=== PATIENT | female | born 1945 | race Caucasian/White ===

== ENCOUNTER → 2017-02-08 | Outpatient (CLI) | payer OTHER ==
[~2017-02-08] MED LIST: AMOX1TAB43 PO; ANT125 PO; ASPI81TA28 PO; CALC-393 PO; FLV1 PO; HYDR25TA5 PO; LISI40TA PO; METH2.5T PO; MULT-506 PO; TNR50 PO
[2017-02-08 19:06] LABS: URINE APPEARANCE CLEAR (CLEAR); URINE BILIRUBIN NEG (NEG); URINE COLOR YELLOW; URINE EPITHELIAL CELL AUTO >30 /lpf (0-5); URINE NITRITE NEG (NEG); URINE PH 7.5 (4.5-7.5); URINE SPECIFIC GRAVITY 1.011 (1.000-1.030); UROBILINOGEN NEG (NEG)
[2017-02-08 19:39] LABS: MANUAL MICROSCOPIC REQUIRED? NO; REVIEW REQ? YES
== END | disposition home or self-care (01) ==
LOC: C.LABSPEC 17:46
PROVIDERS: ATTEND Family Medicine
DX: R30.0 Dysuria (principal)

== ENCOUNTER → 2017-08-04 | Outpatient (CLI) | payer OTHER ==
[2017-08-04 12:43] LABS: BLOOD UREA NITROGEN 13 mg/dl (7-18); BUN/CREATININE RATIO 18.2 (10-20); CALCIUM 8.9 mg/dl (8.5-10.1); CARBON DIOXIDE 26 mmol/L (21-32); CHLORIDE 97 mmol/L (98-107); CREATININE 0.74 mg/dl (0.60-1.20); GLUCOSE 147 mg/dl (70-99); POTASSIUM 3.2 mmol/L (3.5-5.1); SODIUM 131 mmol/L (136-145)
== END | disposition home or self-care (01) ==
LOC: C.LABPBG 08:20
PROVIDERS: ATTEND Family Medicine
DX: Z11.59 Encounter for screening for other viral diseases (principal); I10 Essential (primary) hypertension; E11.9 Type 2 diabetes mellitus without complications

== ENCOUNTER → 2018-02-09 | Outpatient (CLI) | payer OTHER ==
[2018-02-09 13:33] LABS: HEMOGLOBIN A1C 6.6 % (4.5-5.6)
[2018-02-09 13:49] LABS: ALT/SGPT 22 U/L (12-78); BLOOD UREA NITROGEN 16 mg/dl (7-18); CARBON DIOXIDE 25 mmol/L (21-32); CHOLESTEROL 190 mg/dl (0-200); CREATININE 0.69 mg/dl (0.60-1.20); GLUCOSE 120 mg/dl (70-99); POTASSIUM 3.7 mmol/L (3.5-5.1); SODIUM 127 mmol/L (136-145)
[2018-02-09 13:55] LABS: LDL CHOLESTEROL CALCULATED 111 mg/dl
== END | disposition home or self-care (01) ==
LOC: C.LABPBG 07:45
PROVIDERS: ATTEND Family Medicine
DX: I10 Essential (primary) hypertension (principal); E11.9 Type 2 diabetes mellitus without complications

== ENCOUNTER 2023-08-26 07:29 | Inpatient (IN) ==
--- NOTE | 2023-08-26 07:52 | Emergency Department Note ---
Impression & Plan Weakness, Acute hyponatremia, Acute UTI, COVID-19 ED Provider Note Provider: Ki Alcazar MD DATE OF SERVICE: 08/26/2023 CHIEF COMPLAINT: Weakness HISTORY OF PRESENT ILLNESS: Patient is a 77-year-old female history of hypertension and type 2 diabetes presenting here today via ambulance reported with some generalized weakness and fatigue. Patient reportedly with chronic cough and dizziness according the patient and family. Evidently yesterday had a fever to 102 decreased intake. No significant headache, abdominal pain, chest pain, or shortness of breath reported however. Daughter did assist the patient with some DayQuil and NyQuil. Patient states he did not sleep well and had very vivid dreams. No trauma or falls. No intake yet today. Evidently felt like she might pass out and sat on the ground and was less responsive than normal according to family members but no true LOC reported. No seizure activity reported. Daughter has had a bit of a cold recently. PAST MEDICAL HISTORY: As noted above MEDICATIONS: Reviewed home medication but has not taken today or yesterday due to illness SOCIAL HISTORY: Lives at home with PHYSICAL EXAM: GENERAL: alert and oriented in no acute distress on stretcher Head: normocephalic and atraumatic EYES: No injection, discharge or icterus. NECK: Trachea midline. ENT: Mucous membranes pink and moist. LUNGS: Airway patent. No retractions. Breath sounds clear with good air entry bilaterally. HEART: Regular rate and rhythm. No chest wall tenderness ABDOMEN: Soft and non-tender, without guarding or rebound. SKIN: Acyanotic, warm, dry, without rashes EXTREMITIES: Without swelling with arthritic changes noted of the hands bilaterally. 1+ edema of the lower extremities NEUROLOGICAL: No focal deficits. No aphasia. No facial droop or slurred speech. Normal strength and tone in the extremities. Sensation to gross touch normal. EK bpm sinus tachycardia with frequent PVCs. No acute ST segment elevation or depression with some nonspecific T wave changes. QTc 449 CONTINUOUS CARDIAC MONITORING: was ordered and showed a heart rate of 70s-80s bpm in normal sinus Patient's laboratory studies and imaging reviewed. Differential includes Infection, dehydration, metabolic abnormality, hypo/hyperglycemia, electrolyte disturbance, anemia, hypoxia, cardiac sources, intracerebral event, toxicologic, neurologic, as well as other pathologies. IMPRESSION/MEDICAL DECISION MAKING: Seen with the resident physician. Patient hypertensive but no other significant vital abnormalities here. Reported fever and some decreased intake. Some chronic cough and dizziness issues. Has been through vestibular therapy before with some improvement. This seems to be about at baseline. EKG and basic labs obtained. No seizure activity reported. Patient does appear meningitic. Question if she may have a bit of nonspecific viral URI and she does have a bit of congestion but more of a chronic cough. Benign abdomen and doubt acute intra-abdominal pathology. No new focal neurological deficits and doubt intracranial bleed or CVA at this point. Some component of the use of the NyQuil and DayQuil may be contributing as given her age may have caused a bit of drowsiness. Given some IV fluids and patient is reporting some improvement with this as she received some fluids via ambulance on route here Blood work obtained here without leukocytosis and minimal anemia. Does have significant hyponatremia of 125 may be contributing to her symptomatologies. Received 500 mL of normal saline prior to arrival. The initial liter IV fluid bolus here with slow to 70 an hour upon receiving the laboratory results to prevent too rapid correction. No evidence of significant hepatitis or renal dysfunction. Serum awesome's were ordered. Respiratory viral panel completed. Chest x-ray without evidence of pneumonia. History of UTIs and urinalysis positive here. Given a dose ceftriaxone. Respiratory viral panel does return positive for COVID likely contributing. Not hypoxic here. Patient likely primarily symptomatic from the hyponatremia. Does appear to be on hydrochlorothiazide as well may be contributing in addition to her generalized illness with decreased intake. Again slowed IV fluid resuscitation. Will bring in for further evaluation given this. Discussed with the hospitalist team. DIAGNOSIS: Weakness, acute hyponatremia, acute UTI, COVID-19. DISPOSITION: Hospitalist will evaluate Patient was agreeable with this plan. Past Med/Surg History Medical History Bilateral hearing loss Bilateral otitis media with spontaneous rupture of eardrum Diabetes mellitus type 2, diet-controlled HTN (hypertension) Hyponatremia Malignant neoplasm of uterus Rheumatoid arthritis Sensorineural hearing loss (SNHL) of both ears Surgical History History of hernia repair S/P cholecystectomy S/P hysterectomy S/P knee replacement Family History Grandfather Stroke Aunt Cancer Other Asthma No family history of bleeding disorder Denies family history of Ovarian cancer Prostate cancer Heart disease Myocardial infarction Breast cancer Colorectal cancer Hypertension Social History Smoking Status: Never smoker Second Hand Exposure: No; Do You Dip or Chew Tobacco: No; Hx Alcohol Use: No Hx Substance Use: No Preferred Language: Vietnamese Communication Ability: Effective Visual Impairment: No Limitations 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 Motor Vehicle Required: No marital status: Current Living Situation: Spouse current occupational status: retired 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 How many Children do You have: 6 Feels Safe at Home: Yes Childhood Exposure to Second-Hand Smoke: Yes Diet: regular Dental Care, Regularly: Yes Physical Activity Frequency: Daily Seatbelt Use: always Sunscreen Use: Yes Assistive Devices: Cane and Hearing Aid - Bilateral Allergies Allergies Allergy/AdvReac Type Severity Reaction Status Date / Time animal dander Allergy coughing, Verified 04/29/23 13:23 sneezing No Known Drug Allergies Allergy Verified 04/29/23 13:23 Home Meds Home Medications Medication Instructions Recorded Confirmed alendronate 70 mg tablet 70 mg PO WEEKLY 09/18/19 08/26/23 folic acid 1 mg tablet 1 mg PO DAILY 09/18/19 08/26/23 methotrexate sodium 2.5 mg tablet 20 mg PO WEEKLY 09/22/20 08/26/23 hydrochlorothiazide 25 mg tablet 25 mg PO DAILY 08/26/23 08/26/23 potassium chloride 10 mEq 10 meq PO DAILY Hypokalemia 08/26/23 08/26/23 tablet,extended release (Klor-Con) Previous Rx's Medication Instructions Recorded atenolol 50 mg tablet 50 mg PO DAILY #180 tabs 07/26/23 lisinopril 40 mg tablet 40 mg PO DAILY hypertension #90 08/15/23 tabs Results & Data (ED) Vital Signs Vital Signs - 24 hr 08/26/23 08:11 08/26/23 08:12 08/26/23 08:33 Temperature 37.4 C Temperature Source Oral Pulse Rate 76 78 84 Pulse Rate [Right Finger] Respiratory Rate 20 20 Blood Pressure 177/82 H Blood Pressure [Right Arm] Blood Pressure Mean 113 Blood Pressure Mean [Right Arm] Pulse Oximetry 94 94 Oxygen Delivery Method Room Air Room Air Sepsis Recent Fever Within 48 Hours Yes Sepsis New/Unexplained Change in Mental Status No Sepsis Action Taken by Nursing No Action Required 08/26/23 08:29 08/26/23 11:10 08/26/23 13:32 Temperature Temperature Source Pulse Rate 71 Pulse Rate [Right Finger] 75 Respiratory Rate 24 12 Blood Pressure 117/82 Blood Pressure [Right Arm] 177/82 H Blood Pressure Mean 93 Blood Pressure Mean [Right Arm] 113 Pulse Oximetry 96 96 Oxygen Delivery Method Room Air Sepsis Recent Fever Within 48 Hours Sepsis New/Unexplained Change in Mental Status Sepsis Action Taken by Nursing Laboratory Data 08/26/23 08:09 08/26/23 08:09 Lab Results 08/26/23 08/26/23 08/26/23 Range/Units 07:40 07:40 07:40 WBC (4.8-10.8) K/ul RBC (4.20-5.40) M/uL Hgb (12.0-16.0) g/dl Hct (37.0-47.0) % MCV (80.0-100.0) fL MCH (25.0-34.0) pg MCHC (32.0-36.0) g/dL RDW Std Deviation (36.4-46.3) fL RDW Coeff of Connie (11.5-14.5) % Plt Count (130-400) K/uL MPV (9.4-12.4) fL Immature Gran % (Auto) % Neut % (Auto) % Lymph % (Auto) % [place] % (Auto) % Eos % (Auto) % Baso % (Auto) % Neut # (Auto) (1.40-6.50) K/uL Lymph # (Auto) (1.20-3.40) K/uL [place] # (Auto) (0.11-0.59) K/uL Eos # (Auto) (0.00-0.50) K/uL Baso # (Auto) (0.00-0.20) K/uL Immature Gran # (Auto) (0.01-0.20) K/uL Sodium (136-145) mmol/L Potassium (3.5-5.1) mmol/L Chloride (98-107) mmol/L Carbon Dioxide (21-32) mmol/L Anion Gap (3-11) BUN (6-23) mg/dl Creatinine (0.6-1.2) mg/dl Est Cr Clr Drug Dosing ml/min Est GFR ( Amer) ml/min Est GFR (Non-Af Amer) ml/min BUN/Creatinine Ratio (10-20) Glucose (70-99(Fasting)) mg/dl Osmolality (280-300) mOsm/kg Lactate (0.4-2.0) mmol/L Calcium (8.6-10.3) mg/dl Magnesium (1.7-2.4) mg/dl Total Bilirubin (0.2-1.0) mg/dl AST (13-39) U/L ALT (7-52) U/L Alkaline Phosphatase (34-104) U/L Troponin I High Sens Total Protein (6.0-8.3) gm/dl Albumin (3.4-5.0) gm/dl Globulin (2.5-4.0) gm/dl Albumin/Globulin Ratio (0.9-2) TSH (0.300-4.500) uIu/ml Urine Color Yellow Urine Appearance Cloudy A (Clear) Urine pH 6.5 (4.5-7.5) Ur Specific [place] 1.015 (1.000-1.030) Urine Protein Trace H (Negative) Urine Glucose (UA) Negative (Negative) Urine Ketones Trace H (Negative) Urine Blood Negative (Negative) Urine Nitrite Positive A (Negative) Urine Bilirubin Negative (Negative) Urine Urobilinogen Negative (Negative) Ur Leukocyte Esterase 2+ H (Negative) Urine WBC (Auto) >30 H (0-5) /hpf Urine RBC (Auto) 0-4 (0-4) /hpf U Hyaline Cast (Auto) 1-5 (0-5) /lpf U Epithel Cells (Auto) 0-5 (0-5) /lpf Urine Bacteria (Auto) 2+ H (Negative) Urine Osmolality 499 L (500-800) mOsm/kg Ur Random Sodium 86 mmol/L Adenovirus (PCR) (NotDetected) B. pertussis DNA (PCR) (NotDetected) B.parapertussis DNA PCR (NotDetected) C. pneumoniae DNA (PCR) (NotDetected) Coronavirus OC43 (PCR) (NotDetected) Coronavirus HKU1 (PCR) (NotDetected) Coronavirus 229E (PCR) (NotDetected) SARS-CoV-2 (PCR) (NotDetected) Coronavirus NL63 (PCR) (NotDetected) Human Metapneumovir PCR (NotDetected) Influenza Type A (PCR) (NotDetected) Influenza Type B (PCR) (NotDetected) M. pneumoniae (PCR) (NotDetected) Parainfluenza 1 (PCR) (NotDetected) Parainfluenza 2 (PCR) (NotDetected) Parainfluenza 3 (PCR) (NotDetected) Parainfluenza 4 (PCR) (NotDetected) RSV (PCR) (NotDetected) Entero/Rhino (PCR) (NotDetected) 08/26/23 08/26/23 08/26/23 Range/Units 08:09 08:09 08:09 WBC 8.81 (4.8-10.8) K/ul RBC 3.69 L (4.20-5.40) M/uL Hgb 11.9 L (12.0-16.0) g/dl Hct 34.1 L (37.0-47.0) % MCV 92.4 (80.0-100.0) fL MCH 32.2 (25.0-34.0) pg MCHC 34.9 (32.0-36.0) g/dL RDW Std Deviation 47.9 H (36.4-46.3) fL RDW Coeff of Connie 14.5 (11.5-14.5) % Plt Count 253 (130-400) K/uL MPV 9.4 (9.4-12.4) fL Immature Gran % (Auto) 1.2 % Neut % (Auto) 82.9 % Lymph % (Auto) 5.3 % [place] % (Auto) 9.8 % Eos % (Auto) 0.2 % Baso % (Auto) 0.6 % Neut # (Auto) 7.30 H (1.40-6.50) K/uL Lymph # (Auto) 0.47 L (1.20-3.40) K/uL [place] # (Auto) 0.86 H (0.11-0.59) K/uL Eos # (Auto) 0.02 (0.00-0.50) K/uL Baso # (Auto) 0.05 (0.00-0.20) K/uL Immature Gran # (Auto) 0.11 (0.01-0.20) K/uL Sodium 125 L (136-145) mmol/L Potassium 3.8 (3.5-5.1) mmol/L Chloride 93 L (98-107) mmol/L Carbon Dioxide 26 (21-32) mmol/L Anion Gap 6 (3-11) BUN 14 (6-23) mg/dl Creatinine 0.71 (0.6-1.2) mg/dl Est Cr Clr Drug Dosing 73.7 ml/min Est GFR ( Amer) 96.6 ml/min Est GFR (Non-Af Amer) 83.3 ml/min BUN/Creatinine Ratio 19.7 (10-20) Glucose 166 H (70-99(Fasting)) mg/dl Osmolality (280-300) mOsm/kg Lactate 1.0 (0.4-2.0) mmol/L Calcium 8.5 L (8.6-10.3) mg/dl Magnesium 1.4 L (1.7-2.4) mg/dl Total Bilirubin 1.1 H (0.2-1.0) mg/dl AST 39 (13-39) U/L ALT 39 (7-52) U/L Alkaline Phosphatase 61 (34-104) U/L Troponin I High Sens Cancelled Total Protein 6.9 (6.0-8.3) gm/dl Albumin 3.6 (3.4-5.0) gm/dl Globulin 3.3 (2.5-4.0) gm/dl Albumin/Globulin Ratio 1.1 (0.9-2) TSH 1.401 (0.300-4.500) uIu/ml Urine Color Urine Appearance (Clear) Urine pH (4.5-7.5) Ur Specific [place] (1.000-1.030) Urine Protein (Negative) Urine Glucose (UA) (Negative) Urine Ketones (Negative) Urine Blood (Negative) Urine Nitrite (Negative) Urine Bilirubin (Negative) Urine Urobilinogen (Negative) Ur Leukocyte Esterase (Negative) Urine WBC (Auto) (0-5) /hpf Urine RBC (Auto) (0-4) /hpf U Hyaline Cast (Auto) (0-5) /lpf U Epithel Cells (Auto) (0-5) /lpf Urine Bacteria (Auto) (Negative) Urine Osmolality (500-800) mOsm/kg Ur Random Sodium mmol/L Adenovirus (PCR) (NotDetected) B. pertussis DNA (PCR) (NotDetected) B.parapertussis DNA PCR (NotDetected) C. pneumoniae DNA (PCR) (NotDetected) Coronavirus OC43 (PCR) (NotDetected) Coronavirus HKU1 (PCR) (NotDetected) Coronavirus 229E (PCR) (NotDetected) SARS-CoV-2 (PCR) (NotDetected) Coronavirus NL63 (PCR) (NotDetected) Human Metapneumovir PCR (NotDetected) Influenza Type A (PCR) (NotDetected) Influenza Type B (PCR) (NotDetected) M. pneumoniae (PCR) (NotDetected) Parainfluenza 1 (PCR) (NotDetected) Parainfluenza 2 (PCR) (NotDetected) Parainfluenza 3 (PCR) (NotDetected) Parainfluenza 4 (PCR) (NotDetected) RSV (PCR) (NotDetected) Entero/Rhino (PCR) (NotDetected) 08/26/23 08/26/23 08/26/23 Range/Units 08:09 08:25 08:58 WBC (4.8-10.8) K/ul RBC (4.20-5.40) M/uL Hgb (12.0-16.0) g/dl Hct (37.0-47.0) % MCV (80.0-100.0) fL MCH (25.0-34.0) pg MCHC (32.0-36.0) g/dL RDW Std Deviation (36.4-46.3) fL RDW Coeff of Connie (11.5-14.5) % Plt Count (130-400) K/uL MPV (9.4-12.4) fL Immature Gran % (Auto) % Neut % (Auto) % Lymph % (Auto) % [place] % (Auto) % Eos % (Auto) % Baso % (Auto) % Neut # (Auto) (1.40-6.50) K/uL Lymph # (Auto) (1.20-3.40) K/uL [place] # (Auto) (0.11-0.59) K/uL Eos # (Auto) (0.00-0.50) K/uL Baso # (Auto) (0.00-0.20) K/uL Immature Gran # (Auto) (0.01-0.20) K/uL Sodium (136-145) mmol/L Potassium (3.5-5.1) mmol/L Chloride (98-107) mmol/L Carbon Dioxide (21-32) mmol/L Anion Gap (3-11) BUN (6-23) mg/dl Creatinine (0.6-1.2) mg/dl Est Cr Clr Drug Dosing ml/min Est GFR ( Amer) ml/min Est GFR (Non-Af Amer) ml/min BUN/Creatinine Ratio (10-20) Glucose (70-99(Fasting)) mg/dl Osmolality 281 (280-300) mOsm/kg Lactate (0.4-2.0) mmol/L Calcium (8.6-10.3) mg/dl Magnesium (1.7-2.4) mg/dl Total Bilirubin (0.2-1.0) mg/dl AST (13-39) U/L ALT (7-52) U/L Alkaline Phosphatase (34-104) U/L Troponin I High Sens 10.4 Total Protein (6.0-8.3) gm/dl Albumin (3.4-5.0) gm/dl Globulin (2.5-4.0) gm/dl Albumin/Globulin Ratio (0.9-2) TSH (0.300-4.500) uIu/ml Urine Color Urine Appearance (Clear) Urine pH (4.5-7.5) Ur Specific [place] (1.000-1.030) Urine Protein (Negative) Urine Glucose (UA) (Negative) Urine Ketones (Negative) Urine Blood (Negative) Urine Nitrite (Negative) Urine Bilirubin (Negative) Urine Urobilinogen (Negative) Ur Leukocyte Esterase (Negative) Urine WBC (Auto) (0-5) /hpf Urine RBC (Auto) (0-4) /hpf U Hyaline Cast (Auto) (0-5) /lpf U Epithel Cells (Auto) (0-5) /lpf Urine Bacteria (Auto) (Negative) Urine Osmolality (500-800) mOsm/kg Ur Random Sodium mmol/L Adenovirus (PCR) Not Detected (NotDetected) B. pertussis DNA (PCR) Not Detected (NotDetected) B.parapertussis DNA PCR Not Detected (NotDetected) C. pneumoniae DNA (PCR) Not Detected (NotDetected) Coronavirus OC43 (PCR) Not Detected (NotDetected) Coronavirus HKU1 (PCR) Not Detected (NotDetected) Coronavirus 229E (PCR) Not Detected (NotDetected) SARS-CoV-2 (PCR) DETECTED A* (NotDetected) Coronavirus NL63 (PCR) Not Detected (NotDetected) Human Metapneumovir PCR Not Detected (NotDetected) Influenza Type A (PCR) Not Detected (NotDetected) Influenza Type B (PCR) Not Detected (NotDetected) M. pneumoniae (PCR) Not Detected (NotDetected) Parainfluenza 1 (PCR) Not Detected (NotDetected) Parainfluenza 2 (PCR) Not Detected (NotDetected) Parainfluenza 3 (PCR) Not Detected (NotDetected) Parainfluenza 4 (PCR) Not Detected (NotDetected) RSV (PCR) Not Detected (NotDetected) Entero/Rhino (PCR) Not Detected (NotDetected) 08/26/23 Range/Units 12:47 WBC (4.8-10.8) K/ul RBC (4.20-5.40) M/uL Hgb (12.0-16.0) g/dl Hct (37.0-47.0) % MCV (80.0-100.0) fL MCH (25.0-34.0) pg MCHC (32.0-36.0) g/dL RDW Std Deviation (36.4-46.3) fL RDW Coeff of Connie (11.5-14.5) % Plt Count (130-400) K/uL MPV (9.4-12.4) fL Immature Gran % (Auto) % Neut % (Auto) % Lymph % (Auto) % [place] % (Auto) % Eos % (Auto) % Baso % (Auto) % Neut # (Auto) (1.40-6.50) K/uL Lymph # (Auto) (1.20-3.40) K/uL [place] # (Auto) (0.11-0.59) K/uL Eos # (Auto) (0.00-0.50) K/uL Baso # (Auto) (0.00-0.20) K/uL Immature Gran # (Auto) (0.01-0.20) K/uL Sodium 126 L (136-145) mmol/L Potassium 3.4 L (3.5-5.1) mmol/L Chloride 94 L (98-107) mmol/L Carbon Dioxide 24 (21-32) mmol/L Anion Gap 8 (3-11) BUN 12 (6-23) mg/dl Creatinine 0.66 (0.6-1.2) mg/dl Est Cr Clr Drug Dosing 79.3 ml/min Est GFR ( Amer) 100.2 ml/min Est GFR (Non-Af Amer) 86.4 ml/min BUN/Creatinine Ratio 18.2 (10-20) Glucose 147 H (70-99(Fasting)) mg/dl Osmolality (280-300) mOsm/kg Lactate (0.4-2.0) mmol/L Calcium 8.3 L (8.6-10.3) mg/dl Magnesium (1.7-2.4) mg/dl Total Bilirubin (0.2-1.0) mg/dl AST (13-39) U/L ALT (7-52) U/L Alkaline Phosphatase (34-104) U/L Troponin I High Sens Total Protein (6.0-8.3) gm/dl Albumin (3.4-5.0) gm/dl Globulin (2.5-4.0) gm/dl Albumin/Globulin Ratio (0.9-2) TSH (0.300-4.500) uIu/ml Urine Color Urine Appearance (Clear) Urine pH (4.5-7.5) Ur Specific [place] (1.000-1.030) Urine Protein (Negative) Urine Glucose (UA) (Negative) Urine Ketones (Negative) Urine Blood (Negative) Urine Nitrite (Negative) Urine Bilirubin (Negative) Urine Urobilinogen (Negative) Ur Leukocyte Esterase (Negative) Urine WBC (Auto) (0-5) /hpf Urine RBC (Auto) (0-4) /hpf U Hyaline Cast (Auto) (0-5) /lpf U Epithel Cells (Auto) (0-5) /lpf Urine Bacteria (Auto) (Negative) Urine Osmolality (500-800) mOsm/kg Ur Random Sodium mmol/L Adenovirus (PCR) (NotDetected) B. pertussis DNA (PCR) (NotDetected) B.parapertussis DNA PCR (NotDetected) C. pneumoniae DNA (PCR) (NotDetected) Coronavirus OC43 (PCR) (NotDetected) Coronavirus HKU1 (PCR) (NotDetected) Coronavirus 229E (PCR) (NotDetected) SARS-CoV-2 (PCR) (NotDetected) Coronavirus NL63 (PCR) (NotDetected) Human Metapneumovir PCR (NotDetected) Influenza Type A (PCR) (NotDetected) Influenza Type B (PCR) (NotDetected) M. pneumoniae (PCR) (NotDetected) Parainfluenza 1 (PCR) (NotDetected) Parainfluenza 2 (PCR) (NotDetected) Parainfluenza 3 (PCR) (NotDetected) Parainfluenza 4 (PCR) (NotDetected) RSV (PCR) (NotDetected) Entero/Rhino (PCR) (NotDetected) Administered Medications Atenolol (Atenolol 50 Mg Tablet) 50 mg PO DAILY [facility] Stop: 09/25/23 11:59 Last Admin: 08/26/23 13:09 Dose: 50 mg Documented By: JEFFERSON Lisinopril (Lisinopril 40 Mg Tab) 40 mg PO DAILY JESUS Stop: 09/25/23 11:59 Last Admin: 08/26/23 13:08 Dose: 40 mg Documented By: JEFFERSON Potassium Chloride (Potassium Chloride 10 Meq Tabcr) 10 meq PO DAILY JESUS Stop: 09/25/23 11:29 Last Admin: 08/26/23 13:09 Dose: 10 meq Documented By: JEFFERSON Discontinued Medications Sodium Chloride (Nss) 1,000 mls @ 999 mls/hr IV .Q1H1M JESUS Stop: 08/26/23 09:15 Last Admin: 08/26/23 09:05 Dose: 999 mls/hr Documented By: NOEMY Ceftriaxone Sodium (Rocephin) 2,000 mg in 50 mls @ 100 mls/hr IV NOW STA Stop: 08/26/23 09:43 Last Infusion: 08/26/23 10:59 Dose: 0 mls/hr Documented By: Admin: 08/26/23 10:22 Dose: 100 mls/hr Documented By: NOEMY Imaging Data Radiologist's Impression: Chest X-Ray 08/26/23 08:03 XR chest 1V portable HISTORY: weakness COMPARISON: Chest 10/24/2015. FINDINGS: No pneumothorax. No pleural effusions. The cardiac silhouette is normal in size. No acute fractures identified. No focal lung consolidations to suggest a pneumonia. No evidence for pulmonary edema. There are calcifications within the aortic knob. IMPRESSION: No acute process. ACT 112: Negative or not required by law. Electronically signed by: Jose Alejandro Carty M.D. 08/26/2023 8:39 AM Discharge Plan Visit Data Chief Complaint: Weakness Stated Complaint: WEAKNESS, ILLNESS ED Provider: Ki Alcazar Discharge Problem: Weakness, Acute hyponatremia, Acute UTI, COVID-19 Patient Disposition: Being Evaluated by Hospitalist Forms Stand Alone Forms: My [facility] Prescriptions Prescriptions: No Action atenolol 50 mg tablet 50 mg PO DAILY Qty: 180 1RF Rx Instructions: Take 1 tablets QAM lisinopril 40 mg tablet 40 mg PO DAILY Qty: 90 3RF alendronate 70 mg tablet 70 mg PO WEEKLY Rx Instructions: on Tuesdays folic acid 1 mg tablet 1 mg PO DAILY methotrexate sodium 2.5 mg tablet 20 mg PO WEEKLY Patient Comments: PO WEEKLY; Rx Instructions: on Mondays potassium chloride [Klor-Con 10] 10 mEq tablet extended release 10 meq PO DAILY hydrochlorothiazide 25 mg tablet 25 mg PO DAILY Rx Instructions: TAKE 1 TABLET BY MOUTH EVERY DAY Referrals Referrals: Mary Lma MD [Primary Care Provider] -
[2023-08-26] MEDS ORDERED: SODIUM CHLORIDE 0.9% 1,000 ML IV SCH (08:15)
[2023-08-26 08:29] LABS: Basophils # (auto) 0.05 K/uL (0.00-0.20); Basophils % (auto) 0.6 %; Eosinophils # (auto) 0.02 K/uL (0.00-0.50); Eosinophils % (auto) 0.2 %; Hematocrit (blood only) 34.1 % (37.0-47.0); Hemoglobin 11.9 g/dl (12.0-16.0); Immature Granulocytes # (auto) 0.11 K/uL (0.01-0.20); Immature Granulocytes % (auto) 1.2 %; Lymphocytes # (auto) 0.47 K/uL (1.20-3.40); Lymphocytes % (auto) 5.3 %; Mean Corpuscular Hemoglobin 32.2 pg (25.0-34.0); Mean Corpuscular Hgb Conc 34.9 g/dL (32.0-36.0); Mean Corpuscular Volume 92.4 fL (80.0-100.0); Mean Platelet Volume 9.4 fL (9.4-12.4); Monocytes # (auto) 0.86 K/uL (0.11-0.59); Monocytes % (auto) 9.8 %; Neutrophils % (auto) 82.9 %; Platelet Count 253 K/uL (130-400); RDW Coefficient of Variation 14.5 % (11.5-14.5); RDW Standard Deviation 47.9 fL (36.4-46.3); Red Blood Count 3.69 M/uL (4.20-5.40); White Blood Count 8.81 K/ul (4.8-10.8)
--- NOTE | 2023-08-26 08:40 | XRay Report ---
XR chest 1V portable HISTORY: weakness COMPARISON: Chest 10/24/2015. FINDINGS: No pneumothorax. No pleural effusions. The cardiac silhouette is normal in size. No acute f ractures identified. No focal lung consolidations to suggest a pneumonia. No evidence for pulmonary e cb. There are calcifications within the aortic knob. IMPRESSION: No acute process. ACT 112: Negative or not required by law. Electronically signed by: Jose Alejandro Carty M.D. 08/26/2023 8:39 AM
[2023-08-26 08:46] LABS: Albumin Globulin Ratio 1.1 (0.9-2); Albumin Level 3.6 gm/dl (3.4-5.0); BUN Creatinine Ratio 19.7 (10-20); Bilirubin,Total 1.1 mg/dl (0.2-1.0); Calcium 8.5 mg/dl (8.6-10.3); Creatinine Clr Calc Pharmacy 73.7 ml/min; Est GFR (African American) 96.6 ml/min; Est GFR (Non-African American) 83.3 ml/min; Globulin 3.3 gm/dl (2.5-4.0); Magnesium 1.4 mg/dl (1.7-2.4); Potassium 3.8 mmol/L (3.5-5.1); Total Protein 6.9 gm/dl (6.0-8.3)
[2023-08-26 09:01] LABS: Appearance Urine Cloudy (Clear); Bacteria Urine Automated 2+ (Negative); Bilirubin Urine Negative (Negative); Blood Urine Negative (Negative); Color Urine Yellow; Epithelial Cell Urine Auto 0-5 /lpf (0-5); Glucose Urine UA Negative (Negative); Ketones Urine Trace (Negative); Leukocyte Esterase Urine 2+ (Negative); Nitrite Urine Positive (Negative); Protein Urine Trace (Negative); RBC Urine Automated 0-4 /hpf (0-4); Specific Gravity Urine 1.015 (1.000-1.030); Urobilinogen Urine Negative (Negative); WBC Urine Automated >30 /hpf (0-5); pH Urine 6.5 (4.5-7.5)
[2023-08-26 09:01] LABS: Thyroid Stimulating Hormone 1.401 uIu/ml (0.300-4.500)
[2023-08-26] MEDS ORDERED: cefTRIAXone SODIUM 2,000 MG/50 ML BAG IV STA (09:14)
[2023-08-26 09:26] LABS: Adenovirus PCR Not Detected (NotDetected); Bordetella parapertussis PCR Not Detected (NotDetected); Bordetella pertussis PCR Not Detected (NotDetected); Chlamydia pneumoniae PCR Not Detected (NotDetected); Coronavirus 229E PCR Not Detected (NotDetected); Coronavirus HKU1 PCR Not Detected (NotDetected); Coronavirus NL63 PCR Not Detected (NotDetected); Coronavirus OC43PCR Not Detected (NotDetected); Human Metapneumovirus PCR Not Detected (NotDetected); Influenza A PCR Not Detected (NotDetected); Influenza B PCR Not Detected (NotDetected); Mycoplasma pneumoniae PCR Not Detected (NotDetected); Parainfluenza Virus 1 PCR Not Detected (NotDetected); Parainfluenza Virus 2 PCR Not Detected (NotDetected); Parainfluenza Virus 3 PCR Not Detected (NotDetected); Parainfluenza Virus 4 PCR Not Detected (NotDetected); Respiratory Syncytial VirusPCR Not Detected (NotDetected); Rhinovirus/Enterovirus PCR Not Detected (NotDetected)
[2023-08-26 09:29] LABS: Coronavirus CoV-2 (COVID19)PCR DETECTED (NotDetected)
--- NOTE | 2023-08-26 11:10 | History & Physical Report ---
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 Urine osmolality is pending. If sodium downtrends is consistent with SIADH, fluid restrict and can treat conservatively with salt tablets. If sodium improves, discontinue salt tablets and can continue supplemental fluids x1 L until p.o. improves Goal change no more than 8 mEq per 24 hours, meaning baseline is 125. If rising rapidly can give D5 bolus, if rapidly diminishing fluid restrict and give 250 cc 3% saline (3) Acute UTI: Plan: No symptoms. Patient is acutely weak and febrile, with an infected appearing UA which does not have any epithelial cell contamination. We will treat with Rocephin, follow UCx (4) COVID-19: Plan: Patient had COVID at the beginning of the pandemic, no respiratory symptoms since. As far she knows this is a newly positive test since that time and has not had recent COVID positivity/residual positive No hypoxia, steroids/remdesivir not indicated Supportive care. (5) Rheumatoid arthritis: Plan: No acute change in management (6) HTN (hypertension): Plan: Hold hydrochlorothiazide for hyponatremia, continue other antihypertensive (7) Diabetes mellitus type 2, diet-controlled: Plan: Sliding scale basal bolus weight-based, goal BSG 1 101 4 Plan DVT prophylaxis: COVID DVT prophylaxis Diet: DM 2, fluid restrict if sodium dropping/suspect SIADH Disposition: PCU for symptomatic hyponatremia CODE STATUS: Full code History of Present Illness Primary Care Provider: Mary Lam MD Sue a 77-year-old female who presents with weakness, hyponatremia/UTI/COVID+ on admit. Presenting symptoms 102*F. Chronic unchanged cough. No UTI symptoms. Predominant symptoms is weakness. No chest pain, chest pressure, shortness of breath. +confusion for 24 hours with fever. Chronic unchanged dizziness, not present at time of admit but feels unsteady on her feet due to weakness Weak for 2 days more than normal "Dizzy" which does not feel like vertigo, just feels like I'm going to fall. No syncope, maybe a little presyncope No chest pain, no chest pressure No chest pressure +Fevers yesterday. 102.6, improved with dayquil, nyqual last evening Chronic cough, hasn't seemed to change. No sputum production. No dysuira. Did not take any medications this morning or yesterday OK appetite last few weeks, but poor appetite last 2-3 days Medical History: Reviewed Medications: Reviewed Surgical History: Reviewed Family history: Reviewed Allergies: Reviewed Social History: Rev Code Status: Ful Allergies Allergy/AdvReac Type Severity Reaction Status Date / Time animal dander Allergy coughing, Verified 04/29/23 13:23 sneezing No Known Drug Allergies Allergy Verified 04/29/23 13:23 Home Medications Medication Instructions Recorded Confirmed Type alendronate 70 mg tablet 70 mg PO WEEKLY 09/18/19 08/26/23 History folic acid 1 mg tablet 1 mg PO DAILY 09/18/19 08/26/23 History methotrexate sodium 2.5 mg tablet 20 mg PO WEEKLY 09/22/20 08/26/23 History atenolol 50 mg tablet 50 mg PO DAILY #180 tabs 07/26/23 08/26/23 Rx lisinopril 40 mg tablet 40 mg PO DAILY hypertension #90 08/15/23 08/26/23 Rx tabs hydrochlorothiazide 25 mg tablet 25 mg PO DAILY 08/26/23 08/26/23 History potassium chloride 10 mEq 10 meq PO DAILY Hypokalemia 08/26/23 08/26/23 History tablet,extended release (Klor-Con) Past Med/Surg History Medical History Bilateral hearing loss Bilateral otitis media with spontaneous rupture of eardrum Diabetes mellitus type 2, diet-controlled HTN (hypertension) Hyponatremia Malignant neoplasm of uterus Rheumatoid arthritis Sensorineural hearing loss (SNHL) of both ears Surgical History History of hernia repair S/P cholecystectomy S/P hysterectomy S/P knee replacement Family History Grandfather Stroke Aunt Cancer Other Asthma No family history of bleeding disorder Denies family history of Ovarian cancer Prostate cancer Heart disease Myocardial infarction Breast cancer Colorectal cancer Hypertension Social History Smoking Status: Never smoker Second Hand Exposure: No; Do You Dip or Chew Tobacco: No; Hx Alcohol Use: No Hx Substance Use: No Preferred Language: Austrian Communication Ability: Effective Visual Impairment: No Limitations Hearing Ability: Use of Hearing Aid Wardrobe Coordinator Required: No marital status: Current Living Situation: Spouse current occupational status: retired 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 NAD. Cooperative. HEENT: Atraumatic, normocephalic. Pulm: CTAB A&P. -wheezes, -rales, -rhonchi. Symmetrical chest rise. No increased work of breathing. No respiratory distress. Cardiac: RRR, -mrg. Radial pulses intact and symmetrical. Abdominal: Nontender, nondistended, soft. BS present. Extremities: Moves all extremities equally, no strength deficits. Fatigues very easily. Sensation soft touch intact in hands and feet without deficit Results & Data Results & Data Vital Signs (Past 12 Hours) Vital Signs Temp Pulse Resp BP Pulse Ox O2 Del Method 08/26/23 08:29 Room Air 08/26/23 08:33 84 08/26/23 08:12 37.4 C 78 20 177/82 H 94 Room Air 08/26/23 08:11 76 20 94 Room Air PG Care Time/CCT Total # of Minutes Spent Total Time Spent with Patient: Total time spent is greater than 50% in coordination of care (as documented) at patient's floor/unit and/or counseling patient: Coding Level of Care Code 72615 INT INP/OBS CARE 3/75MIN Diagnoses Weakness R53.1 Acute hyponatremia E87.1 Acute UTI N39.0 COVID-19 U07.1 Rheumatoid arthritis M06.9 HTN (hypertension) I10 Diabetes mellitus type 2, diet-controlled E11.9
[2023-08-26] MEDS: lisinopril 40 MG TAB PO SCH (13:08)
[2023-08-26] MEDS: ATENOLOL 50 MG TABLET PO SCH (13:09)
[2023-08-26] MEDS: POTASSIUM CHLORIDE 10 MEQ TABCR PO SCH (13:09)
[2023-08-26 13:37] LABS: BUN Creatinine Ratio 18.2 (10-20); Calcium 8.3 mg/dl (8.6-10.3); Creatinine Clr Calc Pharmacy 79.3 ml/min; Est GFR (African American) 100.2 ml/min; Est GFR (Non-African American) 86.4 ml/min; Potassium 3.4 mmol/L (3.5-5.1)
--- NOTE | 2023-08-26 14:53 | Electrocardiogram Report ---
Test Reason : Blood Pressure : / mmHG Vent. Rate : 109 BPM Atrial Rate : 109 BPM P-R Int : 172 ms QRS Dur : 090 ms QT Int : 334 ms P-R-T Axes : 079 012 067 degrees QTc Int : 449 ms Sinus tachycardia with frequent Premature ventricular complexes Nonspecific ST and T wave abnormality Abnormal ECG When compared with ECG of 25-OCT-2015 07:59, Premature ventricular complexes are now Present Vent. rate has increased BY 41 BPM Nonspecific T wave abnormality no longer evident in Inferior leads Nonspecific T wave abnormality, improved in Anterolateral leads Confirmed by Jaret Perdomo ([id number]) on 08/26/2023 2:52:57 PM Referred By: REFERRED SELF Confirmed By:Jaret Perdomo
[2023-08-26 16:28] LABS: BUN Creatinine Ratio 16.4 (10-20); Calcium 7.8 mg/dl (8.6-10.3); Creatinine Clr Calc Pharmacy 71.7 ml/min; Est GFR (African American) 93.4 ml/min; Est GFR (Non-African American) 80.6 ml/min; Potassium 3.6 mmol/L (3.5-5.1)
[2023-08-26] MEDS ORDERED: CARBOHYDRATES FOR HYPOGLYCEMIA PO PRN (16:39)
[2023-08-26] MEDS ORDERED: GLUCOSE 40% GEL 15 GM TUBE PO PRN (16:39)
[2023-08-26] MEDS ORDERED: MAGNESIUM SULFATE / D5W 1 GM/100 ML BAG IV ONE (16:39)
[2023-08-26] MEDS ORDERED: DEXTROSE 50% 50 ML SYRINGE IV PRN (16:39)
[2023-08-26] MEDS ORDERED: GLUCOSE 10 TAB/TUBE PO PRN (16:39)
[2023-08-26] MEDS ORDERED: GLUCAGON FOR INJ 1 MG VIAL SQ PRN (16:39)
[2023-08-26] MEDS: INSULIN ASPART PER UNIT CHARGE SC SCH ×2 (18:46→21:07)
[2023-08-26 20:42] LABS: BUN Creatinine Ratio 15.6 (10-20); Calcium 7.8 mg/dl (8.6-10.3); Est GFR (African American) 87.5 ml/min; Est GFR (Non-African American) 75.5 ml/min; Potassium 3.6 mmol/L (3.5-5.1)
[2023-08-26] MEDS: SODIUM CHLORIDE 1 GM TABLET PO SCH (20:54)
[2023-08-26] MEDS ORDERED: LANTUS PER UNIT CHARGE SQ SCH (21:00)
[2023-08-26 23:57] LABS: BUN Creatinine Ratio 18.8 (10-20); Calcium 7.6 mg/dl (8.6-10.3); Est GFR (African American) 98.7 ml/min; Est GFR (Non-African American) 85.2 ml/min; Potassium 3.5 mmol/L (3.5-5.1)
[2023-08-27] MEDS: INSULIN ASPART PER UNIT CHARGE SC SCH ×4 (07:30→20:35)
[2023-08-27] MEDS: POTASSIUM CHLORIDE 10 MEQ TABCR PO SCH (08:50)
[2023-08-27] MEDS: SODIUM CHLORIDE 1 GM TABLET PO SCH ×2 (08:50→20:31)
[2023-08-27] MEDS: lisinopril 40 MG TAB PO SCH (08:50)
[2023-08-27] MEDS: ATENOLOL 50 MG TABLET PO SCH (08:50)
[2023-08-27] MEDS: FOLIC ACID 1 MG TAB PO SCH (08:51)
[2023-08-27] MEDS ORDERED: INFLUENZA VACCINE HIGH-DOSE (HD-IIV4) PF 65+ 0.7mL SYR IM ONE (09:00)
[2023-08-27] MEDS: cefTRIAXone SODIUM 2,000 MG in DEXTROSE 5 % MINI-B 50 ML IV SCH (12:16)
--- NOTE | 2023-08-27 12:44 | Hospitalist Progress Note ---
Date of Service August 27, 2023 Assessment & Plan (1) Weakness: Plan: Generalized. Present on admission. She may have had a syncopal episode prior to admission. Undoubtedly due to the presence of UTI. I doubt if she has active COVID viral infection. OT and PT assessments ordered (2) Acute hyponatremia: Plan: Mild. Serum osmolarity 281. Serial labs. (3) Acute UTI: Plan: Gram-negative rods isolated. Currently on Rocephin. This probably caused a near syncopal episode prior to admission. (4) COVID-19: Plan: Nasal swab positivity. No signs of active infection. Supportive care. (5) Rheumatoid arthritis: Plan: Stable. Continue current management. (6) HTN (hypertension): Plan: Stable. Hold hydrochlorothiazide for hyponatremia (7) Diabetes mellitus type 2, diet-controlled: Plan: ADA diet. Sliding scale coverage as needed. No indication for Lantus therapy Plan Hopeful discharge to home tomorrow, August 28, on an oral antibiotic Admission and Anticipated Discharge Date Admission Date: August 26, 2023 Subjective Feeling better. Alert and oriented. Daughter is at the bedside. I suspect her current symptoms of weakness are due to the UTI. She was COVID nasal swab positive on on admission but does not have any evidence of active COVID infection. Review of Systems Review of Systems: Constitutional-no fever or chills ENT-no blurred vision, no double vision, no epistaxis, no sore throat Respiratory-no cough, no wheezing, no shortness of breath Cardiac-no palpitations, no chest pain, no syncope GI-no nausea, vomiting, diarrhea, melena, hematochezia -no urinary retention, no urinary incontinence, no dysuria, no hematuria Musculoskeletal-no joint pain, no muscle tenderness Skin-no bruising, no rashes, no pruritus Neuro-mild generalized weakness present on admission has improved Psych-no depression, no anxiety Physical Exam Physical Exam: General-alert and oriented x3, no fevers, no chills HEENT-head atraumatic and normocephalic, pupils equal and reactive to light, extraocular muscles intact Neck-no lymphadenopathy or thyromegaly, trachea midline Chest-clear to auscultation percussion. No rales wheezing or rhonchi Cardiac-regular rate and rhythm, normal S1 and S2 Abdomen-normal bowel sounds, nontender, no hepatosplenomegaly Extremities-no cyanosis, clubbing, or edema Neuro-cranial nerves II through XII intact, motor and sensory function within no rmal limits, strength symmetrical , no focal deficits Psych-normal affect, normal mood Results & Data Results & Data Vital Signs (Past 12 Hours) Vital Signs Temp Pulse Pulse Resp BP Pulse Ox O2 Del Method 08/27/23 11:39 36.7 C 77 17 145/67 H 94 Room Air 08/27/23 07:45 37.1 C 84 21 154/80 H 95 Room Air 08/27/23 07:38 61 08/27/23 03:30 36.7 C 79 16 113/83 95 Room Air Laboratory Results 08/26/23 08:09 08/26/23 23:27 PG Care Time/CCT Total # of Minutes Spent Total Time Spent with Patient: Total time spent is greater than 50% in coordination of care (as documented) at patient's floor/unit and/or counseling patient: Coding Level of Care Code 85068 SUB INP/OBS CARE 3/50MIN Diagnoses Weakness R53.1 Acute hyponatremia E87.1 Acute UTI N39.0 COVID-19 U07.1 Rheumatoid arthritis M06.9 HTN (hypertension) I10 Diabetes mellitus type 2, diet-controlled E11.9
[2023-08-28 06:53] LABS: Basophils # (auto) 0.02 K/uL (0.00-0.20); Basophils % (auto) 0.6 %; Eosinophils # (auto) 0.12 K/uL (0.00-0.50); Eosinophils % (auto) 3.4 %; Hematocrit (blood only) 30.3 % (37.0-47.0); Hemoglobin 10.6 g/dl (12.0-16.0); Immature Granulocytes # (auto) 0.15 K/uL (0.01-0.20); Immature Granulocytes % (auto) 4.2 %; Lymphocytes # (auto) 0.77 K/uL (1.20-3.40); Lymphocytes % (auto) 21.8 %; Mean Corpuscular Hemoglobin 32.6 pg (25.0-34.0); Mean Corpuscular Volume 93.2 fL (80.0-100.0); Mean Platelet Volume 9.3 fL (9.4-12.4); Monocytes # (auto) 0.82 K/uL (0.11-0.59); Monocytes % (auto) 23.2 %; Neutrophils # (auto) 1.66 K/uL (1.40-6.50); Neutrophils % (auto) 46.8 %; Platelet Count 210 K/uL (130-400); RDW Coefficient of Variation 14.6 % (11.5-14.5); RDW Standard Deviation 48.4 fL (36.4-46.3); Red Blood Count 3.25 M/uL (4.20-5.40); White Blood Count 3.54 K/ul (4.8-10.8)
[2023-08-28 07:19] LABS: Calcium 7.6 mg/dl (8.6-10.3); Creatinine Clr Calc Pharmacy 81.7 ml/min; Est GFR (African American) 102.2 ml/min; Est GFR (Non-African American) 88.2 ml/min; Potassium 3.6 mmol/L (3.5-5.1)
[2023-08-28] MEDS: INSULIN ASPART PER UNIT CHARGE SC SCH ×2 (07:52→11:58)
[2023-08-28] MEDS: SODIUM CHLORIDE 1 GM TABLET PO SCH (07:59)
[2023-08-28] MEDS: FOLIC ACID 1 MG TAB PO SCH (07:59)
[2023-08-28] MEDS: ATENOLOL 50 MG TABLET PO SCH (07:59)
[2023-08-28] MEDS: lisinopril 40 MG TAB PO SCH (08:00)
[2023-08-28] MEDS: POTASSIUM CHLORIDE 10 MEQ TABCR PO SCH (08:00)
[2023-08-28] MEDS: cefTRIAXone SODIUM 2,000 MG in DEXTROSE 5 % MINI-B 50 ML IV SCH (11:58)
--- NOTE | 2023-08-28 12:08 | Discharge Summary ---
Date of Service August 28, 2023 Admission HPI Per Admitting Provider Sue a 77-year-old female who presents with weakness, hyponatremia/UTI/COVID+ on admit. Presenting symptoms 102*F. Chronic unchanged cough. No UTI symptoms. Predominant symptoms is weakness. No chest pain, chest pressure, shortness of breath. +confusion for 24 hours with fever. Chronic unchanged dizziness, not present at time of admit but feels unsteady on her feet due to weakness Weak for 2 days more than normal "Dizzy" which does not feel like vertigo, just feels like I'm going to fall. No syncope, maybe a little presyncope No chest pain, no chest pressure No chest pressure +Fevers yesterday. 102.6, improved with dayquil, nyqual last evening Chronic cough, hasn't seemed to change. No sputum production. No dysuira. Did not take any medications this morning or yesterday OK appetite last few weeks, but poor appetite last 2-3 days Medical History: Reviewed Medications: Reviewed Surgical History: Reviewed Family history: Reviewed Allergies: Reviewed Social History: Rev Code Status: Ful Principal Diagnosis E. coli UTI, weakness, hyponatremia, positive COVID nasal swab Discharge Exam General-alert and oriented x3, no fevers, no chills HEENT-head atraumatic and normocephalic, pupils equal and reactive to light, extraocular muscles intact Neck-no lymphadenopathy or thyromegaly, trachea midline Chest-clear to auscultation percussion. No rales wheezing or rhonchi Cardiac-regular rate and rhythm, normal S1 and S2 Abdomen-normal bowel sounds, nontender, no hepatosplenomegaly Extremities-no cyanosis, clubbing, or edema Neuro-cranial nerves II through XII intact, motor and sensory function within normal limits, strength symmetrical , no focal deficits Psych-normal affect, normal mood Discharge Data Allergies Allergy/AdvReac Type Severity Reaction Status Date / Time animal dander Allergy coughing, Verified 04/29/23 13:23 sneezing No Known Drug Allergies Allergy Verified 04/29/23 13:23 Consultations 08/26/23 10:49 ED Decision to Admit Stat Hospital Course (1) Weakness: Generalized. Present on admission. Now improved. She may have had a syncopal episode prior to admission. Undoubtedly due to the presence of UTI. I doubt if she has active COVID viral infection. OT and PT assessments noted (2) Acute hyponatremia: Mild. Serum osmolarity 281. Serial labs. Asymptomatic. No intervention needed at this time (3) Acute UTI: E. coli isolated. Currently on Rocephin. This probably caused a near syncopal episode prior to admission. (4) COVID-19: Nasal swab positivity. No signs of active infection. Supportive care. (5) Rheumatoid arthritis: Stable. Continue current management. (6) HTN (hypertension): Stable. Discontinue hydrochlorothiazide for hyponatremia. (7) Diabetes mellitus type 2, diet-controlled: ADA diet. Sliding scale coverage as needed. No indication for Lantus therapy Plan Home today, August 28, on oral Cipro. Hydrochlorothiazide has been discontinued due to mild hyponatremia Total Time Total Time Spent Total Time Spent (In Minutes): 45-minute Discharge Plan Discharge Items Patient Disposition: Home - Self-Care Reason For Visit: HYPONATREMIA, WEAKNESS Discharge Diagnosis: E. coli UTI, diuretic induced hyponatremia, weakness and near syncope due to UTI Activity: Resume your previous activity Non-emergency contact: Primary Care Provider Call non-emergency contact if: your symptoms worsen Follow-up/Referrals: Mary Lam MD [Primary Care Provider] - Diet: Carb Consistent or DM2 Addtl Attending Provider Instructions: Take Cipro for 5 days. Hydrochlorothiazide has been discontinued due to low sodium levels. Take a vitamin D3 supplement daily Pending Studies at Discharge: No Stand-Alone Forms: [facility], Smoking Cessation Medications and DC Order Prescriptions: New ciprofloxacin HCl [Cipro] 250 mg tablet 250 mg PO BID Qty: 10 0RF Continued atenolol 50 mg tablet 50 mg PO DAILY Qty: 180 1RF Rx Instructions: Take 1 tablets QAM lisinopril 40 mg tablet 40 mg PO DAILY Qty: 90 3RF alendronate 70 mg tablet 70 mg PO WEEKLY Rx Instructions: on Tuesdays folic acid 1 mg tablet 1 mg PO DAILY methotrexate sodium 2.5 mg tablet 20 mg PO WEEKLY Patient Comments: PO WEEKLY; Rx Instructions: on Mondays potassium chloride [Klor-Con 10] 10 mEq tablet extended release 10 meq PO DAILY Discontinued hydrochlorothiazide 25 mg tablet 25 mg PO DAILY Rx Instructions: TAKE 1 TABLET BY MOUTH EVERY DAY Discharge Orders: Discharge Order (Routine); Ordered 08/28/23 Ordered By: Abner Simental Admission Data Admit Date/Time: 08/26/23 14:45 Attending Provider: Abner Simental Admit Provider: Jim Cruz Primary Care Provider: Mary Lam Other Providers: Jim Cruz Coding Level of Care Code 93089 INP/OBS DISCH >30 MIN Diagnoses Weakness R53.1 Acute hyponatremia E87.1 Acute UTI N39.0 COVID-19 U07.1 Rheumatoid arthritis M06.9 HTN (hypertension) I10 Diabetes mellitus type 2, diet-controlled E11.9
== END 2023-08-28 13:02 | disposition home or self-care (01) | DRG 689 ==
LOC: ED 07:29 → SUATTDRO 14:45 → EDINP 14:45 → 2E 20:09

== ENCOUNTER 2024-07-11 08:35 | Inpatient (IN) ==
--- NOTE | 2024-07-11 08:42 | Emergency Department Note ---
Impression & Plan Unresponsive episode, Recurrent syncope, Aortic valve stenosis with insufficiency, Hypomagnesemia ED Provider Note NAME: CHIKIS QUEZADA AGE: 78 SEX: F : 1945 ARRIVES VIA: Ambulance INFORMANT: Patient ED PROVIDER(S): Pk Hollins MD CHIEF COMPLAINT: Syncope PLAN: Disposition: Admit MEDICAL DECISION MAKING: The patient is a pleasant 78-year-old woman with a past medical history of aortic stenosis, mitral regurgitation, history of cardiomyopathy with most recent echo in January 2024 with EF of 50-55%, type 2 diabetes, osteoarthritis, hypertension who presents to the emergency department via EMS and accompanied by her and daughter for evaluation of episode of syncope/unresponsiveness which occurred prior to arrival. Patient was seen for a similar episode by this provider on 06/06 where she had unremarkable CT of the head and CT of the head and neck and was treated for dehydration low magnesium. On her prior visit the symptoms were associated with getting up after sleeping and feeling lightheaded as she made her way to the bathroom and kitchen to prepare breakfast. Today she reports waking up and feeling okay and went to the bathroom and had a bowel movement and felt okay subsequently however she went downstairs with her motorized stair chair and upon standing up from that she began to feel lightheaded and nauseated and sat at the table for 15 minutes or so still feeling unwell and then had an unresponsive episode where family reports her eyes were open but she was not responding and she appeared oh with dilated pupils. Patient does not recall family calling to her. She denies any preceding chest pain or shortness of breath. She does report feeling weak and achy in her body yesterday but denies cough, congestion, fevers, nausea, vomiting, diarrhea or urinary symptoms. On my evaluation the patient is fatigued appearing but no distress, afebrile blood pressure in the 200s/70s and vital signs otherwise stable. She appears clinically dry. She has no focal logic deficits. She has a 3/6 systolic murmur which radiates to bilateral shoulders and neck. EKG without overt acute ischemia. CXR negative for acute cardiopulmonary process per my personal preliminary review/interpretation. WBC, H/H and platelets within normal limits. Chemistry without metabolic acidosis. Electrolytes with magnesium 1.5 with IV repletion initiated. Total bilirubin 1.1, nonspecific and LFTs otherwise normal. High-sensitivity troponin 9.6, within normal limits. Lipase not elevated. TSH within limits. UA without evidence of infection. Respiratory BioFire was negative. Lyme screen was negative. CT of the head and CT of the head neck were performed and were negative for acute ICH, ischemia or severe narrowing occlusion of large vessels. CT of the chest was also negative for acute aortic pathology. Moderate aortic valvular calcification with moderate coronary artery calcification as described. Patient was treated with IV fluid hydration and IV magnesium and continue to feel improved without dizziness. Given the recurrence of her syncope/unresponsive episode with prolonged episode patient and at bedside agree with plan for admission for further management. Case was discussed with Dr. Cruz, [facility] hospitalist, who will evaluate the patient for admission. Triage Nursing notes reviewed and agree them. Prior/external medical records reviewed Vital Signs: reviewed Differential diagnosis: Vasovagal event, dehydration, infection, hypoglycemia, electrolyte abnormalities, cardiac sources, intracerebral event, pulmonary embolism, seizure, toxicologic, neurologic, as well as other pathologies. ER treatment provided: See below. Diagnostics interpreted by me: ECG: Sinus rhythm with occasional PVCs, 99 bpm, no ectopy, no overt ST evation or depression, QTc 426, QRS 84. Cardiac Monitoring: An order for continuous cardiac monitoring was placed and demonstrated Sinus rhythm with occasional PVCs, 99 bpm. Laboratory studies: See below Imaging studies: See below Consultation(s): Case was discussed with Dr. Cruz, [facility] hospitalist, who will evaluate the patient for admission. HPI: The patient is a pleasant 78-year-old woman with a past medical history of aortic stenosis, mitral regurgitation, history of cardiomyopathy with most recent echo in January 2024 with EF of 50-55%, type 2 diabetes, osteoarthritis, hypertension who presents to the emergency department via EMS and accompanied by her and daughter for evaluation of episode of syncope/unresponsiveness which occurred prior to arrival. Patient was seen for a similar episode by this provider on 06/06 where she had unremarkable CT of the head and CT of the head and neck and was treated for dehydration low magnesium. On her prior visit the symptoms were associated with getting up after sleeping and feeling lightheaded as she made her way to the bathroom and kitchen to prepare breakfast. Today she reports waking up and feeling okay and went to the bathroom and had a bowel movement and felt okay subsequently however she went downstairs with her motorized stair chair and upon standing up from that she began to feel lightheaded and nauseated and sat at the table for 15 minutes or so still feeling unwell and then had an unresponsive episode where family reports her eyes were open but she was not responding and she appeared oh with dilated pupils. Patient does not recall family calling to her. She denies any preceding chest pain or shortness of breath. She does report feeling weak and achy in her body yesterday but denies cough, congestion, fevers, nausea, vomiting, diarrhea or urinary symptoms. ROS: See above HPI for pertinent positives & negatives. A total of 10 systems reviewed and were otherwise negative. VITALS:See Below PHYSICAL EXAMINATION: GENERAL: Awake, alert, fatigued-appearing, in no distress HENT: Normocephalic, atraumatic. Oropharynx with dry mucous membranes and otherwise unremarkable. EYES: Normal conjunctiva. Sclera non-icteric. EOMI. No nystamgus. PEARRL. NECK: Supple. No nuchal rigidity. FROM. No JVD. RESPIRATORY: Clear to auscultation. CARDIAC: Regular rate, normal rhythm. 3/6 systolic murmur. Extremities warm and well perfused. Pulses equal. ABDOMEN: Soft, non-distended. No tenderness to palpation. No rebound or guarding. No masses. MUSCULOSKELETAL: Chest examination reveals no tenderness. The back is symmetrical on inspection without obvious abnormality. There is no CVA tenderness to palpation. No joint edema. LOWER EXTREMITIES: Calves are equal size bilaterally and non-tender. No edema. No discoloration. NEURO: Normal sensorium. No sensory or motor deficits noted. 5/5 strength and SILT x 4 extremities. Intact finger to nose, alternating palms. SKIN: No rash or jaundice noted. Pk Hollins MD Past Med/Surg History Problem List (Updated 07/12/24 @ 01:36 by Pk Hollins MD) Dehydration Hypomagnesemia (Acute) Recurrent syncope (Acute) Unresponsive episode (Acute) Mitral regurgitation Aortic valve stenosis with insufficiency (Acute) Lightheadedness Frequent PVCs Cardiomyopathy Diabetes mellitus type 2, diet-controlled Frequent urinary tract infections ETD (eustachian tube dysfunction) Sensorineural hearing loss (SNHL) of both ears Hyponatremia (Chronic) Bilateral hearing loss (Chronic) History of squamous cell carcinoma in situ of skin Osteoarthritis, knee (Chronic 12/24/14) Medical History (Updated 07/12/24 @ 01:36 by Pk Hollins MD) Aortic valve sclerosis Malignant neoplasm of uterus Rheumatoid arthritis Bilateral otitis media with spontaneous rupture of eardrum HTN (hypertension) Surgical History History of hernia repair S/P knee replacement S/P hysterectomy S/P cholecystectomy Family History Grandfather Stroke Aunt Cancer Other Asthma No family history of bleeding disorder Denies family history of Ovarian cancer Prostate cancer Heart disease Myocardial infarction Breast cancer Colorectal cancer Hypertension Social History Smoking Status: Never smoker Second Hand Exposure: No; Do You Dip or Chew Tobacco: No; Hx Alcohol Use: No Hx Substance Use: No Preferred Language: Occitan Communication Ability: Effective Visual Impairment: No Limitations Hearing Ability: Use of Hearing Aid Spa Director/Finance Required: No Beliefs That Will Affect Care: None marital status: Current Living Situation: Spouse Current Living Situation Comment: At home w/ current occupational status: retired 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 How many Children do You have: 6 Other Information That Helps Us Care for You: No Feels Safe at Home: Yes Childhood Exposure to Second-Hand Smoke: Yes Diet: regular Dental Care, Regularly: Yes Physical Activity Frequency: Daily Seatbelt Use: always Sunscreen Use: Yes Assistive Devices: Walker Allergies Allergies Allergy/AdvReac Type Severity Reaction Status Date / Time animal dander Allergy coughing, Verified 06/06/24 10:57 sneezing No Known Drug Allergies Allergy Verified 04/24/24 15:04 Home Meds Home Medications Medication Instructions Recorded Confirmed methotrexate sodium 2.5 mg tablet 20 mg PO WEEKLY 09/22/20 07/11/24 potassium chloride 10 mEq 10 meq PO DAILY 10/31/23 07/11/24 tablet,extended release aspirin 81 mg tablet,delayed 81 mg PO DAILY 06/06/24 07/11/24 release calcium carbonate 500 mg PO DAILY 06/06/24 07/11/24 methenamine hippurate 1 gram 1 g PO HS 06/06/24 07/11/24 tablet (Hiprex) multivitamin 1 tab PO DAILY 06/06/24 07/11/24 magnesium 1 tab PO DIRECTED 07/11/24 07/11/24 Previous Rx's Medication Instructions Recorded metoprolol succinate 25 mg 25 mg PO DAILY #90 tabs 10/31/23 tablet,extended release 24 hr sacubitril 24 mg-valsartan 26 mg 1 tab PO BID #180 tabs 01/04/24 tablet (Entresto) nitrofurantoin macrocrystal 50 mg 50 mg PO HS #90 caps 04/23/24 capsule Results & Data (ED) Vital Signs Vital Signs - 24 hr 07/11/24 08:45 07/11/24 08:49 07/11/24 09:00 Temperature Temperature Source Pulse Rate 92 H 69 70 Pulse Rate [Apical] Pulse Rate from SpO2 Sensor 89 72 Pulse Rhythm Respiratory Rate 17 26 H Respiratory Effort / Characteristics Respiratory Depth Respiratory Pattern Blood Pressure 205/70 H 178/125 H Blood Pressure [Right Arm] Blood Pressure Mean 115 142 Blood Pressure Mean [Right Arm] Blood Pressure Position Pulse Oximetry 97 95 Oxygen Delivery Method Room Air Sepsis Recent Fever Within 48 Hours Sepsis New/Unexplained Change in Mental Status Sepsis Action Taken by Nursing 07/11/24 09:15 07/11/24 09:15 07/11/24 09:19 Temperature 36.6 C 36.6 C Temperature Source Oral Oral Pulse Rate 89 89 Pulse Rate [Apical] 89 Pulse Rate from SpO2 Sensor Pulse Rhythm Regular Respiratory Rate 22 22 22 Respiratory Effort / Characteristics Non-Labored Spontaneous Non-Labored Spontaneous Respiratory Depth Normal Normal Respiratory Pattern Regular Regular Blood Pressure 205/70 H Blood Pressure [Right Arm] 205/70 H Blood Pressure Mean 115 Blood Pressure Mean [Right Arm] 115 Blood Pressure Position Semi-fowlers Pulse Oximetry 95 95 95 Oxygen Delivery Method Room Air Room Air Room Air Sepsis Recent Fever Within 48 Hours No Sepsis New/Unexplained Change in Mental Status No Sepsis Action Taken by Nursing No Action Required 07/11/24 09:30 07/11/24 11:00 07/11/24 11:30 Temperature Temperature Source Pulse Rate 58 L 54 L Pulse Rate [Apical] Pulse Rate from SpO2 Sensor 60 73 55 L Pulse Rhythm Respiratory Rate 19 21 14 Respiratory Effort / Characteristics Respiratory Depth Respiratory Pattern Blood Pressure 173/76 H 159/85 H 166/85 H Blood Pressure [Right Arm] Blood Pressure Mean 133 109 95 Blood Pressure Mean [Right Arm] Blood Pressure Position Pulse Oximetry 97 96 97 Oxygen Delivery Method Room Air Room Air Room Air Sepsis Recent Fever Within 48 Hours Sepsis New/Unexplained Change in Mental Status Sepsis Action Taken by Nursing 07/11/24 12:52 07/11/24 13:31 Temperature Temperature Source Pulse Rate 68 86 Pulse Rate [Apical] Pulse Rate from SpO2 Sensor 39 L Pulse Rhythm Respiratory Rate 17 Respiratory Effort / Characteristics Respiratory Depth Respiratory Pattern Blood Pressure 189/107 H Blood Pressure [Right Arm] Blood Pressure Mean 150 Blood Pressure Mean [Right Arm] Blood Pressure Position Pulse Oximetry 97 Oxygen Delivery Method Room Air Sepsis Recent Fever Within 48 Hours Sepsis New/Unexplained Change in Mental Status Sepsis Action Taken by Nursing Laboratory Data Attestation: I reviewed the patient's lab results. 07/11/24 08:43 07/11/24 10:01 Lab Results 07/11/24 07/11/24 07/11/24 Range/Units 08:43 09:26 10:01 WBC 8.21 (4.8-10.8) K/ul RBC 4.12 L (4.20-5.40) M/uL Hgb 13.3 (12.0-16.0) g/dl Hct 40.4 (37.0-47.0) % MCV 98.1 (80.0-100.0) fL MCH 32.3 (25.0-34.0) pg MCHC 32.9 (32.0-36.0) g/dL RDW Std Deviation 50.0 H (36.4-46.3) fL RDW Coeff of Connie 14.1 (11.5-14.5) % Plt Count 219 (130-400) K/uL MPV 10.4 (9.4-12.4) fL Immature Gran % (Auto) 0.7 % Neut % (Auto) 71.3 % Lymph % (Auto) 14.3 % Butts % (Auto) 10.0 % Eos % (Auto) 2.8 % Baso % (Auto) 0.9 % Neut # (Auto) 5.86 (1.40-6.50) K/uL Lymph # (Auto) 1.17 L (1.20-3.40) K/uL Butts # (Auto) 0.82 H (0.11-0.59) K/uL Eos # (Auto) 0.23 (0.00-0.50) K/uL Baso # (Auto) 0.07 (0.00-0.20) K/uL Immature Gran # (Auto) 0.06 (0.01-0.20) K/uL PT 10.6 (9.0-12.0) Seconds INR 1.0 (0.9-1.1) Sodium TNP Potassium TNP 3.7 Chloride 105 (98-107) mmol/L Carbon Dioxide 23 (21-32) mmol/L Anion Gap TNP BUN 16 (6-23) mg/dl Creatinine 0.81 (0.6-1.2) mg/dl Est Cr Clr Drug Dosing 66.4 ml/min Est GFR ( Amer) 81.8 ml/min Est GFR (Non-Af Amer) 70.5 ml/min BUN/Creatinine Ratio 19.8 (10-20) Glucose 176 H (70-99(Fasting)) mg/dl Calcium 8.7 (8.6-10.3) mg/dl Phosphorus 4.1 (2.5-4.9) mg/dl Magnesium TNP 1.5 L Total Bilirubin 1.1 H (0.2-1.0) mg/dl AST TNP 17 ALT 13 (7-52) U/L Alkaline Phosphatase 68 (34-104) U/L Troponin I High Sens 9.6 (0-14) pg/ml Total Protein 7.4 (6.0-8.3) gm/dl Albumin 3.5 (3.4-5.0) gm/dl Globulin 3.9 (2.5-4.0) gm/dl Albumin/Globulin Ratio 0.9 (0.9-2) Lipase 9 L (11-82) U/L TSH 2.525 (0.300-4.500) uIu/ml Urine Color Urine Appearance (Clear) Urine pH (4.5-7.5) Ur Specific [place] (1.000-1.030) Urine Protein (Negative) Urine Glucose (UA) (Negative) Urine Ketones (Negative) Urine Blood (Negative) Urine Nitrite (Negative) Urine Bilirubin (Negative) Urine Urobilinogen (Negative) Ur Leukocyte Esterase (Negative) Adenovirus (PCR) Not Detected (NotDetected) B. pertussis DNA (PCR) Not Detected (NotDetected) B.parapertussis DNA PCR Not Detected (NotDetected) Lyme Disease Screen Negative (Negative) C. pneumoniae DNA (PCR) Not Detected (NotDetected) Coronavirus OC43 (PCR) Not Detected (NotDetected) Coronavirus HKU1 (PCR) Not Detected (NotDetected) Coronavirus 229E (PCR) Not Detected (NotDetected) SARS-CoV-2 (PCR) Not Detected (NotDetected) Coronavirus NL63 (PCR) Not Detected (NotDetected) Human Metapneumovir PCR Not Detected (NotDetected) Influenza Type A (PCR) Not Detected (NotDetected) Influenza Type B (PCR) Not Detected (NotDetected) M. pneumoniae (PCR) Not Detected (NotDetected) Parainfluenza 1 (PCR) Not Detected (NotDetected) Parainfluenza 2 (PCR) Not Detected (NotDetected) Parainfluenza 3 (PCR) Not Detected (NotDetected) Parainfluenza 4 (PCR) Not Detected (NotDetected) RSV (PCR) Not Detected (NotDetected) Entero/Rhino (PCR) Not Detected (NotDetected) 07/11/24 Range/Units 10:33 WBC (4.8-10.8) K/ul RBC (4.20-5.40) M/uL Hgb (12.0-16.0) g/dl Hct (37.0-47.0) % MCV (80.0-100.0) fL MCH (25.0-34.0) pg MCHC (32.0-36.0) g/dL RDW Std Deviation (36.4-46.3) fL RDW Coeff of Connie (11.5-14.5) % Plt Count (130-400) K/uL MPV (9.4-12.4) fL Immature Gran % (Auto) % Neut % (Auto) % Lymph % (Auto) % Butts % (Auto) % Eos % (Auto) % Baso % (Auto) % Neut # (Auto) (1.40-6.50) K/uL Lymph # (Auto) (1.20-3.40) K/uL Butts # (Auto) (0.11-0.59) K/uL Eos # (Auto) (0.00-0.50) K/uL Baso # (Auto) (0.00-0.20) K/uL Immature Gran # (Auto) (0.01-0.20) K/uL PT (9.0-12.0) Seconds INR (0.9-1.1) Sodium Potassium Chloride (98-107) mmol/L Carbon Dioxide (21-32) mmol/L Anion Gap BUN (6-23) mg/dl Creatinine (0.6-1.2) mg/dl Est Cr Clr Drug Dosing ml/min Est GFR ( Amer) ml/min Est GFR (Non-Af Amer) ml/min BUN/Creatinine Ratio (10-20) Glucose (70-99(Fasting)) mg/dl Calcium (8.6-10.3) mg/dl Phosphorus (2.5-4.9) mg/dl Magnesium Total Bilirubin (0.2-1.0) mg/dl AST ALT (7-52) U/L Alkaline Phosphatase (34-104) U/L Troponin I High Sens (0-14) pg/ml Total Protein (6.0-8.3) gm/dl Albumin (3.4-5.0) gm/dl Globulin (2.5-4.0) gm/dl Albumin/Globulin Ratio (0.9-2) Lipase (11-82) U/L TSH (0.300-4.500) uIu/ml Urine Color Yellow Urine Appearance Clear (Clear) Urine pH 7.0 (4.5-7.5) Ur Specific [place] 1.014 (1.000-1.030) Urine Protein Negative (Negative) Urine Glucose (UA) Negative (Negative) Urine Ketones Negative (Negative) Urine Blood Negative (Negative) Urine Nitrite Negative (Negative) Urine Bilirubin Negative (Negative) Urine Urobilinogen Negative (Negative) Ur Leukocyte Esterase Negative (Negative) Adenovirus (PCR) (NotDetected) B. pertussis DNA (PCR) (NotDetected) B.parapertussis DNA PCR (NotDetected) Lyme Disease Screen (Negative) C. pneumoniae DNA (PCR) (NotDetected) Coronavirus OC43 (PCR) (NotDetected) Coronavirus HKU1 (PCR) (NotDetected) Coronavirus 229E (PCR) (NotDetected) SARS-CoV-2 (PCR) (NotDetected) Coronavirus NL63 (PCR) (NotDetected) Human Metapneumovir PCR (NotDetected) Influenza Type A (PCR) (NotDetected) Influenza Type B (PCR) (NotDetected) M. pneumoniae (PCR) (NotDetected) Parainfluenza 1 (PCR) (NotDetected) Parainfluenza 2 (PCR) (NotDetected) Parainfluenza 3 (PCR) (NotDetected) Parainfluenza 4 (PCR) (NotDetected) RSV (PCR) (NotDetected) Entero/Rhino (PCR) (NotDetected) Administered Medications Lactated Ringer's (Lr) 1,000 mls @ 80 mls/hr IV .[id number] JESUS Stop: 07/12/24 02:29 Last Infusion: 07/11/24 21:30 Dose: 80 mls/hr Documented By: Infusion: 07/11/24 20:31 Dose: 0 mls/hr Documented By: Admin: 07/11/24 14:25 Dose: 80 mls/hr Documented By: CEF Methenamine Hippurate (Methenamine Hippurate 1 Gm Tab) 1 gm PO JESUS Stop: 08/10/24 20:59 Last Admin: 07/11/24 20:25 Dose: 1 gm Documented By: AES Nitrofurantoin Macrocrystals (Nitrofurantoin Macrocrystal 50 Mg Cap) 50 mg PO [facility] Stop: 08/10/24 20:59 Last Admin: 07/11/24 20:25 Dose: 50 mg Documented By: AES Sacubitril/Valsartan (Valsartan/Sacubitril 26/24mg Tab) 1 tab PO BID JESUS Stop: 08/10/24 20:59 Last Admin: 07/11/24 20:26 Dose: 1 tab Documented By: AES Discontinued Medications Aspirin (Aspirin 81 Mg Ectab) 81 mg PO NOW ONE Stop: 07/11/24 13:49 Last Admin: 07/11/24 14:31 Dose: 81 mg Documented By: CEF Sodium Chloride (Nss) 1,000 mls @ 999 mls/hr IV .Q1H1M ONE Stop: 07/11/24 09:40 Last Infusion: 07/11/24 09:50 Dose: Infused Documented By: Admin: 07/11/24 08:49 Dose: 999 mls/hr Documented By: CEF Magnesium Sulfate/Dextrose (Magnesium Sulfate / D5w) 1 gm in 100 mls @ 100 mls/hr IV Q1H JESUS Stop: 07/11/24 14:08 Last Infusion: 07/11/24 14:25 Dose: Infused Documented By: Admin: 07/11/24 13:24 Dose: 100 mls/hr Documented By: Infusion: 07/11/24 13:23 Dose: Infused Documented By: Admin: 07/11/24 12:17 Dose: 100 mls/hr Documented By: KING Ioversol (Optiray 320 125ml) 120 ml IV ONCE ONE Stop: 07/11/24 10:08 Last Admin: 07/11/24 10:08 Dose: 120 ml Documented By: CELIO Imaging Data Radiologist's Impression: Chest X-Ray 07/11/24 08:40 SINGLE VIEW CHEST CLINICAL HISTORY: Atypical chest pain FINDINGS: An AP, portable, upright chest radiograph is compared to study dated 06/06/2024. The cardiomediastinal silhouette is unremarkable noting atherosclerotic calcification of the thoracic aorta. Chronic interstitial thickening is similar to previous. There is bibasilar scarring/atelectasis. No airspace consolidation or large pleural effusion is identified. No pneumothorax is seen. The skeletal structures are osteopenic. The bony thorax is grossly intact. Arthritic change is seen in the shoulders. IMPRESSION: No acute cardiopulmonary abnormality. ACT 112: Negative or not required by law. Electronically signed by: Boo Chong M.D. 07/11/2024 9:17 AM Chest CTA 07/11/24 09:20 CT ANGIOGRAPHY OF THE CHEST DISSECTION PROTOCOL CLINICAL HISTORY: , syncope, HTN, back pain COMPARISON STUDY: Chest radiograph performed earlier today. TECHNIQUE: Before and following the IV administration of 120 mL of Optiray, helical axial images of the chest were obtained. Maximal intensity projections and sagittal and coronal reformats were viewed on an independent 3D workstation. IV contrast was administered without complication. Automated exposure control was utilized for the study. A dose lowering technique was utilized adhering to the principles of ALARA. FINDINGS: There is moderate aortic valvular calcification. Caliber of the thoracic aorta is normal. There is no intramural hematoma or thoracic aortic dissection. There is mild cardiomegaly and moderate coronary artery calcification. There is no pericardial effusion. No central pulmonary emboli are identified. There is no pneumothorax or pleural effusion. No consolidation to suggest pneumonia. Multiple small solid noncalcified pulmonary nodules measure up to 7 mm. The largest is within the right lower lobe on image 155 of 249. Visualized portions of the upper abdomen are unremarkable. The gallbladder is surgically absent. IMPRESSION: 1. No thoracic aortic dissection. 2. No acute intrathoracic findings. 3. Moderate aortic valvular calcification moderate coronary artery calcification. 4. Multiple pulmonary nodules measuring up to [address] in 6 months to ensure stability is recommended. ACT 112: Negative or not required by law. Electronically signed by: Braydon Patten M.D. 07/11/2024 10:[address] 07/11/24 09:20 CT SCAN OF THE BRAIN WITHOUT IV CONTRAST CLINICAL HISTORY: Syncope. Hypertension. COMPARISON STUDY: CT of the brain dated 06/06/2024. TECHNIQUE: Unenhanced axial CT scan of the brain is performed from the vertex to the skull base. A dose lowering technique was utilized adhering to the principles of ALARA. FINDINGS: Brain parenchyma: There is age-related involutional change noting mild subcortical and periventricular microangiopathic disease. There is no hemorrhage, mass effect, or evidence of acute territorial ischemia by CT criteria. A chronic lacunar infarct is noted in the right thalamus/internal capsule. Oh-white matter differentiation is preserved. No extra-axial fluid collection is seen. Ventricles, sulci, cisterns: Prominent secondary to involutional change. Intracranial vasculature: There is atherosclerotic calcification of the cavernous carotid and vertebral arteries. Calvarium: Unremarkable. Sinuses and mastoids: The visualized paranasal sinuses are clear. There is trace right mastoid effusion. The left mastoid air cells are well pneumatized. Orbits: The bony orbits are grossly intact. There is a right ocular lens implant. IMPRESSION: There is no hemorrhage, mass effect, or evidence of acute territorial ischemia by CT criteria. ACT 112: Negative or not required by law. Electronically signed by: Boo Chong M.D. 07/11/2024 10:23 AM Head CTA 07/11/24 09:20 CT ANGIOGRAM OF THE BRAIN CLINICAL HISTORY: Syncope COMPARISON STUDY: CT angiogram of the brain dated 06/06/2024. TECHNIQUE: Following the IV administration of 120 cc of Optiray 320, CT angiogram of the brain was performed from the skull base to the vertex. Images are reviewed in the axial, sagittal, and coronal planes. 3-D MIPS images are created and assessed. IV contrast was administered without complication. A dose lowering technique was utilized adhering to the principles of ALARA. CT DOSE: 2436.81 mGy.cm FINDINGS: Brain parenchyma: There is age related involutional change noting mild subcortical and periventricular microangiopathic disease. There is no evidence of hemorrhage, mass effect, or acute territorial ischemia noting angiographic phase technique. There is no evidence of enhancing mass lesion on the angiogram phase images. No extra-axial fluid collection is seen. Oh-white matter differentiation is preserved. Ventricles, sulci, and cisterns: Prominent secondary to involutional change. CT angiogram of the brain: There is atherosclerotic calcification of the cavernous carotid and vertebral arteries. The internal carotid arteries are widely patent, as are the anterior and middle cerebral arteries. The right A1 segment is atretic. The vertebrobasilar system and posterior cerebral arteries are widely patent. The left vertebral artery is dominant. The right vertebral artery terminates as the PICA. There is no aneurysm, high-grade stenosis, or focal vessel cutoff identified throughout the intracranial circulation. Dural sinuses: Clear as visualized. Orbits: The bony orbits are intact. The orbital contents are normal as visualized noting a right ocular lens implant. Sinuses and mastoids: The paranasal sinuses are clear. The mastoid air cells are well pneumatized. Calvarium: Unremarkable. IMPRESSION: 1. There is no evidence of hemorrhage, mass effect, or acute territorial ischemia noting angiographic phase technique. 2. Unremarkable CT angiogram of the brain. ACT 112: Negative or not required by law. Electronically signed by: Boo Chong M.D. 07/11/2024 10:34 AM Neck CTA 07/11/24 09:20 CT ANGIOGRAPHY OF THE NECK WITH CONTRAST CLINICAL HISTORY: , syncope, HTN, back pain COMPARISON STUDY: CTA of the neck June 06, 2024. Technique: CT angiography of the carotid and vertebral arteries was obtained using Optiray and 3D reconstruction on an independent workstation. NASCET criteria was utilized. Automated exposure control was utilized for the study. A dose lowering technique was utilized adhering to the principles of ALARA. Findings: There is no cervical lymphadenopathy. No cervical spine fractures are identified. The bilateral common carotid, cervical internal carotid and vertebral arteries are patent. There is mild plaque within the proximal bilateral internal carotid arteries without stenosis. The left vertebral artery is dominant and patent. The right vertebral artery ends PICA. There is no aneurysm or dissection within the neck. IMPRESSION: No stenosis or dissection within the major vessels of the neck. ACT 112: Negative or not required by law. Electronically signed by: Braydon Patten M.D. 07/11/2024 10:36 AM Discharge Plan Visit Data Chief Complaint: Syncope (Near Syncope) Stated Complaint: SYNCOPE ED Provider: Pk oHllins Discharge Problem: Unresponsive episode, Recurrent syncope, Aortic valve stenosis with insufficiency, Hypomagnesemia Patient Disposition: Admitted As Inpatient Discharge Instructions Interventions: ED Discharge Assessment Last Done: 07/11/24 15:08 Discharge Problem: Aortic valve stenosis with insufficiency Qualifiers: Cardiac valve disease etiology: etiology unspecified Qualified Code(s): I35.2 - Nonrheumatic aortic (valve) stenosis with insufficiency
[2024-07-11] MEDS: SODIUM CHLORIDE 0.9% 1,000 ML IV ONE (08:49)
[2024-07-11 09:09] LABS: Basophils # (auto) 0.07 K/uL (0.00-0.20); Basophils % (auto) 0.9 %; Eosinophils # (auto) 0.23 K/uL (0.00-0.50); Eosinophils % (auto) 2.8 %; Hematocrit (blood only) 40.4 % (37.0-47.0); Hemoglobin 13.3 g/dl (12.0-16.0); Immature Granulocytes # (auto) 0.06 K/uL (0.01-0.20); Immature Granulocytes % (auto) 0.7 %; Lymphocytes # (auto) 1.17 K/uL (1.20-3.40); Lymphocytes % (auto) 14.3 %; Mean Corpuscular Hemoglobin 32.3 pg (25.0-34.0); Mean Corpuscular Hgb Conc 32.9 g/dL (32.0-36.0); Mean Corpuscular Volume 98.1 fL (80.0-100.0); Mean Platelet Volume 10.4 fL (9.4-12.4); Monocytes # (auto) 0.82 K/uL (0.11-0.59); Neutrophils # (auto) 5.86 K/uL (1.40-6.50); Neutrophils % (auto) 71.3 %; Platelet Count 219 K/uL (130-400); RDW Coefficient of Variation 14.1 % (11.5-14.5); Red Blood Count 4.12 M/uL (4.20-5.40); White Blood Count 8.21 K/ul (4.8-10.8)
[2024-07-11 09:18] LABS: Prothrombin Time 10.6 Seconds (9.0-12.0)
--- NOTE | 2024-07-11 09:19 | XRay Report ---
SINGLE VIEW CHEST CLINICAL HISTORY: Atypical chest pain FINDINGS: An AP, portable, upright chest radiograph is compared to study dated 06/06/2024. The cardiom ediastinal silhouette is unremarkable noting atherosclerotic calcification of the thoracic aorta. Chr onic interstitial thickening is similar to previous. There is bibasilar scarring/atelectasis. No airs pace consolidation or large pleural effusion is identified. No pneumothorax is seen. The skeletal str uctures are osteopenic. The bony thorax is grossly intact. Arthritic change is seen in the shoulders. IMPRESSION: No acute cardiopulmonary abnormality. ACT 112: Negative or not required by law. Electronically signed by: Boo Chong M.D. 07/11/2024 9:17 AM
[2024-07-11 09:40] LABS: Alanine Aminotransferase 13 U/L (7-52); Albumin Globulin Ratio 0.9 (0.9-2); Albumin Level 3.5 gm/dl (3.4-5.0); Alkaline Phosphatase 68 U/L (34-104); BUN Creatinine Ratio 19.8 (10-20); Bilirubin,Total 1.1 mg/dl (0.2-1.0); Blood Urea Nitrogen 16 mg/dl (6-23); Calcium 8.7 mg/dl (8.6-10.3); Carbon Dioxide 23 mmol/L (21-32); Chloride 105 mmol/L (98-107); Creatinine Clr Calc Pharmacy 66.4 ml/min; Est GFR (African American) 81.8 ml/min; Est GFR (Non-African American) 70.5 ml/min; Globulin 3.9 gm/dl (2.5-4.0); Glucose 176 mg/dl (70-99(Fasting)); Lipase 9 U/L (11-82); Phosphorus 4.1 mg/dl (2.5-4.9); Total Protein 7.4 gm/dl (6.0-8.3); Troponin I High Sensitivity 9.6 pg/ml (0-14)
[2024-07-11 09:43] LABS: Thyroid Stimulating Hormone 2.525 uIu/ml (0.300-4.500)
[2024-07-11] MEDS: OPTIRAY 320 125ml IV ONE (10:08)
--- NOTE | 2024-07-11 10:25 | CT Scan Report ---
CT SCAN OF THE BRAIN WITHOUT IV CONTRAST CLINICAL HISTORY: Syncope. Hypertension. COMPARISON STUDY: CT of the brain dated 06/06/2024. TECHNIQUE: Unenhanced axial CT scan of the brain is performed from the vertex to the skull base. A do se lowering technique was utilized adhering to the principles of ALARA. FINDINGS: Brain parenchyma: There is age-related involutional change noting mild subcortical and periventricula r microangiopathic disease. There is no hemorrhage, mass effect, or evidence of acute territorial isc hemia by CT criteria. A chronic lacunar infarct is noted in the right thalamus/internal capsule. Oh -white matter differentiation is preserved. No extra-axial fluid collection is seen. Ventricles, sulci, cisterns: Prominent secondary to involutional change. Intracranial vasculature: There is atherosclerotic calcification of the cavernous carotid and vertebr al arteries. Calvarium: Unremarkable. Sinuses and mastoids: The visualized paranasal sinuses are clear. There is trace right mastoid effusi on. The left mastoid air cells are well pneumatized. Orbits: The bony orbits are grossly intact. There is a right ocular lens implant. IMPRESSION: There is no hemorrhage, mass effect, or evidence of acute territorial ischemia by CT michael hanson. ACT 112: Negative or not required by law. Electronically signed by: Boo Chong M.D. 07/11/2024 10:23 AM
--- NOTE | 2024-07-11 10:31 | CT Scan Report ---
CT ANGIOGRAPHY OF THE CHEST DISSECTION PROTOCOL CLINICAL HISTORY: , syncope, HTN, back pain COMPARISON STUDY: Chest radiograph performed earlier today. TECHNIQUE: Before and following the IV administration of 120 mL of Optiray, helical axial images of t he chest were obtained. Maximal intensity projections and sagittal and coronal reformats were viewed on an independent 3D workstation. IV contrast was administered without complication. Automated exp osure control was utilized for the study. A dose lowering technique was utilized adhering to the brittany Tomlinson. FINDINGS: There is moderate aortic valvular calcification. Caliber of the thoracic aorta is normal. There is no intramural hematoma or thoracic aortic dissection. There is mild cardiomegaly and moderat e coronary artery calcification. There is no pericardial effusion. No central pulmonary emboli are id entified. There is no pneumothorax or pleural effusion. No consolidation to suggest pneumonia. Multip le small solid noncalcified pulmonary nodules measure up to 7 mm. The largest is within the right low er lobe on image 155 of 249. Visualized portions of the upper abdomen are unremarkable. The gallbladd er is surgically absent. IMPRESSION: 1. No thoracic aortic dissection. 2. No acute intrathoracic findings. 3. Moderate aortic valvular calcification moderate coronary artery calcification. 4. Multiple pulmonary nodules measuring up to [address] in 6 months to ensure stability is rec ommended. ACT 112: Negative or not required by law. Electronically signed by: Braydon Patten M.D. 07/11/2024 10:29 AM
--- NOTE | 2024-07-11 10:35 | CT Scan Report ---
CT ANGIOGRAM OF THE BRAIN CLINICAL HISTORY: Syncope COMPARISON STUDY: CT angiogram of the brain dated 06/06/2024. TECHNIQUE: Following the IV administration of 120 cc of Optiray 320, CT angiogram of the brain was pe rformed from the skull base to the vertex. Images are reviewed in the axial, sagittal, and coronal pl anes. 3-D MIPS images are created and assessed. IV contrast was administered without complication. A dose lowering technique was utilized adhering to the principles of ALARA. CT DOSE: 2436.81 mGy.cm FINDINGS: Brain parenchyma: There is age related involutional change noting mild subcortical and periventricula r microangiopathic disease. There is no evidence of hemorrhage, mass effect, or acute territorial isc hemia noting angiographic phase technique. There is no evidence of enhancing mass lesion on the angio gram phase images. No extra-axial fluid collection is seen. Oh-white matter differentiation is pres erved. Ventricles, sulci, and cisterns: Prominent secondary to involutional change. CT angiogram of the brain: There is atherosclerotic calcification of the cavernous carotid and verteb ral arteries. The internal carotid arteries are widely patent, as are the anterior and middle cerebra l arteries. The right A1 segment is atretic. The vertebrobasilar system and posterior cerebral arteri es are widely patent. The left vertebral artery is dominant. The right vertebral artery terminates as the PICA. There is no aneurysm, high-grade stenosis, or focal vessel cutoff identified throughout th e intracranial circulation. Dural sinuses: Clear as visualized. Orbits: The bony orbits are intact. The orbital contents are normal as visualized noting a right ocul ar lens implant. Sinuses and mastoids: The paranasal sinuses are clear. The mastoid air cells are well pneumatized. Calvarium: Unremarkable. IMPRESSION: 1. There is no evidence of hemorrhage, mass effect, or acute territorial ischemia noting angiographic phase technique. 2. Unremarkable CT angiogram of the brain. ACT 112: Negative or not required by law. Electronically signed by: Boo Chong M.D. 07/11/2024 10:34 AM
[2024-07-11 10:36] LABS: Adenovirus PCR Not Detected (NotDetected); Bordetella parapertussis PCR Not Detected (NotDetected); Bordetella pertussis PCR Not Detected (NotDetected); Chlamydia pneumoniae PCR Not Detected (NotDetected); Coronavirus 229E PCR Not Detected (NotDetected); Coronavirus CoV-2 (COVID19)PCR Not Detected (NotDetected); Coronavirus HKU1 PCR Not Detected (NotDetected); Coronavirus NL63 PCR Not Detected (NotDetected); Coronavirus OC43PCR Not Detected (NotDetected); Human Metapneumovirus PCR Not Detected (NotDetected); Influenza A PCR Not Detected (NotDetected); Influenza B PCR Not Detected (NotDetected); Mycoplasma pneumoniae PCR Not Detected (NotDetected); Parainfluenza Virus 1 PCR Not Detected (NotDetected); Parainfluenza Virus 2 PCR Not Detected (NotDetected); Parainfluenza Virus 3 PCR Not Detected (NotDetected); Parainfluenza Virus 4 PCR Not Detected (NotDetected); Respiratory Syncytial VirusPCR Not Detected (NotDetected); Rhinovirus/Enterovirus PCR Not Detected (NotDetected)
--- NOTE | 2024-07-11 10:37 | CT Scan Report ---
CT ANGIOGRAPHY OF THE NECK WITH CONTRAST CLINICAL HISTORY: , syncope, HTN, back pain COMPARISON STUDY: CTA of the neck June 06, 2024. Technique: CT angiography of the carotid and vertebral arteries was obtained using Optiray and 3D rec onstruction on an independent workstation. NASCET criteria was utilized. Automated exposure control was utilized for the study. A dose lowering technique was utilized adhering to the principles of ALA RA. Findings: There is no cervical lymphadenopathy. No cervical spine fractures are identified. The bilat eral common carotid, cervical internal carotid and vertebral arteries are patent. There is mild plaqu e within the proximal bilateral internal carotid arteries without stenosis. The left vertebral artery is dominant and patent. The right vertebral artery ends PICA. There is no aneurysm or dissection wit hin the neck. IMPRESSION: No stenosis or dissection within the major vessels of the neck. ACT 112: Negative or not required by law. Electronically signed by: Braydon Patten M.D. 07/11/2024 10:36 AM
[2024-07-11 10:42] LABS: Magnesium 1.5 mg/dl (1.7-2.4); Potassium 3.7 mmol/L (3.5-5.1)
[2024-07-11 10:47] LABS: Appearance Urine Clear (Clear); Bilirubin Urine Negative (Negative); Blood Urine Negative (Negative); Color Urine Yellow; Glucose Urine UA Negative (Negative); Ketones Urine Negative (Negative); Leukocyte Esterase Urine Negative (Negative); Nitrite Urine Negative (Negative); Protein Urine Negative (Negative); Specific Gravity Urine 1.014 (1.000-1.030); Urobilinogen Urine Negative (Negative)
[2024-07-11] MEDS: MAGNESIUM SULFATE / D5W 1 GM/100 ML BAG IV SCH (12:17)
--- NOTE | 2024-07-11 13:09 | History & Physical Report ---
Date of Service July 11, 2024 Assessment & Plan (1) Unresponsive episode: Plan: Unresponsive episode on the morning of 07/11; similar to prior episodes Suspect this is secondary to a combination of dehydration and aortic stenosis No strokelike activity or seizure-like activity witnessed Initial head imaging without abnormalities Chest CTA revealed moderate aortic valvular calcification; no acute abnormalities Last echocardiogram on 01/26/2024 revealed LVEF at 50-55% with valvular moderate aortic stenosis Repeat echocardiogram ordered, pending Orthostatic vitals ordered, pending Gentle IVF resuscitation with LR at 80mL/hr x 1 L Continuous telemetry monitoring A.m. CBC, BMP, mag (2) Hypomagnesemia: Plan: Magnesium 1.5 on arrival Magnesium sulfate 1 g IV x 2 Recheck a.m. mag and continue daily p.o. supplementation (3) Diabetes mellitus type 2, diet-controlled: Plan: Last A1c at 6.7% on 04/30/2024 Patient is not on home medications for diabetes Will defer starting her on insulin at this time T2DM diet BSG ACHS Adjust regimen as needed (4) Mitral regurgitation: (5) Aortic valve stenosis with insufficiency: (6) Recurrent syncope: (7) Cardiomyopathy: (8) Dehydration: Plan [facility] Full code Heart healthy, T2DM diet VTE PPx: Lovenox 40 mg SQ q24h History of Present Illness Chief Complaint: Unresponsive episode Primary Care Provider: Mary Lam MD Sue is a 78-year-old female with PMH of osteoarthritis, SNHL, T2DM, cardiomyopathy, mitral regurgitation, and aortic valve stenosis. She presented on 07/11 after an unresponsive episode while sitting eating breakfast this morning. Patient reports she woke up and went to the bathroom as normal. She then got dressed and used her electric stair chair to get down the stairs. When she stood from the stair chair, she felt lightheaded like she was going to pass out. She sat down on her breakfast table, and when her daughter came to see her she was unresponsive. Both daughter and were yelling at her, but she was not responding. says she turned "oh" and had a blank stare. She denies loss of consciousness, but believes she lost consciousness. Eyes remained open. No strokelike activity such as slurred speech, facial droop, or unilateral deficits. No seizure-like activity such as jerking, tongue biting, loss of urinary continence. Patient denies history of CVA or seizures. She has had similar episodes of this, with the last one being in early June. Patient reports she knew her family was talking to her, but she was unable to respond. No recent falls or injuries to the head or neck. No sick contacts. Patient did not take her regular morning medications today; no recent change in medications. She manages her own medicine at home. Patient believes he is drinking enough water, denies any recent changes in dietary habits. She denies smoking, tobacco use, recent alcohol use. Patient is hypertensive at 166/85 at time of admission; vitals otherwise stable. ED course: Magnesium sulfate 1 g IV NSS 1000 mL IV ROS: Patient endorses lightheadedness, TRAMMELL yesterday (resolved), and episode of unresponsiveness/pallor. Patient denies fever, chills, night-sweats, joint pain, dizziness, changes in vision, chest pain, chest palpitations, SOB, pleuritic CP, cough, abdominal pain, N/V/D, changes in urinary/bowel habits, burning with urination, blood in the urine/stool, or numbness/tingling in the arms or legs. Allergies Allergy/AdvReac Type Severity Reaction Status Date / Time animal dander Allergy coughing, Verified 06/06/24 10:57 sneezing No Known Drug Allergies Allergy Verified 04/24/24 15:04 Home Medications Medication Instructions Recorded Confirmed Type methotrexate sodium 2.5 mg tablet 20 mg PO WEEKLY 09/22/20 07/11/24 History metoprolol succinate 25 mg 25 mg PO DAILY #90 tabs 10/31/23 07/11/24 Rx tablet,extended release 24 hr potassium chloride 10 mEq 10 meq PO DAILY 10/31/23 07/11/24 History tablet,extended release sacubitril 24 mg-valsartan 26 mg 1 tab PO BID #180 tabs 01/04/24 07/11/24 Rx tablet (Entresto) nitrofurantoin macrocrystal 50 mg 50 mg PO HS #90 caps 04/23/24 07/11/24 Rx capsule aspirin 81 mg tablet,delayed 81 mg PO DAILY 06/06/24 07/11/24 History release calcium carbonate 500 mg PO DAILY 06/06/24 07/11/24 History methenamine hippurate 1 gram 1 g PO HS 06/06/24 07/11/24 History tablet (Hiprex) multivitamin 1 tab PO DAILY 06/06/24 07/11/24 History magnesium 1 tab PO DIRECTED 07/11/24 07/11/24 History Past Med/Surg History Problem List (Updated 07/11/24 @ 19:31 by Pk Hollins MD) Dehydration Hypomagnesemia (Acute) Recurrent syncope (Acute) Unresponsive episode (Acute) Mitral regurgitation Aortic valve stenosis with insufficiency (Acute) Lightheadedness Frequent PVCs Cardiomyopathy Diabetes mellitus type 2, diet-controlled Frequent urinary tract infections ETD (eustachian tube dysfunction) Sensorineural hearing loss (SNHL) of both ears Hyponatremia (Chronic) Bilateral hearing loss (Chronic) History of squamous cell carcinoma in situ of skin Osteoarthritis, knee (Chronic 12/24/14) Medical History (Updated 07/11/24 @ 19:31 by Pk Hollins MD) Aortic valve sclerosis Malignant neoplasm of uterus Rheumatoid arthritis Bilateral otitis media with spontaneous rupture of eardrum HTN (hypertension) Surgical History History of hernia repair S/P knee replacement S/P hysterectomy S/P cholecystectomy Family History Grandfather Stroke Aunt Cancer Other Asthma No family history of bleeding disorder Denies family history of Ovarian cancer Prostate cancer Heart disease Myocardial infarction Breast cancer Colorectal cancer Hypertension Social History Smoking Status: Never smoker Second Hand Exposure: No; Do You Dip or Chew Tobacco: No; Hx Alcohol Use: No Hx Substance Use: No Preferred Language: Togolese Communication Ability: Effective Visual Impairment: No Limitations Hearing Ability: Use of Hearing Aid Beet Topper Required: No Beliefs That Will Affect Care: None marital status: Current Living Situation: Spouse Current Living Situation Comment: At home w/ current occupational status: retired 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 How many Children do You have: 6 Other Information That Helps Us Care for You: No Feels Safe at Home: Yes Childhood Exposure to Second-Hand Smoke: Yes Diet: regular Dental Care, Regularly: Yes Physical Activity Frequency: Daily Seatbelt Use: always Sunscreen Use: Yes Assistive Devices: Walker Review of Systems Review of Systems: See HPI above Physical Exam Physical Exam: General: no acute distress; pleasant affect; non-toxic appearing; well- nourished; cooperative; SpO2 97% on RA HEENT: normocephalic, atraumatic; no scleral icterus; PERRLA; vision and hearing grossly intact; patient demonstrates ability to smile and frown without unilateral deficits Neck: supple; no lymphadenopathy; trachea midline Skin: warm, dry without signs of tenting; no cyanosis; no rashes, bruising, lesions, or erythema noted CV: chest wall NTP; RRR; S1/S2 normal; 4/6 systolic ejection murmur auscultated at the second ICS MCL; pulses intact and symmetric at radial, DP, and PT Lungs: no acute respiratory distress; symmetrical chest wall expansion; clear breath sounds across all lung whitaker w/o adventitious sounds; no wheezing ABD: Soft, NTP; BS present; no rebound/guarding; no distention MSK: no tics or fasciculations; no edema noted in the LEs b/l, nonerythematous; 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; patient demonstrates ability to wiggle toes bilaterally Neuro: A&Ox3; normal mood and affect; fluent speech; no facial droop; no focal deficits; sensation grossly intact in the LEs b/l Results & Data Results & Data Vital Signs (Past 12 Hours) Vital Signs Temp Pulse Pulse Resp BP BP Pulse Ox 07/11/24 12:52 68 07/11/24 11:30 54 L 14 166/85 H 97 07/11/24 11:00 21 159/85 H 96 07/11/24 09:30 58 L 19 173/76 H 97 07/11/24 09:19 36.6 C 89 22 205/70 H 95 07/11/24 09:15 36.6 C 89 22 205/70 H 95 07/11/24 09:15 89 22 95 07/11/24 09:00 70 26 H 178/125 H 95 07/11/24 08:49 69 07/11/24 08:45 92 H 17 205/70 H 97 O2 Del Method 07/11/24 12:52 07/11/24 11:30 Room Air 07/11/24 11:00 Room Air 07/11/24 09:30 Room Air 07/11/24 09:19 Room Air 07/11/24 09:15 Room Air 07/11/24 09:15 Room Air 07/11/24 09:00 07/11/24 08:49 07/11/24 08:45 Room Air Laboratory Results Abnormal lab results 07/11/24 07/11/24 Range/Units 08:43 10:01 RBC 4.12 L (4.20-5.40) M/uL RDW Std Deviation 50.0 H (36.4-46.3) fL Lymph # (Auto) 1.17 L (1.20-3.40) K/uL [place] # (Auto) 0.82 H (0.11-0.59) K/uL Glucose 176 H (70-99(Fasting)) mg/dl Magnesium 1.5 L (1.7-2.4) mg/dl Total Bilirubin 1.1 H (0.2-1.0) mg/dl Lipase 9 L (11-82) U/L Diagnostic Findings Chest X-Ray 07/11/24 08:40 SINGLE VIEW CHEST CLINICAL HISTORY: Atypical chest pain FINDINGS: An AP, portable, upright chest radiograph is compared to study dated 06/06/2024. The cardiomediastinal silhouette is unremarkable noting atherosclerotic calcification of the thoracic aorta. Chronic interstitial thickening is similar to previous. There is bibasilar scarring/atelectasis. No airspace consolidation or large pleural effusion is identified. No pneumothorax is seen. The skeletal structures are osteopenic. The bony thorax is grossly int act. Arthritic change is seen in the shoulders. IMPRESSION: No acute cardiopulmonary abnormality. ACT 112: Negative or not required by law. Electronically signed by: Boo Chong M.D. 07/11/2024 9:17 AM Chest CTA 07/11/24 09:20 CT ANGIOGRAPHY OF THE CHEST DISSECTION PROTOCOL CLINICAL HISTORY: , syncope, HTN, back pain COMPARISON STUDY: Chest radiograph performed earlier today. TECHNIQUE: Before and following the IV administration of 120 mL of Optiray, helical axial images of the chest were obtained. Maximal intensity projections and sagittal and coronal reformats were viewed on an independent 3D workstation. IV contrast was administered without complication. Automated exposure control was utilized for the study. A dose lowering technique was utilized adhering to the principles of ALARA. FINDINGS: There is moderate aortic valvular calcification. Caliber of the thoracic aorta is normal. There is no intramural hematoma or thoracic aortic dissection. There is mild cardiomegaly and moderate coronary artery calcification. There is no pericardial effusion. No central pulmonary emboli are identified. There is no pneumothorax or pleural effusion. No consolidation to suggest pneumonia. Multiple small solid noncalcified pulmonary nodules measure up to 7 mm. The largest is within the right lower lobe on image 155 of 249. Visualized portions of the upper abdomen are unremarkable. The gallbladder is surgically absent. IMPRESSION: 1. No thoracic aortic dissection. 2. No acute intrathoracic findings. 3. Moderate aortic valvular calcification moderate coronary artery calcification. 4. Multiple pulmonary nodules measuring up to [address] in 6 months to ensure stability is recommended. ACT 112: Negative or not required by law. Electronically signed by: Braydon Patten M.D. 07/11/2024 10:[address] 07/11/24 09:20 CT SCAN OF THE BRAIN WITHOUT IV CONTRAST CLINICAL HISTORY: Syncope. Hypertension. COMPARISON STUDY: CT of the brain dated 06/06/2024. TECHNIQUE: Unenhanced axial CT scan of the brain is performed from the vertex to the skull base. A dose lowering technique was utilized adhering to the principles of ALARA. FINDINGS: Brain parenchyma: There is age-related involutional change noting mild subcortical and periventricular microangiopathic disease. There is no hemorrhage, mass effect, or evidence of acute territorial ischemia by CT criteria. A chronic lacunar infarct is noted in the right thalamus/internal capsule. Oh-white matter differentiation is preserved. No extra-axial fluid collection is seen. Ventricles, sulci, cisterns: Prominent secondary to involutional change. Intracranial vasculature: There is atherosclerotic calcification of the cavernous carotid and vertebral arteries. Calvarium: Unremarkable. Sinuses and mastoids: The visualized paranasal sinuses are clear. There is trace right mastoid effusion. The left mastoid air cells are well pneumatized. Orbits: The bony orbits are grossly intact. There is a right ocular lens implant. IMPRESSION: There is no hemorrhage, mass effect, or evidence of acute territorial ischemia by CT criteria. ACT 112: Negative or not required by law. Electronically signed by: Boo Chong M.D. 07/11/2024 10:23 AM Head CTA 07/11/24 09:20 CT ANGIOGRAM OF THE BRAIN CLINICAL HISTORY: Syncope COMPARISON STUDY: CT angiogram of the brain dated 06/06/2024. TECHNIQUE: Following the IV administration of 120 cc of Optiray 320, CT angiogram of the brain was performed from the skull base to the vertex. Images are reviewed in the axial, sagittal, and coronal planes. 3-D MIPS images are created and assessed. IV contrast was administered without complication. A dose lowering technique was utilized adhering to the principles of ALARA. CT DOSE: 2436.81 mGy.cm FINDINGS: Brain parenchyma: There is age related involutional change noting mild subcortical and periventricular microangiopathic disease. There is no evidence of hemorrhage, mass effect, or acute territorial ischemia noting angiographic phase technique. There is no evidence of enhancing mass lesion on the angiogram phase images. No extra-axial fluid collection is seen. Oh-white matter differentiation is preserved. Ventricles, sulci, and cisterns: Prominent secondary to involutional change. CT angiogram of the brain: There is atherosclerotic calcification of the cavernous carotid and vertebral arteries. The internal carotid arteries are widely patent, as are the anterior and middle cerebral arteries. The right A1 segment is atretic. The vertebrobasilar system and posterior cerebral arteries are widely patent. The left vertebral artery is dominant. The right vertebral artery terminates as the PICA. There is no aneurysm, high-grade stenosis, or focal vessel cutoff identified throughout the intracranial circulation. Dural sinuses: Clear as visualized. Orbits: The bony orbits are intact. The orbital contents are normal as visualized noting a right ocular lens implant. Sinuses and mastoids: The paranasal sinuses are clear. The mastoid air cells are well pneumatized. Calvarium: Unremarkable. IMPRESSION: 1. There is no evidence of hemorrhage, mass effect, or acute territorial ischemia noting angiographic phase technique. 2. Unremarkable CT angiogram of the brain. ACT 112: Negative or not required by law. Electronically signed by: Boo Chong M.D. 07/11/2024 10:34 AM Neck CTA 07/11/24 09:20 CT ANGIOGRAPHY OF THE NECK WITH CONTRAST CLINICAL HISTORY: , syncope, HTN, back pain COMPARISON STUDY: CTA of the neck June 06, 2024. Technique: CT angiography of the carotid and vertebral arteries was obtained using Optiray and 3D reconstruction on an independent workstation. NASCET criteria was utilized. Automated exposure control was utilized for the study. A dose lowering technique was utilized adhering to the principles of ALARA. Findings: There is no cervical lymphadenopathy. No cervical spine fractures are identified. The bilateral common carotid, cervical internal carotid and vertebral arteries are patent. There is mild plaque within the proximal bilateral internal carotid arteries without stenosis. The left vertebral artery is dominant and patent. The right vertebral artery ends PICA. There is no aneurysm or dissection within the neck. IMPRESSION: No stenosis or dissection within the major vessels of the neck. ACT 112: Negative or not required by law. Electronically signed by: Braydon Patten M.D. 07/11/2024 10:36 AM ECG Additional Comments: ECG revealed sinus rhythm with occasional PVCs at 99 bpm; QTc 426 Code Status & VTE Plan Code Status Full code VTE Prophylaxis Plan VTE Prophylaxis will be ordered: Yes Supervising Physician Co-Signing Physician Notes Patient seen and examined, chart reviewed, case discussed with Jose Alejandro Escobar PA-C and I agree with the assessment and plan as above except as otherwise noted Labs and images reviewed Sue is a 78-year-old female with past medical history of aortic stenosis, MR, cardiomyopathy last EF 50-55% 01/2024, DM 2, hypertension who presented after an episode of syncope similar to a prior episode at the end of May. With prior episode patient was volume contracted and with a low magnesium, and were orthostatic in nature. Patient woke up today and went to the bathroom and had a bowel movement, went downstairs with her motorized chair, stood up, got lightheaded and nauseous and sat for around 15 minutes and then had an unresponsive episode Sodium normal, potassium normal. Magnesium is low at 1.5. Bio fire is negative. CTA head and neck are normal. CTA of the chest does not show evident evidence of dissection or PE. Multiple pulmonary nodules for which a repeat CT in 6 months is recommended. No acute abnormality on x-ray EKG: Sinus with PVCs. No territorial ST segment changes. Per episode seemed much longer and more severe than prior. DId have prior EEG with neuro previously which was negative. Recurrent syncope. Occurred after BM and being at the kitchen. No evidence of abnormality on EKG. Magnesium is again low. No signs of infection. Troponin is normal.? Orthostatic versus vasovagal, she is preload depended due to and may have symptoms with mild volume contraction. Agree with electrolyte repletion, telemetry monitoring. Patient is on Entresto and metoprolol which may be contributing to this. Entresto dose reduced. No evidence of symptomatic bradycardia on admission. Last event monitor with NSVT, and mg is low. Arrythmogenic is not excluded. PG Care Time/CCT Total # of Minutes Spent Total Time Spent with Patient: Total time spent is greater than 50% in coordination of care (as documented) at patient's floor/unit and/or counseling patient: C[place] [address] INT INP/OBS CARE 3/75MIN Patient Type Established History Comprehensive Exam Comprehensive Medical Decision Making High Complexity Diagnoses Unresponsive episode R40.4 Hypomagnesemia E83.42 Diabetes mellitus type 2, diet-controlled E11.9 Nonrheumatic mitral valve regurgitation I34.0 Cardiac valve disease etiology: nonrheumatic Nonrheumatic aortic insufficiency with aortic stenosis I35.2 Cardiac valve disease etiology: nonrheumatic Recurrent syncope R55 Cardiomyopathy, unspecified type I42.9 Cardiomyopathy type: unspecified Dehydration E86.0 (4) Mitral regurgitation Cardiac valve disease etiology: nonrheumatic Qualified Code(s): I34.0 - Nonrheumatic mitral (valve) insufficiency (5) Aortic valve stenosis with insufficiency Cardiac valve disease etiology: nonrheumatic Qualified Code(s): I35.2 - Nonrheumatic aortic (valve) stenosis with insufficiency (7) Cardiomyopathy Cardiomyopathy type: unspecified Qualified Code(s): I42.9 - Cardiomyopathy, unspecified
[2024-07-11] MEDS: LACTATED RINGER'S 1,000 ML IV SCH (14:25)
[2024-07-11] MEDS: ASPIRIN 81 MG ECTAB PO ONE (14:31)
[2024-07-11] MEDS ORDERED: CARBOHYDRATES FOR HYPOGLYCEMIA PO PRN (15:25)
[2024-07-11] MEDS ORDERED: GLUCAGON FOR INJ 1 MG VIAL SQ PRN (15:25)
[2024-07-11] MEDS ORDERED: GLUCOSE 10 TAB/TUBE PO PRN (15:25)
[2024-07-11] MEDS ORDERED: NON-FORMULARY MEDICATION (Magnesium 1 TAB) PO SCH (15:25)
[2024-07-11] MEDS ORDERED: ACETAMINOPHEN 325 MG TAB PO PRN (15:25)
[2024-07-11] MEDS ORDERED: ONDANSETRON INJ 2 MG/ML 2 ML VIAL IV PRN (15:25)
[2024-07-11] MEDS ORDERED: GLUCOSE 40% GEL 15 GM TUBE PO PRN (15:25)
[2024-07-11] MEDS ORDERED: DEXTROSE 50% 50 ML SYRINGE IV PRN (15:25)
[2024-07-11] MEDS: METHENAMINE HIPPURATE 1 GM TAB PO SCH (20:25)
[2024-07-11] MEDS: nitrofurantoin macrocrystaL 50 MG CAP PO SCH (20:25)
[2024-07-11] MEDS: VALSARTAN/SACUBITRIL 26/24MG TAB PO SCH (20:26)
[2024-07-12 06:23] LABS: Basophils # (auto) 0.08 K/uL (0.00-0.20); Basophils % (auto) 0.9 %; Eosinophils # (auto) 0.18 K/uL (0.00-0.50); Hematocrit (blood only) 37.3 % (37.0-47.0); Hemoglobin 12.5 g/dl (12.0-16.0); Immature Granulocytes # (auto) 0.05 K/uL (0.01-0.20); Immature Granulocytes % (auto) 0.6 %; Lymphocytes # (auto) 1.94 K/uL (1.20-3.40); Mean Corpuscular Hemoglobin 32.1 pg (25.0-34.0); Mean Corpuscular Hgb Conc 33.5 g/dL (32.0-36.0); Mean Corpuscular Volume 95.6 fL (80.0-100.0); Mean Platelet Volume 10.1 fL (9.4-12.4); Monocytes # (auto) 0.87 K/uL (0.11-0.59); Monocytes % (auto) 9.9 %; Neutrophils # (auto) 5.71 K/uL (1.40-6.50); Neutrophils % (auto) 64.6 %; Platelet Count 231 K/uL (130-400); RDW Coefficient of Variation 13.8 % (11.5-14.5); RDW Standard Deviation 48.2 fL (36.4-46.3); White Blood Count 8.83 K/ul (4.8-10.8)
[2024-07-12 06:47] LABS: BUN Creatinine Ratio 16.9 (10-20); Calcium 8.3 mg/dl (8.6-10.3); Creatinine Clr Calc Pharmacy 87.2 ml/min; Est GFR (African American) 103.2 ml/min; Magnesium 1.7 mg/dl (1.7-2.4); Potassium 3.7 mmol/L (3.5-5.1)
[2024-07-12] MEDS: ASPIRIN 81 MG ECTAB PO SCH (09:37)
[2024-07-12] MEDS: POTASSIUM CHLORIDE 10 MEQ TABCR PO SCH (09:37)
[2024-07-12] MEDS: METOPROLOL SUCC 25MG EXT REL TAB PO SCH (09:38)
--- NOTE | 2024-07-12 10:58 | XCELERA ---
[id number] \\[id number]
--- NOTE | 2024-07-12 13:06 | Cardiology Consultation ---
Date of Consultation July 12, 2024 Assessment & Plan (1) Recurrent syncope: 2. Low-flowlow gradient aortic stenosis 3. Frequent PVCs 4. Recovered cardiomyopathy 5. Hypertension 6. Rheumatoid arthritis on methotrexate 7. Coronary artery calcification on CT Recurrent syncopal events without associated cardiac symptoms. Some progression in from 5 months ago. Actual severity difficult to assess in the setting of low-flow, low gradient. Valve appears heavily calcified on CT. Symptom description atypical for valve disease, arrhythmia and ischemia but feel further testing warranted. Frequent PVCs, Sinus tachycardia worse standing since admit - suspect symptoms related to orthostasis, possibly some vagal/dysautonomia component. Dobutamine stress echo to evaluate ischemia and further assess aortic valve gradient this afternoon. Likely will obtain CT aortic valve calcium score as an outpatient to further assess severity No symptoms or arrhythmia during prior 30-day event monitor. Will arrange implantable loop monitor with EP in near future Recommend holding Entresto currently Continue current Toprol-XL Will follow History of Present Illness Attending Physician: Nj Mcclain MD History of Present Illness Mrs. Castrejon is a very pleasant 78-year-old woman with a history of RA on methotrexate, type 2 DM, HTN, recovered cardiomyopathy, frequent PVCs and moderate admitted with syncope/unresponsive event. Patient has had multiple episodes of presyncope/syncope. Initially 09/2023 admitted with dizziness/seizure-like episode in the setting of fever. Brain MRI/EEG unremarkable, echo EF 3540% in the setting of frequent PVCs. Seen by cardiology and transition from atenolol to Toprol-XL, and started on Entresto. 30-day event monitor 11/2023 showed rare brief SVT/1 episode NSVT, PVCs 2% burden, no symptoms while wearing monitor. Repeat echo 01/2024 showed recovered EF with moderate . Seen in ED 06/06/2024 with recurrent episode of syncope. Persistent dizziness after waking, sat down in the kitchen and unresponsive. No associated symptoms. Repeat neuroimaging, ECG/troponin unremarkable. Yesterday had a similar event to that in May. Got up from bed feeling dizzy. Made her way downstairs to the kitchen and had to sit down. Found by her daughter unresponsive for >1-minute. Slow to wake up and then had a second episode. Patient denies any preceding chest pain/palpitation/shortness of breath/nausea. No recent changes to her health or meds, no recent illness, no change in p.o. intake. Denies heart failure symptoms. At baseline limited to short distances like going to worship with walker. Limited by fatigue/legs giving out with extended exertion, family states change in exercise tolerance since first episode 09/2023. ECG with no ST changes, still with frequent PVCs. HS TropI negative. Repeat echo EF 50%, low-flow low gradient moderate to severe . Allergies Allergy/AdvReac Type Severity Reaction Status Date / Time animal dander Allergy coughing, Verified 06/06/24 10:57 sneezing No Known Drug Allergies Allergy Verified 04/24/24 15:04 Home Medications Medication Instructions Recorded Confirmed Type methotrexate sodium 2.5 mg tablet 20 mg PO WEEKLY 09/22/20 07/11/24 History metoprolol succinate 25 mg 25 mg PO DAILY #90 tabs 10/31/23 07/11/24 Rx tablet,extended release 24 hr potassium chloride 10 mEq 10 meq PO DAILY 10/31/23 07/11/24 History tablet,extended release sacubitril 24 mg-valsartan 26 mg 1 tab PO BID #180 tabs 01/04/24 07/11/24 Rx tablet (Entresto) nitrofurantoin macrocrystal 50 mg 50 mg PO HS #90 caps 04/23/24 07/11/24 Rx capsule aspirin 81 mg tablet,delayed 81 mg PO DAILY 06/06/24 07/11/24 History release calcium carbonate 500 mg PO DAILY 06/06/24 07/11/24 History methenamine hippurate 1 gram 1 g PO HS 06/06/24 07/11/24 History tablet (Hiprex) multivitamin 1 tab PO DAILY 06/06/24 07/11/24 History magnesium 1 tab PO DIRECTED 07/11/24 07/11/24 History Patient History Medical History (Updated 07/12/24 @ 01:36 by Pk Hollins MD) Aortic valve sclerosis Malignant neoplasm of uterus Rheumatoid arthritis Bilateral otitis media with spontaneous rupture of eardrum HTN (hypertension) Surgical History History of hernia repair S/P knee replacement S/P hysterectomy S/P cholecystectomy Family History Grandfather Stroke Aunt Cancer Other Asthma No family history of bleeding disorder Denies family history of Ovarian cancer Prostate cancer Heart disease Myocardial infarction Breast cancer Colorectal cancer Hypertension Social History Smoking Status: Never smoker Second Hand Exposure: No; Do You Dip or Chew Tobacco: No; Hx Alcohol Use: No Hx Substance Use: No Preferred Language: Irish Communication Ability: Effective Visual Impairment: No Limitations 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 Fishing Floats Required: No Beliefs That Will Affect Care: None marital status: Current Living Situation: Spouse Current Living Situation Comment: At home w/ current occupational status: retired 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 How many Children do You have: 6 Other Information That Helps Us Care for You: No Feels Safe at Home: Yes Childhood Exposure to Second-Hand Smoke: Yes Diet: regular Dental Care, Regularly: Yes Physical Activity Frequency: Daily Seatbelt Use: always Sunscreen Use: Yes Assistive Devices: Walker Review of Systems Review of Systems: All systems reviewed & are unremarkable except as noted in HPI & below Physical Exam Physical Exam: General: Comfortable HEENT: Sclerae anicteric Lungs: Clear to auscultation bilaterally, no crackles or wheezes Cardiac: Regular, tachycardic, 3 out of 6 systolic ejection murmur, late peaking preserved S2, normal carotid upstrokes Vascular: 2+ radial No bruits Abdomen: Soft, nontender Extremities: Well perfused, trace peripheral edema, distal finger deformities Neuro: Nonfocal Psych: Alert orient x3, normal affect and mood Results & Data Vital Signs (Past 12 Hours) Vital Signs Temp Pulse Pulse Resp BP BP Pulse Ox 07/12/24 11:52 98.1 F 93 H 16 159/93 H 96 07/12/24 07:30 98.2 F 89 18 167/86 H 96 07/12/24 07:11 75 07/12/24 05:01 143/75 H 07/12/24 04:00 98.2 F 90 18 171/92 H 97 O2 Del Method 07/12/24 11:52 Room Air 07/12/24 07:30 Room Air 07/12/24 07:11 07/12/24 05:01 07/12/24 04:00 Room Air PG Care Time/CCT Total # of Minutes Spent Total Time Spent with Patient: Total time spent is greater than 50% in coordination of care (as documented) at patient's floor/unit and/or counseling patient: Coding Level of Care Code 04329 INT INP/OBS CARE 3MIN Diagnoses Recurrent syncope R55
[2024-07-12] MEDS: DOBUTamine HCL 12.5 MG/ML 20 ML VIAL IV ONE (14:24)
[2024-07-12] MEDS: ATROPINE SULFATE 0.1 MG/ML 10ML SYR IV ONE (14:24)
[2024-07-12] MEDS: METOPROLOL TARTRATE 1 MG/ML VIAL IV ONE (14:25)
[2024-07-12] MEDS: NITROGLYCERIN SL 0.4 MG/TAB TAB ONE (15:33)
--- NOTE | 2024-07-12 17:15 | XCELERA ---
[id number]
--- NOTE | 2024-07-12 18:05 | Hospitalist Progress Note ---
Date of Service July 12, 2024 Assessment & Plan (1) Unresponsive episode: Plan: Unresponsive episode on the morning of 07/11; similar to prior episodes - Suspect this is secondary to a combination of dehydration and aortic stenosis, possibly some vagal/dysautonomia component - No strokelike activity or seizure-like activity witnessed - Initial head imaging without abnormalities - Chest CTA revealed moderate aortic valvular calcification; no acute abnormalities - Last echocardiogram on 01/26/2024 revealed LVEF at 50-55% with valvular moderate aortic stenosis - Positive orthostatic vital signs - Cardio consulted - Repeat echocardiogram revealed LVEF 50-55%, slight progression in , frequent PVCs new, no regional wall abnormalities - Dobutamine stress echo negative for ischemia at 92% MPHR, moderate-severe aortic stenosis - Will likely get CT aortic valve calcium score as an outpatient to further assess severity - No symptoms or arrhythmia during prior 30-day event monitor. Cardiology to arrange implantable loop monitor with EP in the near future - Hold Entresto. Continue Toprol-XL (2) Hypomagnesemia: Plan: Magnesium 1.5 on arrival - Magnesium sulfate 1 g IV x 2 - Mag augmented appropriately after repletion - Started daily magnesium p.o. supplementation. Continue on discharge. (3) Diabetes mellitus type 2, diet-controlled: Plan: Last A1c at 6.7% on 04/30/2024 Patient is not on home medications for diabetes Will defer starting her on insulin at this time T2DM diet BSG ACHS Adjust regimen as needed Plan Consulted cardiology Ordered echocardiogram Placed Entresto on hold Updated patient's at bedside CODE STATUS: Full code VTE PPx: Lovenox 40 mg SQ q24h Admission and Anticipated Discharge Date Admission Date: July 11, 2024 Subjective Patient seen and evaluated at bedside with present. She reports that she was feeling dizzy upon getting out of bed yesterday morning, went downstairs for breakfast, but notes that she does not remember her episode of unresponsiveness. She does note lower extremity weakness for the past few months. She denies chest pain, palpitations, shortness of breath, lighthe adedness, abdominal pain, nausea, vomiting, diarrhea, urinary symptoms. Reviewed the results of her echocardiogram with the patient and her . Plan for dobutamine stress test later. No additional complaints or concerns at this time. Physical Exam Physical Exam: General: No acute distress, nondiaphoretic, well-developed, well-nourished. Skin: The skin was without rashes, erythema, edema, or bruising. Cardiac: Regular rate and rhythm. 4/6 systolic murmur noted. Pulm: Clear to auscultation bilaterally without wheezes, rales or rhonchi. No respiratory distress. 95% on room air. Abdominal: Soft, nontender, nondistended. Bowel sounds present. Neuro: A&O x3. No focal neurological deficits. Results & Data Results & Data Vital Signs (Past 12 Hours) Vital Signs Temp Pulse Pulse Resp BP BP Pulse Ox 07/12/24 15:37 36.4 C L 86 17 143/82 H 95 07/12/24 14:49 104 H 07/12/24 11:52 36.7 C 93 H 16 159/93 H 96 07/12/24 07:30 36.8 C 89 18 167/86 H 96 07/12/24 07:11 75 O2 Del Method 07/12/24 15:37 Room Air 07/12/24 14:49 07/12/24 11:52 Room Air 07/12/24 07:30 Room Air 07/12/24 07:11 Laboratory Results Reviewed CBC Reviewed BMP Diagnostic Findings Reviewed echocardiogram Reviewed dobutamine stress test Chest X-Ray 07/11/24 08:40 SINGLE VIEW CHEST CLINICAL HISTORY: Atypical chest pain FINDINGS: An AP, portable, upright chest radiograph is compared to study dated 06/06/2024. The cardiomediastinal silhouette is unremarkable noting atherosclerotic calcification of the thoracic aorta. Chronic interstitial thickening is similar to previous. There is bibasilar scarring/atelectasis. No airspace consolidation or large pleural effusion is identified. No pneumothorax is seen. The skeletal structures are osteopenic. The bony thorax is grossly intact. Arthritic change is seen in the shoulders. IMPRESSION: No acute cardiopulmonary abnormality. ACT 112: Negative or not required by law. Electronically signed by: Boo Chong M.D. 07/11/2024 9:17 AM Chest CTA 07/11/24 09:20 CT ANGIOGRAPHY OF THE CHEST DISSECTION PROTOCOL CLINICAL HISTORY: , syncope, HTN, back pain COMPARISON STUDY: Chest radiograph performed earlier today. TECHNIQUE: Before and following the IV administration of 120 mL of Optiray, helical axial images of the chest were obtained. Maximal intensity projections and sagittal and coronal reformats were viewed on an independent 3D workstation. IV contrast was administered without complication. Automated exposure control was utilized for the study. A dose lowering technique was utilized adhering to the principles of ALARA. FINDINGS: There is moderate aortic valvular calcification. Caliber of the thoracic aorta is normal. There is no intramural hematoma or thoracic aortic dissection. There is mild cardiomegaly and moderate coronary artery calcification. There is no pericardial effusion. No central pulmonary emboli are identified. There is no pneumothorax or pleural effusion. No consolidation to suggest pneumonia. Multiple small solid noncalcified pulmonary nodules measure up to 7 mm. The largest is within the right lower lobe on image 155 of 249. Visualized portions of the upper abdomen are unremarkable. The gallbladder is surgically absent. IMPRESSION: 1. No thoracic aortic dissection. 2. No acute intrathoracic findings. 3. Moderate aortic valvular calcification moderate coronary artery calcification. 4. Multiple pulmonary nodules measuring up to [address] in 6 months to ensure stability is recommended. ACT 112: Negative or not required by law. Electronically signed by: Braydon Patten M.D. 07/11/2024 10:[address] 07/11/24 09:20 CT SCAN OF THE BRAIN WITHOUT IV CONTRAST CLINICAL HISTORY: Syncope. Hypertension. COMPARISON STUDY: CT of the brain dated 06/06/2024. TECHNIQUE: Unenhanced axial CT scan of the brain is performed from the vertex to the skull base. A dose lowering technique was utilized adhering to the principles of ALARA. FINDINGS: Brain parenchyma: There is age-related involutional change noting mild subcortical and periventricular microangiopathic disease. There is no hemorrhage, mass effect, or evidence of acute territorial ischemia by CT criteria. A chronic lacunar infarct is noted in the right thalamus/internal capsule. Oh-white matter differentiation is preserved. No extra-axial fluid collection is seen. Ventricles, sulci, cisterns: Prominent secondary to involutional change. Intracranial vasculature: There is atherosclerotic calcification of the cavernous carotid and vertebral arteries. Calvarium: Unremarkable. Sinuses and mastoids: The visualized paranasal sinuses are clear. There is trace right mastoid effusion. The left mastoid air cells are well pneumatized. Orbits: The bony orbits are grossly intact. There is a right ocular lens implant. IMPRESSION: There is no hemorrhage, mass effect, or evidence of acute ter ritorial ischemia by CT criteria. ACT 112: Negative or not required by law. Electronically signed by: Boo Chong M.D. 07/11/2024 10:23 AM Head CTA 07/11/24 09:20 CT ANGIOGRAM OF THE BRAIN CLINICAL HISTORY: Syncope COMPARISON STUDY: CT angiogram of the brain dated 06/06/2024. TECHNIQUE: Following the IV administration of 120 cc of Optiray 320, CT a ngiogram of the brain was performed from the skull base to the vertex. Images are reviewed in the axial, sagittal, and coronal planes. 3-D MIPS images are created and assessed. IV contrast was administered without complication. A dose lowering technique was utilized adhering to the principles of ALARA. CT DOSE: 2436.81 mGy.cm FINDINGS: Brain parenchyma: There is age related involutional change noting mild subcortical and periventricular microangiopathic disease. There is no evidence of hemorrhage, mass effect, or acute territorial ischemia noting angiographic phase technique. There is no evidence of enhancing mass lesion on the angiogram phase images. No extra-axial fluid collection is seen. Oh-white matter differentiation is preserved. Ventricles, sulci, and cisterns: Prominent secondary to involutional change. CT angiogram of the brain: There is atherosclerotic calcification of the cavernous carotid and vertebral arteries. The internal carotid arteries are widely patent, as are the anterior and middle cerebral arteries. The right A1 segment is atretic. The vertebrobasilar system and posterior cerebral arteries are widely patent. The left vertebral artery is dominant. The right vertebral artery terminates as the PICA. There is no aneurysm, high-grade stenosis, or focal vessel cutoff identified throughout the intracranial circulation. Dural sinuses: Clear as visualized. Orbits: The bony orbits are intact. The orbital contents are normal as visualized noting a right ocular lens implant. Sinuses and mastoids: The paranasal sinuses are clear. The mastoid air cells are well pneumatized. Calvarium: Unremarkable. IMPRESSION: 1. There is no evidence of hemorrhage, mass effect, or acute territorial ischemia noting angiographic phase technique. 2. Unremarkable CT angiogram of the brain. ACT 112: Negative or not required by law. Electronically signed by: Boo Chong M.D. 07/11/2024 10:34 AM Neck CTA 07/11/24 09:20 CT ANGIOGRAPHY OF THE NECK WITH CONTRAST CLINICAL HISTORY: , syncope, HTN, back pain COMPARISON STUDY: CTA of the neck June 06, 2024. Technique: CT angiography of the carotid and vertebral arteries was obtained using Optiray and 3D reconstruction on an independent workstation. NASCET criteria was utilized. Automated exposure control was utilized for the study. A dose lowering technique was utilized adhering to the principles of ALARA. Findings: There is no cervical lymphadenopathy. No cervical spine fractures are identified. The bilateral common carotid, cervical internal carotid and vertebral arteries are patent. There is mild plaque within the proximal bilateral internal carotid arteries without stenosis. The left vertebral artery is dominant and patent. The right vertebral artery ends PICA. There is no aneurysm or dissection within the neck. IMPRESSION: No stenosis or dissection within the major vessels of the neck. ACT 112: Negative or not required by law. Electronically signed by: Braydon Patten M.D. 07/11/2024 10:36 AM PG Care Time/CCT Total # of Minutes Spent Total Time Spent with Patient: Total time spent is greater than 50% in coordination of care (as documented) at patient's floor/unit and/or counseling patient: Coding Level of Care Code 03721 SUB INP/OBS CARE 3/50MIN Diagnoses Unresponsive episode R40.4 Hypomagnesemia E83.42 Diabetes mellitus type 2, diet-controlled E11.9
[2024-07-12] MEDS: ENOXAPARIN INJ 40 MG/0.4 ML SYR SQ SCH (20:19)
--- NOTE | 2024-07-12 21:38 | Electrocardiogram Report ---
Test Reason : Blood Pressure : */* mmHG Vent. Rate : 99 BPM Atrial Rate : 99 BPM P-R Int : 174 ms QRS Dur : 84 ms QT Int : 332 ms P-R-T Axes : 66 37 74 degrees QTcB Int : 426 ms Sinus rhythm with occasional Premature ventricular complexes Otherwise normal ECG When compared with ECG of 06-Jun-2024 08:11, Criteria for Septal infarct are no longer Present Confirmed by Sandor Farah ([id number]) on 07/12/2024 9:38:29 PM Referred By: Confirmed By: Sandor Farah
[2024-07-13 06:07] LABS: Basophils # (auto) 0.06 K/uL (0.00-0.20); Basophils % (auto) 0.9 %; Eosinophils % (auto) 4.4 %; Hematocrit (blood only) 32.5 % (37.0-47.0); Hemoglobin 11.2 g/dl (12.0-16.0); Immature Granulocytes # (auto) 0.06 K/uL (0.01-0.20); Immature Granulocytes % (auto) 0.9 %; Lymphocytes # (auto) 1.87 K/uL (1.20-3.40); Lymphocytes % (auto) 27.3 %; Mean Corpuscular Hemoglobin 32.7 pg (25.0-34.0); Mean Corpuscular Hgb Conc 34.5 g/dL (32.0-36.0); Mean Corpuscular Volume 94.8 fL (80.0-100.0); Mean Platelet Volume 10.1 fL (9.4-12.4); Monocytes # (auto) 0.78 K/uL (0.11-0.59); Monocytes % (auto) 11.4 %; Neutrophils # (auto) 3.78 K/uL (1.40-6.50); Neutrophils % (auto) 55.1 %; Nucleated RBC # (auto) 0.02 K/uL (0.00-0.12); Nucleated RBC % (auto) 0.3 %; Platelet Count 222 K/uL (130-400); RDW Coefficient of Variation 13.4 % (11.5-14.5); RDW Standard Deviation 45.9 fL (36.4-46.3); Red Blood Count 3.43 M/uL (4.20-5.40); White Blood Count 6.85 K/ul (4.8-10.8)
[2024-07-13 06:34] LABS: BUN Creatinine Ratio 17.5 (10-20); Creatinine Clr Calc Pharmacy 81.9 ml/min; Est GFR (Non-African American) 87.1 ml/min; Magnesium 1.7 mg/dl (1.7-2.4); Potassium 3.7 mmol/L (3.5-5.1)
[2024-07-13] MEDS: MAGNESIUM OXIDE 400 MG TAB PO SCH (08:41)
[2024-07-13 11:27] VITALS: RESP 17; TEMP 97.5; O2SAT 95
--- NOTE | 2024-07-13 11:40 | Cardiology Progress Note ---
Date of Service July 13, 2024 Assessment & Plan (1) Recurrent syncope: Plan: 2. Low-flowlow gradient aortic stenosismoderate to severe 3. Frequent PVCs 4. Recovered cardiomyopathy 5. Hypertension 6. Rheumatoid arthritis on methotrexate 7. Coronary artery calcification on CT Stable from a cardiac standpoint overnight. No recurrent dizziness. Persistent sinus tachycardia, frequent PVCs and brief AT on telemetry but no other significant arrhythmias and has remained asymptomatic. Stress test yesterday negative for ischemia and valve gradients stable with dobutamine. From a cardiac standpoint okay with discharge today Continue to hold Entresto until follow-up Continue current Toprol-XL Will obtain CT aortic valve calcium score as an outpatient to further assess severity No symptoms or arrhythmia during prior 30-day event monitor. Will arrange implantable loop monitor with EP in near future Follow-up with me in 3 to 4 weeks. Admission and Anticipated Discharge Date Admission Date: July 11, 2024 Subjective Feeling well this morning. Denies any recurrent symptoms of dizziness, presyncope. No chest pain. No palpitations. Telemetry reviewedsinus tachycardia, up to 130s with standing. Frequent PVCs. Brief episodes of asymptomatic AT in 120s, longest 19 beats. Review of Systems Review of Systems: All systems reviewed & are unremarkable except as noted in HPI & below Physical Exam Physical Exam: General: Comfortable HEENT: Sclerae anicteric Lungs: Clear to auscultation bilaterally, no crackles or wheezes Cardiac: Regular, tachycardic, 3 out of 6 systolic ejection murmur, late peaking preserved S2, normal carotid upstrokes Vascular: 2+ radial No bruits Abdomen: Soft, nontender Extremities: Well perfused, trace peripheral edema, distal finger deformities Neuro: Nonfocal Psych: Alert orient x3, normal affect and mood Results & Data Vital Signs (Past 12 Hours) Vital Signs Temp Pulse Pulse Resp BP BP Pulse Ox 07/13/24 11:23 97.5 F L 80 17 158/82 H 95 07/13/24 08:19 97.9 F 73 16 149/76 H 96 07/13/24 07:47 07/13/24 07:13 57 L 07/13/24 03:33 98.1 F 87 18 137/74 97 07/12/24 23:50 63 O2 Del Method 07/13/24 11:23 Room Air 07/13/24 08:19 Room Air 07/13/24 07:47 Room Air 07/13/24 07:13 07/13/24 03:33 Room Air 07/12/24 23:50 PG Care Time/CCT Total # of Minutes Spent Total Time Spent with Patient: Total time spent is greater than 50% in coordination of care (as documented) at patient's floor/unit and/or counseling patient: Coding Level of Care Code 54327 SUB INP/OBS CARE 2/35MIN Diagnoses Recurrent syncope R55
[2024-07-13 12:05] VITALS: BP 132/77
[2024-07-13 12:27] VITALS: PULSE 89
--- NOTE | 2024-07-13 17:21 | Discharge Summary ---
Discharge Summary Date of Service July 13, 2024 Principal Dx & Hospital Course #1 = Principal Diagnosis (1) Unresponsive episode: Unresponsive episode on the morning of 07/11; similar to prior episodes - Suspect this is secondary to a combination of dehydration and aortic stenosis, possibly some vagal/dysautonomia component - No strokelike activity or seizure-like activity witnessed - Initial head imaging without abnormalities - Chest CTA revealed moderate aortic valvular calcification; no acute abnormalities > Additionally, Multiple pulmonary nodules measuring up to [address] in 6 months to ensure stability is recommended. - Last echocardiogram on 01/26/2024 revealed LVEF at 50-55% with valvular moderate aortic stenosis - Positive orthostatic vital signs - Cardio consulted - Repeat echocardiogram revealed LVEF 50-55%, slight progression in , frequent PVCs new, no regional wall abnormalities - Dobutamine stress echo negative for ischemia at 92% MPHR, moderate-severe aortic stenosis - Will likely get CT aortic valve calcium score as an outpatient to further assess severity - No symptoms or arrhythmia during prior 30-day event monitor. Cardiology to arrange implantable loop monitor with EP in the near future - Hold Entresto until follow-up cardiology appointment with Dr. Hernandez. Continue Toprol-XL (2) Hypomagnesemia: Magnesium 1.5 on arrival - Magnesium sulfate 1 g IV x 2 - Mag augmented appropriately after repletion - Continue daily oral supplementation (3) Diabetes mellitus type 2, diet-controlled: Last A1c at 6.7% on 04/30/2024 Patient is not on home medications for diabetes Will defer starting her on insulin at this time T2DM diet BSG ACHS Adjust regimen as needed Plan CODE STATUS: Full code Notes For Next Care Provider Patient admitted to the hospital after unresponsive episode at home. Imaging including head, neck, and chest were negative for acute processes. Cardiac workup revealed moderate-severe aortic stenosis. Unresponsive episode likely a combination of dehydration, aortic stenosis, and some autonomic component. Plans to continue cardiology workup in outpatient setting. Multiple pulmonary nodules measuring up to [address] in 6 months to ensure stability is recommended. Medication Changes From Visit Hold Entresto until follow-up cardiology appointment with Dr. Hernandez Admission HPI Per Admitting Provider Sue is a 78-year-old female with PMH of osteoarthritis, SNHL, T2DM, cardiomyopathy, mitral regurgitation, and aortic valve stenosis. She presented on 07/11 after an unresponsive episode while sitting eating breakfast this morning. Patient reports she woke up and went to the bathroom as normal. She then got dressed and used her electric stair chair to get down the stairs. When she stood from the stair chair, she felt lightheaded like she was going to pass out. She sat down on her breakfast table, and when her daughter came to see her she was unresponsive. Both daughter and were yelling at her, but she was not responding. says she turned "oh" and had a blank stare. She denies loss of consciousness, but believes she lost consciousness. Eyes remained open. No strokelike activity such as slurred speech, facial droop, or unilateral deficits. No seizure-like activity such as jerking, tongue biting, loss of urinary continence. Patient denies history of CVA or seizures. She has had similar episodes of this, with the last one being in early June. Patient reports she knew her family was talking to her, but she was unable to respond. No recent falls or injuries to the head or neck. No sick contacts. Patient did not take her regular morning medications today; no recent change in medications. She manages her own medicine at home. Patient believes he is drinking enough water, denies any recent changes in dietary habits. She denies smoking, tobacco use, recent alcohol use. Patient is hypertensive at 166/85 at time of admission; vitals otherwise stable. ED course: Magnesium sulfate 1 g IV NSS 1000 mL IV ROS: Patient endorses lightheadedness, TRAMMELL yesterday (resolved), and episode of unresponsiveness/pallor. Patient denies fever, chills, night-sweats, joint pain, dizziness, changes in vision, chest pain, chest palpitations, SOB, pleuritic CP, cough, abdominal pain, N/V/D, changes in urinary/bowel habits, burning with urination, blood in the urine/stool, or numbness/tingling in the arms or legs. Admission Exam Per Admitting Provider General: no acute distress; pleasant affect; non-toxic appearing; well- nourished; cooperative; SpO2 97% on RA HEENT: normocephalic, atraumatic; no scleral icterus; PERRLA; vision and hearing grossly intact; patient demonstrates ability to smile and frown without unilateral deficits Neck: supple; no lymphadenopathy; trachea midline Skin: warm, dry without signs of tenting; no cyanosis; no rashes, bruising, lesions, or erythema noted CV: chest wall NTP; RRR; S1/S2 normal; 4/6 systolic ejection murmur auscultated at the second ICS MCL; pulses intact and symmetric at radial, DP, and PT Lungs: no acute respiratory distress; symmetrical chest wall expansion; clear breath sounds across all lung whitaker w/o adventitious sounds; no wheezing ABD: Soft, NTP; BS present; no rebound/guarding; no distention MSK: no tics or fasciculations; no edema noted in the LEs b/l, nonerythematous; 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 Skin: The skin was without rashes, erythema, edema, or bruising. Cardiac: Regular rate and rhythm. 4/6 systolic murmur noted. Pulm: Clear to auscultation bilaterally without wheezes, rales or rhonchi. No respiratory distress. 95% on room air. Abdominal: Soft, nontender, nondistended. Bowel sounds present. Neuro: A&O x3. No focal neurological deficits. Discharge Plan Discharge Items Patient Disposition: Home - Self-Care Reason For Visit: unresponsive episode Discharge Diagnosis: Unresponsive episode Activity: Resume your previous activity Non-emergency contact: Primary Care Provider and Clarifier Operator Helper Call non-emergency contact if: you have any medication questions and your symptoms worsen Follow-up/Referrals: Mary Lam MD [Primary Care Provider] - 07/25/24 3:20 am (Follow-up within 1-2 weeks please note- office is now in the [facility], [address] [place] [address]) Enmanuel Hernandez MD [Physician] - 07/31/24 10:30 am (Follow-up in 3-4 weeks follow up is with Ranjeet Coffey) Diet: Carb Consistent or DM2 and Heart Healthy Addtl Attending Provider Instructions: Mrs. Castrejon, You were admitted to the hospital after an unresponsive episode at home. The imaging of your head, neck, and chest were negative. You also have an extensive cardiac workup, including an echocardiogram and chemical stress test, which showed moderate-severe aortic stenosis. All of this to say, your unresponsive episode was likely a combination of dehydration, aortic stenosis, and some dysautonomia component. Upon discharge from the hospital: * Continue to follow-up with cardiology. Their office will call you with a follow-up appointment date and time. * Hold your Entresto until your cardiology follow-up appointment. Dr. Hernandez will decide at that time when to resume your Entresto. * Continue your other home medications as prescribed. Please return to the hospital if you experience any of the following: additional unresponsive episodes, confusion, lightheadedness, dizziness, passing out, paco st pain, heart palpitations, shortness of breath, difficulty breathing, numbness or weakness in your arms, legs, or face, or trouble speaking or seeing. It was a pleasure taking care of you while you were in the hospital, Cheryl Candelaria PA-C Pending Studies at Discharge: No Stand-Alone Forms: My [facility], Smoking Cessation Medications and DC Order Prescriptions: Continued methotrexate sodium 2.5 mg tablet 20 mg PO WEEKLY Patient Comments: PO WEEKLY; Rx Instructions: on Mondays potassium chloride 10 mEq tablet extended release 10 meq PO DAILY Dose Instruction: TAKE 2 TABLETS BY MOUTH DAILY FOR HYPOKALEMIA Rx Instructions: TAKE 1 TABLETS BY MOUTH DAILY FOR HYPOKALEMIA metoprolol succinate 25 mg tablet extended release 24 hr 25 mg PO DAILY Qty: 90 3RF nitrofurantoin macrocrystal 50 mg capsule 50 mg PO HS Qty: 90 1RF Rx Instructions: must administer with a meal/food. Take one capsule daily at bedtime. methenamine hippurate [Hiprex] 1 gram tablet 1 g PO HS Rx Instructions: unsure multivitamin Tablet 1 tab PO DAILY aspirin 81 mg Tablet,Delayed Release (Dr/Ec) 81 mg PO DAILY calcium carbonate 500 mg calcium (1,250 mg) Tablet 500 mg PO DAILY magnesium 1 tab PO DIRECTED Rx Instructions: OTC, unknown dose Held Entresto 24-26 mg tablet 1 tab PO BID Qty: 180 3RF Hold Instructions: Resume on 07/23/24. Hold until follow-up appointment with Dr. Hernandez in Cardiology Discharge Orders: Discharge Order (Routine); Ordered 07/13/24 Ordered By: Merissa Ríos Admission Data Admit Date/Time: 07/11/24 13:37 Attending Provider: Merissa Ríos Admit Provider: Jim Cruz Primary Care Provider: Mary Lam Other Providers: Jim Cruz; Sandor Farah Other Interventions: Discharge Summary Assessment (RN) Last Done: 07/13/24 12:23 Hospital Stay Data Consultations Chest X-Ray 07/11/24 08:40 SINGLE VIEW CHEST CLINICAL HISTORY: Atypical chest pain FINDINGS: An AP, portable, upright chest radiograph is compared to study dated 06/06/2024. The cardiomediastinal silhouette is unremarkable noting atherosclerotic calcification of the thoracic aorta. Chronic interstitial thickening is similar to previous. There is bibasilar scarring/atelectasis. No airspace consolidation or large pleural effusion is identified. No pneumothorax is seen. The skeletal structures are osteopenic. The bony thorax is grossly intact. Arthritic change is seen in the shoulders. IMPRESSION: No acute cardiopulmonary abnormality. ACT 112: Negative or not required by law. Electronically signed by: Boo Chong M.D. 07/11/2024 9:17 AM Chest CTA 07/11/24 09:20 CT ANGIOGRAPHY OF THE CHEST DISSECTION PROTOCOL CLINICAL HISTORY: , syncope, HTN, back pain COMPARISON STUDY: Chest radiograph performed earlier today. TECHNIQUE: Before and following the IV administration of 120 mL of Optiray, helical axial images of the chest were obtained. Maximal intensity projections and sagittal and coronal reformats were viewed on an independent 3D workstation. IV contrast was administered without complication. Automated exposure control was utilized for the study. A dose lowering technique was utilized adhering to the principles of ALARA. FINDINGS: There is moderate aortic valvular calcification. Caliber of the thoracic aorta is normal. There is no intramural hematoma or thoracic aortic dissection. There is mild cardiomegaly and moderate coronary artery calcification. There is no pericardial effusion. No central pulmonary emboli are identified. There is no pneumothorax or pleural effusion. No consolidation to suggest pneumonia. Multiple small solid noncalcified pulmonary nodules measure up to 7 mm. The largest is within the right lower lobe on image 155 of 249. Visualized portions of the upper abdomen are unremarkable. The gallbladder is surgically absent. IMPRESSION: 1. No thoracic aortic dissection. 2. No acute intrathoracic findings. 3. Moderate aortic valvular calcification moderate coronary artery calcification. 4. Multiple pulmonary nodules measuring up to [address] in 6 months to ensure stability is recommended. ACT 112: Negative or not required by law. Electronically signed by: Braydon Patten M.D. 07/11/2024 10:[address] 07/11/24 09:20 CT SCAN OF THE BRAIN WITHOUT IV CONTRAST CLINICAL HISTORY: Syncope. Hypertension. COMPARISON STUDY: CT of the brain dated 06/06/2024. TECHNIQUE: Unenhanced axial CT scan of the brain is performed from the vertex to the skull base. A dose lowering technique was utilized adhering to the principles of ALARA. FINDINGS: Brain parenchyma: There is age-related involutional change noting mild subcortical and periventricular microangiopathic disease. There is no hemorrhage, mass effect, or evidence of acute territorial ischemia by CT criteria. A chronic lacunar infarct is noted in the right thalamus/internal capsule. Oh-white matter differentiation is preserved. No extra-axial fluid collection is seen. Ventricles, sulci, cisterns: Prominent secondary to involutional change. Intracranial vasculature: There is atherosclerotic calcification of the cavernous carotid and vertebral arteries. Calvarium: Unremarkable. Sinuses and mastoids: The visualized paranasal sinuses are clear. There is trace right mastoid effusion. The left mastoid air cells are well pneumatized. Orbits: The bony orbits are grossly intact. There is a right ocular lens implant. IMPRESSION: There is no hemorrhage, mass effect, or evidence of acute territorial ischemia by CT criteria. ACT 112: Negative or not required by law. Electronically signed by: Boo Chong M.D. 07/11/2024 10:23 AM Head CTA 07/11/24 09:20 CT ANGIOGRAM OF THE BRAIN CLINICAL HISTORY: Syncope COMPARISON STUDY: CT angiogram of the brain dated 06/06/2024. TECHNIQUE: Following the IV administration of 120 cc of Optiray 320, CT angiogram of the brain was performed from the skull base to the vertex. Images are reviewed in the axial, sagittal, and coronal planes. 3-D MIPS images are created and assessed. IV contrast was administered without complication. A dose lowering technique was utilized adhering to the principles of ALARA. CT DOSE: 2436.81 mGy.cm FINDINGS: Brain parenchyma: There is age related involutional change noting mild subcortical and periventricular microangiopathic disease. There is no evidence of hemorrhage, mass effect, or acute territorial ischemia noting angiographic phase technique. There is no evidence of enhancing mass lesion on the angiogram phase images. No extra-axial fluid collection is seen. Oh-white matter differentiation is preserved. Ventricles, sulci, and cisterns: Prominent secondary to involutional change. CT angiogram of the brain: There is atherosclerotic calcification of the cavernous carotid and vertebral arteries. The internal carotid arteries are widely patent, as are the anterior and middle cerebral arteries. The right A1 segment is atretic. The vertebrobasilar system and posterior cerebral arteries are widely patent. The left vertebral artery is dominant. The right vertebral artery terminates as the PICA. There is no aneurysm, high-grade stenosis, or focal vessel cutoff identified throughout the intracranial circulation. Dural sinuses: Clear as visualized. Orbits: The bony orbits are intact. The orbital contents are normal as visualized noting a right ocular lens implant. Sinuses and mastoids: The paranasal sinuses are clear. The mastoid air cells are well pneumatized. Calvarium: Unremarkable. IMPRESSION: 1. There is no evidence of hemorrhage, mass effect, or acute territorial ischemia noting angiographic phase technique. 2. Unremarkable CT angiogram of the brain. ACT 112: Negative or not required by law. Electronically signed by: Boo Chong M.D. 07/11/2024 10:34 AM Neck CTA 07/11/24 09:20 CT ANGIOGRAPHY OF THE NECK WITH CONTRAST CLINICAL HISTORY: , syncope, HTN, back pain COMPARISON STUDY: CTA of the neck June 06, 2024. Technique: CT angiography of the carotid and vertebral arteries was obtained using Optiray and 3D reconstruction on an independent workstation. NASCET criteria was utilized. Automated exposure control was utilized for the study. A dose lowering technique was utilized adhering to the principles of ALARA. Findings: There is no cervical lymphadenopathy. No cervical spine fractures are identified. The bilateral common carotid, cervical internal carotid and vertebral arteries are patent. There is mild plaque within the proximal bilateral internal carotid arteries without stenosis. The left vertebral artery is dominant and patent. The right vertebral artery ends PICA. There is no aneurysm or dissection within the neck. IMPRESSION: No stenosis or dissection within the major vessels of the neck. ACT 112: Negative or not required by law. Electronically signed by: Braydon Patten M.D. 07/11/2024 10:36 AM Diagnostic Imagining Performed 07/11/24 09:20 CT angio chest dissec wo/w con Stat CT angio head w con Stat CT angio neck with con Stat CT head/brain wo con Stat Pending Results Patient Have Any Pending Studies at Discharge: No Discharge Instructions Given to Patient (Per Discharging Provider) Mrs. Castrejon, Howard were admitted to the hospital after an unresponsive episode at home. The imaging of your head, neck, and chest were negative. You also have an extensive cardiac workup, including an echocardiogram and chemical stress test, which showed moderate-severe aortic stenosis. All of this to say, your unresponsive episode was likely a combination of dehydration, aortic stenosis, and some dysautonomia component. Upon discharge from the hospital: * Continue to follow-up with cardiology. Their office will call you with a follow-up appointment date and time. * Hold your Entresto until your cardiology follow-up appointment. Dr. Hernandez will decide at that time when to resume your Entresto. * Continue your other home medications as prescribed. Please return to the hospital if you experience any of the following: additional unresponsive episodes, confusion, lightheadedness, dizziness, passing out, chest pain, heart palpitations, shortness of breath, difficulty breathing, numbness or weakness in your arms, legs, or face, or trouble speaking or seeing. It was a pleasure taking care of you while you were in the hospital, Cheryl Candelaria PA-C Supervising Physician Co-Signing Physician Notes PA Supervision Note: I personally saw and examined the patient. I verified all gonzalez points and agree with ARON Candelaria with the following exceptions and/or additions: S-patient feeling well, no lightheadedness. She is ambulating. No chest pains or shortness of breath. O- Vitals reviewed Gen: AAOx3, NAD HEENT: Anicteric sclerae, EOMI CV: RRR 3/6 GABRIELA at the RUSB Pulm: CTAB no wcr Abd: +BS soft NT ND no masses or hernias Ext: No edema Skin: No rashes, warm/dry Neuro: Full strength throughout A/V-[id number]-old female here with recurrent syncope likely on the basis of worsening aortic stenosis versus hypotension. Okay to discharge to home with Entresto and plan for loop recorder implantation, close follow-up with cardiology as an outpatient Total Time Total Time Spent Total Time Spent (In Minutes): Greater than 30 minutes spent completing this discharge process including direct patient care, medication reconciliation, documentation, review of labs and images, and coordination of care. Coding Level of Care Code 35463 INP/OBS DISCH >30 MIN Diagnoses Unresponsive episode R40.4 Hypomagnesemia E83.42 Diabetes mellitus type 2, diet-controlled E11.9
== END 2024-07-13 13:59 | disposition home or self-care (01) | DRG 307 ==
LOC: ED 08:35 → SUATTDRO 13:37 → 2N 13:37

== ENCOUNTER 2024-09-19 13:28 | Observation (INO) ==
[2024-09-19] MEDS: OPTIRAY 320 125ml IV ONE (13:31)
--- NOTE | 2024-09-19 14:01 | CT Scan Report ---
CT angio head w con, CT head/brain wo con CLINICAL HISTORY: 79 years-old Female with neuro deficit, acute stroke suspected. Acute stroke lik e symptoms COMPARISON STUDY: CT neck of same day, CTA head and CT head 07/11/2024 TECHNIQUE: Unenhanced axial CT scan of the brain is performed. Subsequently, following the IV adminis tration of 112 cc of Optiray, CT angiogram of the brain was performed from the skull base to the vert ex. Images are reviewed in the axial, sagittal, and coronal planes. 3-D MIPS images are created and a ssessed. IV contrast was administered without complication. All measurements were obtained according to NASCET criteria. A dose lowering technique was utilized adhering to the principles of ALARA. FINDINGS: CT BRAIN: There is no acute intracranial hemorrhage, midline shift, hydrocephalus, intracranial mass, territori al ischemia or abnormal extra-axial collections. No abnormal intra-axial or extra-axial enhancement. Involutional changes with chronic microvascular ischemic disease. Unchanged 8 mm hypodensity within t he anterior medial right thalamus suggestive of a chronic lacunar infarct. Cerebral vascular calcific ations. Mastoid air cells and middle ear cavities are clear. No calvarial fracture. Paranasal sinuse s are clear. CT ANGIOGRAM OF THE BRAIN: The imaged bilateral internal carotid arteries are patent. The bilateral anterior and middle cerebral arteries are also patent. The vertebrobasilar system and posterior cerebral arteries are widely maldonado nt. Developmentally diminutive right vertebral artery terminates into the right PICA. Mild to moderat e multifocal stenoses of the intracranial arteries. There is no aneurysm, high-grade stenosis, or pro ximal branch occlusion identified. Dural sinuses appear patent. IMPRESSION: 1. No acute intracranial abnormality. 2. Unremarkable CTA of the head. ACT 112: Negative or not required by law. The above report was generated using voice recognition software. It may contain grammatical, syntax o r spelling errors. Electronically signed by: Carl Germain M.D. 09/19/2024 2:00 PM
--- NOTE | 2024-09-19 14:06 | CT Scan Report ---
CT ANGIOGRAPHY OF THE NECK WITH CONTRAST CLINICAL HISTORY: neuro deficit, acute stroke suspected COMPARISON STUDY: CTA of the neck July 11, 2024. Technique: CT angiography of the carotid and vertebral arteries was obtained using Optiray and 3D rec onstruction on an independent workstation. NASCET criteria was utilized. Automated exposure control was utilized for the study. A dose lowering technique was utilized adhering to the principles of ALA RA. CT DOSE: 1173.18 mGy.cm Findings: No cervical spine fractures are present. There is no cervical lymphadenopathy. The bilatera l common carotid, cervical internal carotid and vertebral arteries are patent. The left vertebral art kiara is dominant. The right vertebral artery is somewhat diminutive on a congenital basis. There is no dissection or aneurysm within the neck. There is mild plaque within the bilateral carotid bifurcatio ns without stenosis. IMPRESSION: No stenosis or dissection within the major vessels of the neck. ACT 112: Negative or not required by law. Electronically signed by: Braydon Patten M.D. 09/19/2024 2:05 PM
[2024-09-19 14:12] LABS: Basophils # (auto) 0.06 K/uL (0.00-0.20); Basophils % (auto) 0.6 %; Eosinophils # (auto) 0.24 K/uL (0.00-0.50); Eosinophils % (auto) 2.2 %; Hematocrit (blood only) 34.7 % (37.0-47.0); Hemoglobin 11.6 g/dl (12.0-16.0); Immature Granulocytes % (auto) 0.9 %; Lymphocytes # (auto) 1.45 K/uL (1.20-3.40); Lymphocytes % (auto) 13.3 %; Mean Corpuscular Hgb Conc 33.4 g/dL (32.0-36.0); Mean Corpuscular Volume 98.9 fL (80.0-100.0); Mean Platelet Volume 9.7 fL (9.4-12.4); Monocytes # (auto) 0.72 K/uL (0.11-0.59); Monocytes % (auto) 6.6 %; Neutrophils # (auto) 8.33 K/uL (1.40-6.50); Neutrophils % (auto) 76.4 %; Platelet Count 204 K/uL (130-400); RDW Coefficient of Variation 14.3 % (11.5-14.5); RDW Standard Deviation 51.2 fL (36.4-46.3); Red Blood Count 3.51 M/uL (4.20-5.40)
[2024-09-19 14:33] LABS: Alanine Aminotransferase 18 U/L (7-52); Albumin Globulin Ratio 0.9 (0.9-2); Albumin Level 3.3 gm/dl (3.4-5.0); Alkaline Phosphatase 78 U/L (34-104); Anion Gap 6 (3-11); Aspartate Aminotransferase 27 U/L (13-39); BUN Creatinine Ratio 14.7 (10-20); Bilirubin,Total 1.1 mg/dl (0.2-1.0); Blood Urea Nitrogen 11 mg/dl (6-23); Carbon Dioxide 26 mmol/L (21-32); Chloride 100 mmol/L (98-107); Globulin 3.5 gm/dl (2.5-4.0); Glucose 168 mg/dl (70-99(Fasting)); Magnesium 1.6 mg/dl (1.7-2.4); Potassium 3.9 mmol/L (3.5-5.1); Sodium 132 mmol/L (136-145); Total Protein 6.8 gm/dl (6.0-8.3)
[2024-09-19 14:35] LABS: Troponin I High Sensitivity 16.1 pg/ml (0-14)
[2024-09-19 14:43] LABS: Partial Thromboplastin Ratio 0.8; Partial Thromboplastin Time 22 Seconds (21-31); Prothrombin Time 11.1 Seconds (9.0-12.0)
--- NOTE | 2024-09-19 16:20 | Emergency Department Note ---
Impression & Plan Elevated troponin, Unresponsive episode, Recurrent syncope ED Provider Note NAME: CHIKIS QUEZADA AGE: 79 SEX: F : 1945 ARRIVES VIA: Ambulance INFORMANT: Patient, ED PROVIDER(S): Sheridan Rosario MD CHIEF COMPLAINT: Unresponsive episode/stroke alert HPI: This is a 81-year-old female presenting for an unresponsive episode. Patient was at lunch when she states she was tired. She then sat up, clench with her hand/arm and shook her about 15-30 seconds. She then relaxed and was not at her baseline. Family states that she was essentially unconscious for an extended period of time. She has episode like this before but not this long. They state that patient was confused after this event. Patient now returned back to baseline until arrival to the ER. Previously when this happened and this appeared to hypomagnesemia and dehydration. They are working with her petrophysicist and primary care physician for further care as well. ROS: See above HPI for pertinent positives & negatives. A total of 10 systems reviewed and were otherwise negative. PAST MEDICAL HISTORY: See Below PAST SURGICAL HISTORY: See Below FAMILY HISTORY: See Below SOCIAL HISTORY: See Below HOME MEDICATIONS: See Below ALLERGIES: See Below VITALS: See Below PHYSICAL EXAMINATION: General: resting comfortably in no acute distress Head: Normocephalic and atraumatic Eyes: Normal inspection, extraocular muscles intact Ear, nose, throat: Normal external exam Neck: Normal range of motion Respiratory: lungs clear to auscultation bilaterally Cardiovascular: Regular rate/rhythm, no murmur GI: soft, nontender, no guarding or rebound Extremities: nontender, moves all extremities Neuro: The patient awake and alert, appropriately conversive, no focal deficits, symmetric faces Skin: Warm, dry, and intact MEDICAL DECISION MAKING: This is 81-year-old female presenting for unresponsive episode. Patient made a stroke alert on arrival. She has currently no neurologic deficits but is confused. Patient episode where she clenched and then unresponsive. She was confused presenting. consider seizure, cardiac event, syncope. -CT imaging of the head reveals no intracranial process at this time. -Bloodwork is reviewed showing no significant leukocytosis creatinine or electrolyte abnormality. Troponin is 16.1. -ECG independently interpreted by me with normal sinus rhythm, rate of 91, normal axis, normal AR, normal QRS, normal QTc, no ST segment elevations consistent with STEMI criteria -Patient has returned to baseline, is no current neurologic deficits. -Due to patient's elevated troponin, will admit for further evaluation including cardiogenic syncope, ACS, TIA -Patient mated to hospital service Differential diagnosis: consider seizure, cardiac event, syncope. ER treatment provided: See below Independent History obtained from: Daughter, Diagnostics interpreted by me: ECG: See above] Cardiac Monitoring: An order was placed for continuous cardiac monitoring. The monitor shows a rate of 83 with sinus rhythm. Laboratory studies: As stated above and show below. Imaging studies: See below. Critical Care Note: I have personally spent 35 minutes of critical care time in the direct management of this patient. This includes bedside care, interpretation of diagnostic studies, and testing, discussion with consultants, patient, and family members, and other required patient management activities. This 35 minutes is in excess of all separately billable procedures. Past Med/Surg History Problem List (Updated 09/21/24 @ 19:54 by Sheridan Rosario MD) Convulsive syncope Elevated troponin (Acute) Hypomagnesemia (Acute) Recurrent syncope (Acute) Unresponsive episode (Acute) Mitral regurgitation Aortic valve stenosis with insufficiency (Acute) Lightheadedness Frequent PVCs Cardiomyopathy Diabetes mellitus type 2, diet-controlled Frequent urinary tract infections ETD (eustachian tube dysfunction) Sensorineural hearing loss (SNHL) of both ears Hyponatremia (Chronic) Bilateral hearing loss (Chronic) History of squamous cell carcinoma in situ of skin Osteoarthritis, knee (Chronic 12/24/14) Medical History Aortic valve sclerosis Malignant neoplasm of uterus Rheumatoid arthritis Bilateral otitis media with spontaneous rupture of eardrum HTN (hypertension) Surgical History History of hernia repair S/P knee replacement S/P hysterectomy S/P cholecystectomy Family History Grandfather Stroke Aunt Cancer Other Asthma No family history of bleeding disorder Denies family history of Ovarian cancer Prostate cancer Heart disease Myocardial infarction Breast cancer Colorectal cancer Hypertension Social History Smoking Status: Never smoker Second Hand Exposure: No; Do You Dip or Chew Tobacco: No; Hx Alcohol Use: No Hx Substance Use: No Preferred Language: Irish Communication Ability: Effective Visual Impairment: No Limitations Hearing Ability: Use of Hearing Aid Editor Department Required: No Beliefs That Will Affect Care: None marital status: Current Living Situation: Spouse Current Living Situation Comment: At home w/ current occupational status: retired 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 How many Children do You have: 6 Feels Safe at Home: Yes Childhood Exposure to Second-Hand Smoke: Yes Diet: regular Dental Care, Regularly: Yes Physical Activity Frequency: Daily Seatbelt Use: always Sunscreen Use: Yes Assistive Devices: Cane, Hearing Aid - Bilateral and Walker Allergies Allergies Allergy/AdvReac Type Severity Reaction Status Date / Time animal dander Allergy coughing, Verified 07/31/24 10:35 sneezing No Known Drug Allergies Allergy Verified 07/31/24 10:35 Home Meds Home Medications Medication Instructions Recorded Confirmed methotrexate sodium 2.5 mg tablet 20 mg PO WEEKLY 09/22/20 09/21/24 potassium chloride 10 mEq 10 meq PO DAILY 10/31/23 09/21/24 tablet,extended release aspirin 81 mg tablet,delayed 81 mg PO DAILY 06/06/24 09/21/24 release calcium carbonate 500 mg PO DAILY 06/06/24 09/21/24 methenamine hippurate 1 gram 1 g PO UD 06/06/24 09/21/24 tablet (Hiprex) multivitamin 1 tab PO DAILY 06/06/24 09/21/24 magnesium 1 tab PO DIRECTED 07/11/24 09/21/24 Previous Rx's Medication Instructions Recorded metoprolol succinate 25 mg 25 mg PO DAILY #90 tabs 10/31/23 tablet,extended release 24 hr nitrofurantoin macrocrystal 50 mg 50 mg PO HS #90 caps 04/23/24 capsule levetiracetam 500 mg tablet 500 mg PO BID 30 days #60 tabs 09/20/24 (Keppra) Results & Data (ED) Vital Signs Vital Signs - 24 hr 09/19/24 13:45 09/19/24 13:45 09/19/24 14:00 Temperature 36.7 C Temperature Source Oral Pulse Rate 84 Pulse Rate [Apical] 70 Respiratory Rate 23 15 Blood Pressure 199/99 H Blood Pressure [Right Arm] 206/93 H Blood Pressure Mean 132 Blood Pressure Mean [Right Arm] 130 Pulse Oximetry 95 97 Oxygen Delivery Method Room Air Room Air Room Air Sepsis New/Unexplained Change in Mental Status No Sepsis Action Taken by Nursing No Action Required 09/19/24 15:03 09/19/24 15:13 Temperature Temperature Source Pulse Rate 69 70 Pulse Rate [Apical] Respiratory Rate 15 Blood Pressure 182/84 H Blood Pressure [Right Arm] Blood Pressure Mean 116 Blood Pressure Mean [Right Arm] Pulse Oximetry 98 Oxygen Delivery Method Room Air Sepsis New/Unexplained Change in Mental Status Sepsis Action Taken by Nursing Laboratory Data 09/20/24 06:42 09/20/24 06:42 Lab Results 09/19/24 09/19/24 09/19/24 Range/Units 13:49 13:52 13:54 WBC 10.90 H (4.8-10.8) K/ul RBC 3.51 L (4.20-5.40) M/uL Hgb 11.6 L (12.0-16.0) g/dl Hct 34.7 L (37.0-47.0) % MCV 98.9 (80.0-100.0) fL MCH 33.0 (25.0-34.0) pg MCHC 33.4 (32.0-36.0) g/dL RDW Std Deviation 51.2 H (36.4-46.3) fL RDW Coeff of Connie 14.3 (11.5-14.5) % Plt Count 204 (130-400) K/uL MPV 9.7 (9.4-12.4) fL Immature Gran % (Auto) 0.9 % Neut % (Auto) 76.4 % Lymph % (Auto) 13.3 % [place] % (Auto) 6.6 % Eos % (Auto) 2.2 % Baso % (Auto) 0.6 % Neut # (Auto) 8.33 H (1.40-6.50) K/uL Lymph # (Auto) 1.45 (1.20-3.40) K/uL [place] # (Auto) 0.72 H (0.11-0.59) K/uL Eos # (Auto) 0.24 (0.00-0.50) K/uL Baso # (Auto) 0.06 (0.00-0.20) K/uL Immature Gran # (Auto) 0.10 (0.01-0.20) K/uL PT 11.1 (9.0-12.0) Seconds INR 1.0 (0.9-1.1) APTT 22 (21-31) Seconds PTT Ratio 0.8 Sodium 132 L (136-145) mmol/L Potassium 3.9 (3.5-5.1) mmol/L Chloride 100 (98-107) mmol/L Carbon Dioxide 26 (21-32) mmol/L Anion Gap 6 (3-11) BUN 11 (6-23) mg/dl Creatinine 0.75 (0.6-1.2) mg/dl Est Cr Clr Drug Dosing Not Reportable eGFR 81.95 BUN/Creatinine Ratio 14.7 (10-20) Glucose 168 H (70-99(Fasting)) mg/dl POC Glucose 167 H (70-99) mg/dl Lactate (0.4-2.0) mmol/L Calcium 9.0 (8.6-10.3) mg/dl Magnesium 1.6 L (1.7-2.4) mg/dl Total Bilirubin 1.1 H (0.2-1.0) mg/dl AST 27 (13-39) U/L ALT 18 (7-52) U/L Alkaline Phosphatase 78 (34-104) U/L Total Creatine Kinase 42 (26-192) U/L Troponin I High Sens 16.1 H (0-14) pg/ml Total Protein 6.8 (6.0-8.3) gm/dl Albumin 3.3 L (3.4-5.0) gm/dl Globulin 3.5 (2.5-4.0) gm/dl Albumin/Globulin Ratio 0.9 (0.9-2) Prolactin 33.59 ng/ml Blood Type O Positive Antibody Screen NEGATIVE 09/19/24 Range/Units 17:10 WBC (4.8-10.8) K/ul RBC (4.20-5.40) M/uL Hgb (12.0-16.0) g/dl Hct (37.0-47.0) % MCV (80.0-100.0) fL MCH (25.0-34.0) pg MCHC (32.0-36.0) g/dL RDW Std Deviation (36.4-46.3) fL RDW Coeff of Connie (11.5-14.5) % Plt Count (130-400) K/uL MPV (9.4-12.4) fL Immature Gran % (Auto) % Neut % (Auto) % Lymph % (Auto) % [place] % (Auto) % Eos % (Auto) % Baso % (Auto) % Neut # (Auto) (1.40-6.50) K/uL Lymph # (Auto) (1.20-3.40) K/uL [place] # (Auto) (0.11-0.59) K/uL Eos # (Auto) (0.00-0.50) K/uL Baso # (Auto) (0.00-0.20) K/uL Immature Gran # (Auto) (0.01-0.20) K/uL PT (9.0-12.0) Seconds INR (0.9-1.1) APTT (21-31) Seconds PTT Ratio Sodium (136-145) mmol/L Potassium (3.5-5.1) mmol/L Chloride (98-107) mmol/L Carbon Dioxide (21-32) mmol/L Anion Gap (3-11) BUN (6-23) mg/dl Creatinine (0.6-1.2) mg/dl Est Cr Clr Drug Dosing eGFR BUN/Creatinine Ratio (10-20) Glucose (70-99(Fasting)) mg/dl POC Glucose (70-99) mg/dl Lactate 0.8 (0.4-2.0) mmol/L Calcium (8.6-10.3) mg/dl Magnesium (1.7-2.4) mg/dl Total Bilirubin (0.2-1.0) mg/dl AST (13-39) U/L ALT (7-52) U/L Alkaline Phosphatase (34-104) U/L Total Creatine Kinase (26-192) U/L Troponin I High Sens (0-14) pg/ml Total Protein (6.0-8.3) gm/dl Albumin (3.4-5.0) gm/dl Globulin (2.5-4.0) gm/dl Albumin/Globulin Ratio (0.9-2) Prolactin ng/ml Blood Type Antibody Screen Administered Medications Discontinued Medications Gadobutrol (Gadobutrol 65ml Vial) 9 ml IV ONCE ONE Stop: 09/19/24 18:51 Last Admin: 09/19/24 18:50 Dose: 9 ml Documented By: LIYAH Magnesium Sulfate/Dextrose (Magnesium Sulfate / D5w) 1 gm in 100 mls @ 50 mls/hr IV ONE ONE Stop: 09/20/24 10:10 Last Infusion: 09/20/24 11:55 Dose: Infused Documented By: Admin: 09/20/24 09:37 Dose: 50 mls/hr Documented By: ALICIA Ioversol (Optiray 320 125ml) 112 ml IV ONCE ONE Stop: 09/19/24 13:32 Last Admin: 09/19/24 13:31 Dose: 112 ml Documented By: GOLDEN Levetiracetam (Levetiracetam 500 Mg Tab) 500 mg PO BID JESUS Stop: 10/20/24 08:59 Last Admin: 09/20/24 09:36 Dose: 500 mg Documented By: ALICIA Levetiracetam (Levetiracetam 500 Mg Tab) 1,000 mg PO ONE ONE Stop: 09/19/24 17:28 Last Admin: 09/19/24 20:06 Dose: 1,000 mg Documented By: ABDIRASHID Magnesium Oxide (Magnesium Oxide 400 Mg Tab) 400 mg PO ONE ONE Stop: 09/19/24 17:46 Last Admin: 09/19/24 21:10 Dose: 400 mg Documented By: ABDIRASHID Magnesium Oxide (Magnesium Oxide 400 Mg Tab) 400 mg PO QAM JESUS Stop: 10/20/24 08:59 Last Admin: 09/20/24 09:43 Dose: 400 mg Documented By: ALICIA Methenamine Hippurate (Methenamine Hippurate 1 Gm Tab) 1 gm PO HS JESUS Stop: 09/24/24 20:59 Last Admin: 09/19/24 21:10 Dose: 1 gm Documented By: ABDIRASHID Metoprolol Succinate (Metoprolol Succ 25mg Ext Rel Tab) 25 mg PO DAILY JESUS Stop: 10/20/24 08:59 Last Admin: 09/20/24 09:36 Dose: 25 mg Documented By: ALICIA Miscellaneous (Patient's Height &/Or Weight Needed) 1 each N/A Q2H JESUS Stop: 10/19/24 17:44 Last Admin: 09/19/24 17:51 Dose: Not Given Documented By: MMN Nitrofurantoin Macrocrystals (Nitrofurantoin Macrocrystal 50 Mg Cap) 50 mg PO HS JESUS Stop: 09/24/24 20:59 Last Admin: 09/19/24 20:06 Dose: 50 mg Documented By: ABDIRASHID Potassium Chloride (Potassium Chloride 10 Meq Tabcr) 10 meq PO DAILY JESUS Stop: 10/20/24 08:59 Last Admin: 09/20/24 09:37 Dose: 10 meq Documented By: DW Imaging Data Radiologist's Impression: Head CT 09/19/24 13:26 CT angio head w con, CT head/brain wo con CLINICAL HISTORY: 79 years-old Female with neuro deficit, acute stroke suspected. Acute stroke like symptoms COMPARISON STUDY: CT neck of same day, CTA head and CT head 07/11/2024 TECHNIQUE: Unenhanced axial CT scan of the brain is performed. Subsequently, following the IV administration of 112 cc of Optiray, CT angiogram of the brain was performed from the skull base to the vertex. Images are reviewed in the axial, sagittal, and coronal planes. 3-D MIPS images are created and assessed. IV contrast was administered without complication. All measurements were obtained according to NASCET criteria. A dose lowering technique was utilized adhering to the principles of ALARA. FINDINGS: CT BRAIN: There is no acute intracranial hemorrhage, midline shift, hydrocephalus, intracranial mass, territorial ischemia or abnormal extra-axial collections. No abnormal intra-axial or extra-axial enhancement. Involutional changes with chronic microvascular ischemic disease. Unchanged 8 mm hypodensity within the anterior medial right thalamus suggestive of a chronic lacunar infarct. Cerebral vascular calcifications. Mastoid air cells and middle ear cavities are clear. No calvarial fracture. Paranasal sinuses are clear. CT ANGIOGRAM OF THE BRAIN: The imaged bilateral internal carotid arteries are patent. The bilateral anterior and middle cerebral arteries are also patent. The vertebrobasilar system and posterior cerebral arteries are widely patent. Developmentally diminutive right vertebral artery terminates into the right PICA. Mild to moderate multifocal stenoses of the intracranial arteries. There is no aneurysm, high-grade stenosis, or proximal branch occlusion identified. Dural sinuses appear patent. IMPRESSION: 1. No acute intracranial abnormality. 2. Unremarkable CTA of the head. ACT 112: Negative or not required by law. The above report was generated using voice recognition software. It may contain grammatical, syntax or spelling errors. Electronically signed by: Carl Germain M.D. 09/19/2024 2:00 PM Head CTA 09/19/24 13:26 CT angio head w con, CT head/brain wo con CLINICAL HISTORY: 79 years-old Female with neuro deficit, acute stroke suspected. Acute stroke like symptoms COMPARISON STUDY: CT neck of same day, CTA head and CT head 07/11/2024 TECHNIQUE: Unenhanced axial CT scan of the brain is performed. Subsequently, following the IV administration of 112 cc of Optiray, CT angiogram of the brain was performed from the skull base to the vertex. Images are reviewed in the axial, sagittal, and coronal planes. 3-D MIPS images are created and assessed. IV contrast was administered without complication. All measurements were obtained according to NASCET criteria. A dose lowering technique was utilized adhering to the principles of ALARA. FINDINGS: CT BRAIN: There is no acute intracranial hemorrhage, midline shift, hydrocephalus, intracranial mass, territorial ischemia or abnormal extra-axial collections. No abnormal intra-axial or extra-axial enhancement. Involutional changes with chronic microvascular ischemic disease. Unchanged 8 mm hypodensity within the anterior medial right thalamus suggestive of a chronic lacunar infarct. Cerebral vascular calcifications. Mastoid air cells and middle ear cavities are clear. No calvarial fracture. Paranasal sinuses are clear. CT ANGIOGRAM OF THE BRAIN: The imaged bilateral internal carotid arteries are patent. The bilateral anterior and middle cerebral arteries are also patent. The vertebrobasilar system and posterior cerebral arteries are widely patent. Developmentally diminutive right vertebral artery terminates into the right PICA. Mild to moderate multifocal stenoses of the intracranial arteries. There is no aneurysm, high-grade stenosis, or proximal branch occlusion identified. Dural sinuses appear patent. IMPRESSION: 1. No acute intracranial abnormality. 2. Unremarkable CTA of the head. ACT 112: Negative or not required by law. The above report was generated using voice recognition software. It may contain grammatical, syntax or spelling errors. Electronically signed by: Carl Germain M.D. 09/19/2024 2:00 PM Neck CTA 09/19/24 13:26 CT ANGIOGRAPHY OF THE NECK WITH CONTRAST CLINICAL HISTORY: neuro deficit, acute stroke suspected COMPARISON STUDY: CTA of the neck July 11, 2024. Technique: CT angiography of the carotid and vertebral arteries was obtained using Optiray and 3D reconstruction on an independent workstation. NASCET criteria was utilized. Automated exposure control was utilized for the study. A dose lowering technique was utilized adhering to the principles of ALARA. CT DOSE: 1173.18 mGy.cm Findings: No cervical spine fractures are present. There is no cervical lymphadenopathy. The bilateral common carotid, cervical internal carotid and vertebral arteries are patent. The left vertebral artery is dominant. The right vertebral artery is somewhat diminutive on a congenital basis. There is no dissection or aneurysm within the neck. There is mild plaque within the bilateral carotid bifurcations without stenosis. IMPRESSION: No stenosis or dissection within the major vessels of the neck. ACT 112: Negative or not required by law. Electronically signed by: Braydon Patten M.D. 09/19/2024 2:05 PM Discharge Plan Visit Data Chief Complaint: Stroke Alert Stated Complaint: STROKE ALERT ED Provider: Sheridan Rosario Discharge Problem: Elevated troponin, Unresponsive episode, Recurrent syncope Patient Disposition: Admitted As Inpatient Discharge Instructions Interventions: ED Discharge Assessment Last Done: 09/19/24 18:26
--- NOTE | 2024-09-19 16:22 | History & Physical Report ---
Date of Service September 19, 2024 Assessment & Plan (1) Unresponsive episode: Plan: - CT and CTA head unremarkable on admission - CK and lactate negative, prolactin mildly elevated - MRI and EEG ordered - consult neurology - spoke with Dr. Campos on admission recommending loading with Keppra - 1G Keppra on admission; 500 BID starting 09/20 - monitor on telemetry (2) Hypomagnesemia: Plan: Chronic - 1.6 on admission - continue home supplement + additional 400 mg PO on admission (3) Elevated troponin: Plan: - 16.1 on admission - EKG showing NSR, no ischemic changes - will trend overnight - monitor on telemetry (4) Diabetes mellitus type 2, diet-controlled: Plan: Diet controlled at home - Most recent A1C 6.7% - defer insulin at this time - T2DM diet (5) Frequent urinary tract infections: Plan: - continue home Methenamine and nitrofurantoin for chronic UTIs - UA ordered Plan Chronic stable diagnoses: aortic stenosis - continue to follow with cardiology outpatient osteoarthritis - continue Methotrexate weekly on Mondays HTN - continue home metoprolol VTE ppx: SCDs and Teds Diet: T2DM and hearth healthy diet Code status: full Dispo: pcu/tele Admission and Anticipated Discharge Date Admission Date: 09/19/24 History of Present Illness Chief Complaint: seizure-like symptoms Primary Care Provider: Mary Lam MD Patient is a 79-year-old female with a past medical history of chronic hypomagnesia, T2DM, cardiomyopathy, mitral regurgitation, aortic valve stenosis. She presents today due to 2 unresponsive episodes that occurred at a restaurant today. She came in as a stroke alert, CT head negative. Patient cannot remember the episode and the following history was obtained from her . He stated that he was not with her at the restaurant, her daughter was but this is what she reportedthe patient was sitting at the table and fell forward onto the table she then began with a shaking episode. There was a bioprocessing manufacturing technician at the restaurant that helped set the patient up. The patient then had a second episode of shaking. She had unconsciousness/confusion until she came to the hospital via EMS. Even after arrival she still had confusion, not knowing where she was, but has now improved. The patient's family stated that this is the fourth time it has happened. The previous 2 times she just had unresponsiveness with a clenched fist and quickly came back to it. The patient has been following up with cardiology after her recent discharge. They are working on getting her Holter monitor, but have not yet completed it. Patient does endorse feeling dizzy this morning, although chronic for her (improved with recent d/c of Entresto). She has also had recent ankle edema since this weekend. This is chronic for her and she wears compression socks at home. Patient denies headache, vision changes, rhinorrhea, sore throat, cough, dyspnea, dyspnea on exertion, chest pain, abdominal pain, nausea, vomiting, diarrhea, constipation, dysuria, hematuria, numbness, tingling. She lives at home with her . She does not use nicotine or drink alcohol. Given she has no current cancer, no previous VTE, CVA, SD, COPD, asthma, or kidney disease. Her diabetes is currently diet controlled. She does not use oxygen at baseline. She took her home medications morning. She wishes to be full code at this time. Patient's and daughter updated at bedside. Allergies Allergy/AdvReac Type Severity Reaction Status Date / Time animal dander Allergy coughing, Verified 07/31/24 10:35 sneezing No Known Drug Allergies Allergy Verified 07/31/24 10:35 Home Medications Medication Instructions Recorded Confirmed Type methotrexate sodium 2.5 mg tablet 20 mg PO WEEKLY 09/22/20 09/19/24 History metoprolol succinate 25 mg 25 mg PO DAILY #90 tabs 10/31/23 09/19/24 Rx tablet,extended release 24 hr potassium chloride 10 mEq 10 meq PO DAILY 10/31/23 09/19/24 History tablet,extended release nitrofurantoin macrocrystal 50 mg 50 mg PO HS #90 caps 04/23/24 09/19/24 Rx capsule aspirin 81 mg tablet,delayed 81 mg PO DAILY 06/06/24 09/19/24 History release calcium carbonate 500 mg PO DAILY 06/06/24 09/19/24 History methenamine hippurate 1 gram 1 g PO UD 06/06/24 09/19/24 History tablet (Hiprex) multivitamin 1 tab PO DAILY 06/06/24 09/19/24 History magnesium 1 tab PO DIRECTED 07/11/24 09/19/24 History sacubitril 24 mg-valsartan 26 mg 1 tab PO UD 09/19/24 09/19/24 History tablet (Entresto) Past Med/Surg History Problem List (Updated 09/19/24 @ 17:42 by Cecilia Mahmood PA-C) Elevated troponin Hypomagnesemia (Acute) Recurrent syncope (Acute) Unresponsive episode (Acute) Mitral regurgitation Aortic valve stenosis with insufficiency (Acute) Lightheadedness Frequent PVCs Cardiomyopathy Diabetes mellitus type 2, diet-controlled Frequent urinary tract infections ETD (eustachian tube dysfunction) Sensorineural hearing loss (SNHL) of both ears Hyponatremia (Chronic) Bilateral hearing loss (Chronic) History of squamous cell carcinoma in situ of skin Osteoarthritis, knee (Chronic 12/24/14) Medical History Aortic valve sclerosis Malignant neoplasm of uterus Rheumatoid arthritis Bilateral otitis media with spontaneous rupture of eardrum HTN (hypertension) Surgical History History of hernia repair S/P knee replacement S/P hysterectomy S/P cholecystectomy Family History Grandfather Stroke Aunt Cancer Other Asthma No family history of bleeding disorder Denies family history of Ovarian cancer Prostate cancer Heart disease Myocardial infarction Breast cancer Colorectal cancer Hypertension Social History Smoking Status: Never smoker Second Hand Exposure: No; Do You Dip or Chew Tobacco: No; Hx Alcohol Use: No Hx Substance Use: No Preferred Language: Upper Sorbian Communication Ability: Effective Visual Impairment: No Limitations Hearing Ability: Use of Hearing Aid Sign Painter Helper Required: No Beliefs That Will Affect Care: None marital status: Current Living Situation: Spouse Current Living Situation Comment: At home w/ current occupational status: retired 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 Non-toxic appearing. HEENT- EOMI, mucous membranes moist. Hearing grossly intact. Heart-normal S1 and S2. No murmurs, rubs or gallops. Lungs-clear bilaterally, no respiratory distress, no accessory muscle use. Abdomen-normal bowel sounds and soft. No ascites noted. Non-tender. Extremities- no clubbing, cyanosis. Mild edema B/L ankles. Strength 5/5. Psychiatric-normal affect. Neurologic: PERRL, EOMI, accommodation nl, no face palsy, no dysarthria CN's II-XI intact bilaterally and moves all extremities; no focal motor deficits Motor/Sensory: no sensory deficit Results & Data Results & Data Vital Signs (Past 12 Hours) Vital Signs Temp Pulse Pulse Resp BP BP Pulse Ox 09/19/24 15:13 70 09/19/24 15:03 69 15 182/84 H 98 09/19/24 14:00 70 15 206/93 H 97 09/19/24 13:45 09/19/24 13:45 36.7 C 84 23 199/99 H 95 O2 Del Method 09/19/24 15:13 09/19/24 15:03 Room Air 09/19/24 14:00 Room Air 09/19/24 13:45 Room Air 09/19/24 13:45 Room Air Code Status & VTE Plan Code Status Full code VTE Prophylaxis Plan VTE Prophylaxis will be ordered: Yes Supervising Physician Co-Signing Physician Notes Patient seen and examined, chart reviewed, case discussed with Cecilia Alvarez PA-C and I agree with the assessment and plan as above except as otherwise noted Labs and images reviewed Sue is a 79-year-old female with a past medical history of unresponsive episodes, hypomagnesemia, type II DM who presents with a recurrent episode where she lost consciousness, had reported tonic-clonic activity and shaking, and had a much longer period of recovery to her normal mentation and appeared postictal on initial ER provider assessment. She was sitting at the time, suddenly had a shaking spell and slumped forward. She did not have urinary or fecal incontinence. She had been following with cardiology in the outpatient for recurrent syncope and frequent PVCs, DSE was negative for ischemia. At cardiology follow-up she was pending arrangement of an implantable loop recorder and Entresto was held due to lightheadedness.Patient seen following transfer to floor. Feels well and has returned back to her normal mentation, but her and her family note that she was simply eating when this happened and did have shaking and took much longer to return to her normal mental status and was c onfused for a prolonged period. Unfortunately have not been able to have her loop recorder set up so is unclear what her underlying rhythm was at time of event. EEG 09/2023 had a negative MRI/unremarkable EEG at that time. EKG day of admission with nonspecific ST changes and generally poor quality tracing but generally similar to prior, without acute territorial ST segment changes greater than 1 mm, and without heart block. Patient is again hypomagnesemic at 1.6. Due to increased length of confusion and prolonged duration of recovery with her episode today and high degree of family concern for worsening symptoms was recommended for observation on telemetry for arrhythmia, and reevaluation of seizure due to appearing postictal on initial ER assessment. Lactate, prolactin, CK ordered at time of admission. Seizure protocol MRI and repeat EEG are pending. Reviewed with Neurology. Agree w/ repeat MRI, EEG, and +Keppra load. Appreciate recommendations. Agree with above PG Care Time/CCT Total # of Minutes Spent Total Time Spent with Patient: Total time spent is greater than 50% in coordination of care (as documented) at patient's floor/unit and/or counseling patient: Coding Level of Care Code 14592 INT INP/OBS CARE 3/75MIN Diagnoses Unresponsive episode R40.4 Hypomagnesemia E83.42 Elevated troponin R79.89 Diabetes mellitus type 2, diet-controlled E11.9 Frequent urinary tract infections N39.0
[2024-09-19 17:21] LABS: Creatine Kinase 42 U/L (26-192)
[2024-09-19] MEDS: Patient's HEIGHT &/or WEIGHT Needed SCH (17:51)
[2024-09-19] MEDS: GADOBUTROL 65ML VIAL IV ONE (18:50)
[2024-09-19] MEDS ORDERED: POLYETHYLENE (MIRALAX) 17 GM PACK PO PRN (19:30)
[2024-09-19] MEDS ORDERED: ACETAMINOPHEN 325 MG TAB PO PRN (19:30)
[2024-09-19] MEDS: nitrofurantoin macrocrystaL 50 MG CAP PO SCH (20:06)
[2024-09-19] MEDS: levETIRAcetam 500 MG TAB PO ONE (20:06)
--- NOTE | 2024-09-19 21:07 | Magnetic Resonance Report ---
Clinical History: Confusion. Possible seizure. History of melanoma and uterine cancer Technique: Multiple T1 and T2-weighted magnetic resonance images were obtained of the brain both before and after the administration of 9 cc of Gadavist intravenous gadolinium contrast Comparison is made to the prior MRI dated 10/17/2023 Findings: There is no sign of acute infarction with normal-appearing diffusion weighted images. There is cerebral atrophy, within expected limits for the patient's age. There are worsened areas of increased T2 signal intensity within the periventricular white matter, most likely due to chronic small vessel ischemic disease. There are prominent perivascular spaces within the basal ganglia bilaterally. There is an old infarct of the anterior aspect of the right thalamus. There is also an unchanged suspected small old infarct at the junction of the left frontal and left parietal lobes No mass lesion or other area of abnormal enhancement is identified. There is no intracranial hemorrhage or other fluid collection. No midline shift or other form of herniation is seen. There is no hydrocephalus. The pituitary gland appears normal. Normal flow-voids are seen within the arteries of the [id number]. The orbits and paranasal sinuses appear normal. There is partial opacification of the right mastoid air cells Impression: 1. Extensive white matter abnormalities, worsened since the prior study. This is most likely due to chronic small vessel ischemic disease 2. 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 No sign of acute infarction or mass lesion 4. Partial opacification of the right mastoid air cells, which may be due to inflammatory mastoiditis Electronically signed by Isma Hines 09-19-2024 7:17 PM
[2024-09-19] MEDS: MAGNESIUM OXIDE 400 MG TAB PO ONE (21:10)
[2024-09-19] MEDS: METHENAMINE HIPPURATE 1 GM TAB PO SCH (21:10)
--- OUTSIDE RECORDS SUMMARY | 2024-09-20 01:52 | External Medical Summary | Summary of Care ---
Author Name Unknown Organization [facility] Address [address] [place] [address] Phone [phone] Care Team Providers Care Wagon Driver Salesperson Name Role Phone Mary Lam MD Primary Care Provider Reason for Visit * Reason Comments eRx-Medication Refill Encounter Details Date Type Department Care Team (Late st Contact Info) Description 08/25/2024 Refill Rheumatology [address] [place] [address] Hiram Cooley MD [facility] [place] [id number] Rheumatoid arthritis involving multiple sites with positive rheumatoid factor (HCC) Allergies Active Allergy Reactions Criticality Noted Date Comments Other - Environmental 10/21/2004 Dogs and cats, eyes getting itchy and watery, has dogs and a cat, pt taking allergy medication documented as of this encounter (statuses as of 08/30/2024) Medications Medication Sig Dispensed Refills Start Date End Date Status ASPIRIN 81 MG PO TABS one tab by mouth daily 100 Tab 0 12/30/2014 Active MEDICAL INSTRUCTIONSIndica tions:Arthritis, rheumatoid (HCC) VNA consult for nursing, home PT/OT. dx: status bilateral knee replacements, DM, HTN, RA 1 Each 1 01/02/2015 Active CALCIUM CARBONATE 600 MG PO TABSIndications:Ar thritis, rheumatoid (HCC) one daily 30 Tab 0 01/02/2015 Active MULTI-VITAMIN PO TABSIndications:Kn ee joint replacement status 1 daily 100 Tab 0 01/02/2015 Active Atenolol 25 MG Oral Tablet (Tenormin) 1 Tablet. Two tabs daily 5 07/25/2015 Active Lisinopril 40 MG Tablet Take 1 Tablet by mouth in the morning. 5 05/30/2016 Active folic acid 1 MG Tablet TAKE 1 TAB BY MOUTH DAILY. 30 Tab 2 01/06/2017 Active Cetirizine HCl (ZYRTEC ALLERGY) 10 MG Capsule Take 1 Capsule by mouth in the morning. Active Ascorbic Acid (VITAMIN C) 1000 MG Tablet Take 1 Tablet by mouth in the morning. Active Cinnamon 500 MG Capsule Take 1 Capsule by mouth in the morning. Active Potassium Chloride Joaquina ER 20 MEQ TBCR Take 1 Tablet by mouth in the morning. Active Alendronate Sodium 70 MG Oral Tablet (Fosamax)Indicatio ns:Senile osteoporosis TAKE 1 TABLET BY MOUTH ONE TIME PER WEEK 12 Tablet 3 01/31/2023 Active Methotrexate Sodium 2.5 MG Oral TabletIndications: Rheumatoid arthritis involving multiple sites with positive rheumatoid factor (HCC) TAKE 8 TABS BY MOUTH ONCE A WEEK (SPLIT DOSE, TAKE 4 TABS IN MORNING & TAKE 4 TABS WITH DINNER) 32 Tablet 08/27/2024 Active Methotrexate Sodium 2.5 MG Oral TabletIndications: Rheumatoid arthritis involving multiple sites with positive rheumatoid factor (HCC) TAKE 8 TABS BY MOUTH ONCE A WEEK (SPLIT DOSE, TAKE 4 TABS IN MORNING & TAKE 4 TABS WITH DINNER) 96 Tablet 05/23/2024 4 Discontinued documented as of this encounter (statuses as of 08/30/2024) Active Problems Problem Noted Date Diagnosed Date Senile osteoporosis 01/12/2019 Advance directive on file 10/26/2016 Overview: Yes, Patient instructed to provide copy of advance directive for provider to review and to be scanned into Electronic Medical Record Rheumatoid arthritis involvi ng multiple sites with positive rheumatoid factor 05/27/2016 S/P knee replacement 01/14/2015 Knee joint replacement status 12/30/2014 Murmur, cardiac 10/31/2014 HTN, GOAL BELOW 140/80 07/03/2012 Overview: Per HTN Protocol #27. Severe obesity with body mas s index (BMI) of 35.0 to 39.9 with serious comorbidity 02/09/2010 Overview: Per Obesity Taxonomy ICD-10 update of inactive diagnosis DYSLIPIDEMIA, GOAL LDL BELOW 100 10/27/2009 Overview: Per Lipid Taxonomy. Type 2 diabetes mellitus wit h hemoglobin A1c goal of less than 7.0% 09/11/2009 Overview: Per Diabetes Taxonomy. ICD-10 update of inactive term Encounter for long-term (current) use of medicat ions 03/18/2009 Malignant neoplasm of corpus uteri 09/20/2007 Allergic rhinitis 10/21/2004 documented as of this encounter (statuses as of 08/30/2024) Resolved Problems Problem Noted Date Diagnosed Date Resolved Date Encounter for examination fo r normal comparison and control in clinical research program 10/26/2012 05/15/2014 Overview: Diagnosis changed due to Research Module. Go to Snapshot for study details. HTN, GOAL BELOW 130/80 10/07/200907/06 Overview: Modified per HTN protocol #16. ARTHRITIS,RHEUMATOID 11/12/2008 016 Type 2 diabetes mellitus wit h hemoglobin A1c goal of less than 7.0% 08/08/2008 09/11/2009 Overview: Per Diabetes Taxonomy. ICD-10 update of inactive term Examination following surgery 11/05/2007 01/03/2013 Abdominal pain, generalized 11/03/2007 06/26/2013 Morbid obesity, BMI not known 09/22/2007 02/09/2010 Overview: Per Obesity Taxonomy HTN, goal to be determined 09/13/2005 1 12/07/2008 Overview: Modified per HTN protocol #16. Allergic rhinitis 09/13/2005 09/13/2005 DM type 2, not at goal 05/08 Dyslipidemia, goal to be determined 10/27/2009 Overview: Per Lipid Taxonomy. documented as of this encounter (statuses as of 08/30/2024) Immunizations Name Administration Dates Next Due Pneumococcal Conjugate Vacc, 13 Valent (Prevnar) 10/19/2019 Pneumococcal Polysaccharide PPV23 (Pneumovax) 11/18/2011,07/14/2006 Seasonal Influenza Vac., MDV , IM, 0.5 mL (Fluzone) 10/26/2015,10/15/2014,10/04/2013,09/29,10/14/2011,10/13/2010,08/15/2009 ,09/24/2008,09/22/2007 Seasonal Influenza, QUAD, wi th Preserv, 6 mons & Above, 0.5 mL, IM 09/19/2019 Seasonal Influenza, Trivalen t, Adjuvanted, 65+ YRS, PF, (Fluad) 08/14/2020,09/12/2017 TDAP, Age 7 and older, IM (Adacel) 08/08/2008 documented as of this encounter Social History Tobacco Use Types Packs/Day Years Used Date Smoking Tobacco: Never Smokeless Tobacco: Never Alcohol Use Standard Drinks/Week Comments No 0 (1 standard drink = 0.6 oz pur e alcohol) Utilities Answer Date Recorded Do you have trouble paying y our heating, water, or electric bill? (Adult - for ages 18 years and over) Not on file 05/01/2024 Is your family able to pay t he heat, water, or electric bill? (Household - for ages 0-17 years) Not on file 05/01/2024 Does your family have access to good internet? (Household - for ages 0-17 years) Not on file 05/01/2024 Social Connections Answer Date Recorded How often do you feel lonely or isolated from those around you? (Adult - for ages 18 years and over) Not on file 05/01/2024 Sex and Gender Information Value Date Recorded Sex Assigned at Not on file Gender Identity Not on file Sexual Orientation Not on file Job Start Date Occupation Industry Not on file Not on file Not on file documented as of this encounter Miscellaneous Notes * Telephone Encounter - Tio, Care Gaps - 08/30/2024 10:17 AM EDT Received message from [facility] regarding patient needing labs. Patient was notified. Successfully contacted patient and provided [facility] message. * Telephone Encounter - Carl Fernandez RPh - 08/27/2024 10:53 AM EDTSigned Prescriptions: Disp Refills Methotrexate Sodium 2.5 MG Oral Tablet 32 Tab*0 Sig: TAKE 8 TABS BY MOUTH ONCE A WEEK (SPLIT DOSE, TAKE 4 TABS IN MORNING & TAKE 4 TABS WITH DINNER) Authorizing Provider: HIRAM COOLEY Ordering User: CARL FERNANDEZ * Telephone Encounter - Carl Fernandez RPh - 08/27/2024 10:52 AM EDT Provided 90 days supply with 0 refill(s). Per refill protocol patient should have updated labs on file within past 3 months. Reviewed AMP report, Care Gaps/Health Maintenance, medications list, and for any routine labs typically ordered for this patient. Lab orders placed. Please contact patient to advise of labs ordered for blood draw. Fasting is not required. Advise toobtain labs before requesting the next refill. Thanks, J Luis Fernandez, PharmD Clinical Pharmacist [facility] ([facility]) [phone] 08/27/2024 10:52 AM * Telephone Encounter - Carl Fernandez RPh - 08/27/2024 10:51 AM EDT Rheumatology: Refill Request(s) Per review of the refill parameters, Medication was given as a 3-month supply d/t Labs overdue- labs ordered previously and informed patient. Carl Fernandez RPh [facility] Clinical Pharmacist Rheumatology Department 08/27/2024,10:51 AM * Telephone Encounter - Abdirahman Kinsey - 08/25/2024 1:49 PM EDTPending Prescriptions: Disp Refills Methotrexate Sodium 2.5 MG Oral Tablet [Ph*96 Tab*0 Sig: TAKE 8 TABS BY MOUTH ONCE A WEEK (SPLIT DOSE, TAKE 4 TABS IN MORNING & TAKE 4 TABS WITH DINNER) * Telephone Encounter - Abdirahman Kinsey - 08/25/2024 1:48 PM EDT Did you pend patient's preferred pharmacy and medication before forwarding?yes Pharmacy: [id number] [id number] [facility] Pending Prescriptions: Disp Refills Methotrexate Sodium 2.5 MG Oral Tablet [P*96 Tab*0 Sig: TAKE 8 TABS BY MOUTH ONCE A WEEK (SPLIT DOSE, TAKE 4 TABS IN MORNING & TAKE 4 TABS WITH DINNER) Last Visit: 10/07/2023 (in office), Visit date not found (telemedicine) Next Visit: 10/08/2024 If no future appointments scheduled, and last appointment is greater than a year ago, please schedule patient for a follow-up appointment Last date the medication was ordered: 05/23/2024 Is this request for a controlled substance?No Urine Drug Screen:No results found for this or any previous visit. Patient Phone Numbers Labs: Lab Results Component Value Date/Time CREAT 0.78 04/30/2024 12:00 AM CREAT 0.8 08/08/2020 08:40 AM POTASSIUM 4.1 04/30/2024 12:00 AM POTASSIUM 4.3 08/08/2020 08:40 AM TSH 0.76 06/10/2014 10:00 AM LDL 139 (H) 02/04/2017 08:05 AM LDL NOT APPLICABLE 02/04/2017 08:05 AM LDLCALC 94 04/30/2024 12:00 AM ALT 27 10/07/2023 11:03 AM ALT 20 08/08/2020 08:40 AM HGBA1C 6.8 (H) 02/04/2017 08:05 AM documented in this encounter Plan of Treatment Upcoming Encounters Date Type Department Care Team (Late st Contact Info) Description 10/08/2024 10:40 AM EST Office Visit Rheumatology [address] [place] [address] Hiram Cooley MD [address] [facility] [place], [place] [address] Health Maintenance Due Date Last Done Comments COVID-19 Vaccine (#1) 1950 Zoster Vaccines (1 of 2) 1966 Albumin/Creatinine Ratio 10/15/2015 014, 10/02/2013, 09/15/2012, Additional history exists Diabetic Foot Exam 10/15/2015 10/15/2014, 1 12/04/2012, 09/29/2012, Additional history exists HbA1c 08/07/2017 02/04/2017, 06/14, 12/02/2015, Additional history exists Depression Screening 10/12/2017 10/12/2016 DTap/Tdap Vaccines (2 - Td or Tdap) 08/08/2018 08/08/2008 Diabetic Eye Exam 10/05/2022 10/05/2021, , 06/30/2017, Additional history exists Influenza Vaccine (FLU shot) (#1) 2024 09/14/2021, 08/14/2020, 09/20/2019, Additional history exists DXA Scan 03/14/2025 03/14/2023, 11/15, 11/30/2017, Additional history exists GFR 04/30/2025 04/30/2024, 09/15, 02/22/2023, Additional history exists Colonoscopy Discontinued 02/25/2005 Colorectal Cancer Screening Discontinued Pneumococcal Vaccine: 65+ Years Completed 11/01/2019, 10/19/2019, 10/26/2015, Additional history exists VITAMIN D LEVEL ONCE IN A LIFETIME-USE SMARTSET# 00190 Completed 03/01/2022, 01/18/2020, 01/12/2019, Additional history exists Cologuard Discontinued Fecal Occult Blood Test Discontinued HPV (Gardasil) Vaccine Aged Out No lo nger eligible based on patient's age to complete this topic Hepatitis B Vaccine Aged Out No longe r eligible based on patient's age to complete this topic MENINGOCOCCAL (MENACTRA/MENVEO) Aged Out No longer eligible based on patient's age to complete this topic Sigmoidoscopy Discontinued documented as of this encounter Medical Devices Not on filedocumented as of this encounter Visit Diagnoses Diagnosis Rheumatoid arthritis involving multiple sites with positive rheumatoid factor (HCC) documented in this encounter Advance Directives * Full Code (Latest Code Status on File) Date Activated Date Inactivated Comments 11/03/2007 1:48 PM 11/06/2007 12:28 PM Care Teams Wagon Driver Salesperson Relationship Specialty Start Date End Date Mary Lam MD [address] [place] [address] PCP - General Family Medicine 05/23/15 documented as of this encounter
[2024-09-20 07:19] LABS: Hematocrit (blood only) 31.7 % (37.0-47.0); Hemoglobin 10.6 g/dl (12.0-16.0); Mean Corpuscular Hgb Conc 33.4 g/dL (32.0-36.0); Mean Corpuscular Volume 98.8 fL (80.0-100.0); Mean Platelet Volume 9.6 fL (9.4-12.4); Platelet Count 196 K/uL (130-400); RDW Standard Deviation 50.4 fL (36.4-46.3); Red Blood Count 3.21 M/uL (4.20-5.40); White Blood Count 6.37 K/ul (4.8-10.8)
[2024-09-20 07:40] LABS: BUN Creatinine Ratio 15.4 (10-20); Calcium 8.6 mg/dl (8.6-10.3); Creatinine Clr Calc Pharmacy 79.6 ml/min; Magnesium 1.6 mg/dl (1.7-2.4); Potassium 3.8 mmol/L (3.5-5.1)
[2024-09-20] MEDS ORDERED: INFLUENZA VACC TS2024-25(65y+)/PF (IIV3) 0.5mL Syr IM ONE (08:00)
[2024-09-20 08:28] LABS: Appearance Urine Clear (Clear); Bacteria Urine Automated None Seen (None Seen); Bilirubin Urine Negative (Negative); Blood Urine Negative (Negative); Cast Urine Automated 0-2 /lpf (0-2); Color Urine Yellow; Epithelial Cell Urine Auto 0-2 /hpf (0-2); Glucose Urine UA Negative (Negative); Ketones Urine Negative (Negative); Leukocyte Esterase Urine 2+ (Negative); Nitrite Urine Negative (Negative); Protein Urine Negative (Negative); RBC Urine Automated 0-2 /hpf (0-2); Specific Gravity Urine 1.019 (1.000-1.030); Urobilinogen Urine Negative (Negative)
--- NOTE | 2024-09-20 08:56 | Electroencephalogram ---
EEG Procedure Note Date of Service September 20, 2024 Start / End Times Start Time: 6:06 AM End Time: 6:26 AM Referring Physician Ela History Seizure-like episodes, syncopal episodes Home Medication List Medication Instructions Recorded Confirmed Type methotrexate sodium 2.5 mg tablet 20 mg PO WEEKLY 09/22/20 09/19/24 History metoprolol succinate 25 mg 25 mg PO DAILY #90 tabs 10/31/23 09/19/24 Rx tablet,extended release 24 hr potassium chloride 10 mEq 10 meq PO DAILY 10/31/23 09/19/24 History tablet,extended release nitrofurantoin macrocrystal 50 mg 50 mg PO HS #90 caps 04/23/24 09/19/24 Rx capsule aspirin 81 mg tablet,delayed 81 mg PO DAILY 06/06/24 09/19/24 History release calcium carbonate 500 mg PO DAILY 06/06/24 09/19/24 History methenamine hippurate 1 gram 1 g PO UD 06/06/24 09/19/24 History tablet (Hiprex) multivitamin 1 tab PO DAILY 06/06/24 09/19/24 History magnesium 1 tab PO DIRECTED 07/11/24 09/19/24 History sacubitril 24 mg-valsartan 26 mg 1 tab PO UD 09/19/24 09/19/24 History tablet (Entresto) Inpatient Medication List Methenamine Hippurate (Methenamine Hippurate 1 Gm Tab) 1 gm PO [facility] Stop: 09/24/24 20:59 Last Admin: 09/19/24 21:10 Dose: 1 gm Documented By: ABDIRASHID Nitrofurantoin Macrocrystals (Nitrofurantoin Macrocrystal 50 Mg Cap) 50 mg PO [facility] Stop: 09/24/24 20:59 Last Admin: 09/19/24 20:06 Dose: 50 mg Documented By: ABDIRASHID Discontinued Medications Gadobutrol (Gadobutrol 65ml Vial) 9 ml IV ONCE ONE Stop: 09/19/24 18:51 Last Admin: 09/19/24 18:50 Dose: 9 ml Documented By: LIYAH Ioversol (Optiray 320 125ml) 112 ml IV ONCE ONE Stop: 09/19/24 13:32 Last Admin: 09/19/24 13:31 Dose: 112 ml Documented By: GOLDEN Levetiracetam (Levetiracetam 500 Mg Tab) 1,000 mg PO ONE ONE Stop: 09/19/24 17:28 Last Admin: 09/19/24 20:06 Dose: 1,000 mg Documented By: ABDIRASHID Magnesium Oxide (Magnesium Oxide 400 Mg Tab) 400 mg PO ONE ONE Stop: 09/19/24 17:46 Last Admin: 09/19/24 21:10 Dose: 400 mg Documented By: ABDIRASHID Miscellaneous (Patient's Height &/Or Weight Needed) 1 each N/A Q2H JESUS Stop: 10/19/24 17:44 Last Admin: 09/19/24 17:51 Dose: Not Given Documented By: MMN Description This is a 21 electrode EEG with a single channel dedicated to limited EKG. The electrodes were placed in accordance with the International 10-20 system. There is a posterior dominant rhythm of 9 to 10 Hz which is symmetrically distributed and attenuates with eye opening. There is a normal anterior to posterior organization. Photic stimulation is unremarkable, hyperventilation is not performed. There is a symmetric frontal beta rhythm. There is admixed generalized polymorphic theta activity as well as a few vertex waves. There is no focal slowing. There are no epileptiform abnormalities. Interpretation Normal-appearing awake/sleepy EEG. [facility] EEG Procedure Codes Indication for Procedure (1) Recurrent syncope: (2) Unresponsive episode: Neurology Neurology: [address]109 EEG include record awake & sleepy
[2024-09-20] MEDS: METOPROLOL SUCC 25MG EXT REL TAB PO SCH (09:36)
[2024-09-20] MEDS: levETIRAcetam 500 MG TAB PO SCH (09:36)
[2024-09-20] MEDS: POTASSIUM CHLORIDE 10 MEQ TABCR PO SCH (09:37)
[2024-09-20] MEDS: MAGNESIUM SULFATE / D5W 1 GM/100 ML BAG IV ONE (09:37)
[2024-09-20] MEDS: MAGNESIUM OXIDE 400 MG TAB PO SCH (09:43)
--- NOTE | 2024-09-20 10:19 | Electrocardiogram Report ---
Test Reason : Blood Pressure : */* mmHG Vent. Rate : 91 BPM Atrial Rate : 94 BPM P-R Int : 172 ms QRS Dur : 84 ms QT Int : 350 ms P-R-T Axes : 85 3 58 degrees QTcB Int : 430 ms Sinus rhythm with Premature atrial complexes Nonspecific ST and T wave abnormality Abnormal ECG When compared with ECG of 11-Jul-2024 08:40, Premature ventricular complexes are no longer Present Premature atrial complexes are now Present Confirmed by Jaret Perdomo ([id number]) on 09/20/2024 10:19:18 AM Referred By: REFERRED SELF Confirmed By: Jaret Perdomo
--- NOTE | 2024-09-20 10:24 | Electrocardiogram Report ---
Test Reason : Blood Pressure : */* mmHG Vent. Rate : 81 BPM Atrial Rate : 81 BPM P-R Int : 156 ms QRS Dur : 84 ms QT Int : 370 ms P-R-T Axes : 57 -6 42 degrees QTcB Int : 429 ms Normal sinus rhythm Minimal voltage criteria for LVH, may be normal variant ( R in aVL ) Nonspecific ST and T wave abnormality Abnormal ECG When compared with ECG of 19-Sep-2024 13:47, (unconfirmed) Premature atrial complexes are no longer Present Confirmed by Jaret Perdomo ([id number]) on 09/20/2024 10:23:59 AM Referred By: REFERRED SELF Confirmed By: Jaret Perdomo
--- NOTE | 2024-09-20 10:27 | Electrocardiogram Report ---
Test Reason : Blood Pressure : */* mmHG Vent. Rate : 101 BPM Atrial Rate : 101 BPM P-R Int : 166 ms QRS Dur : 78 ms QT Int : 358 ms P-R-T Axes : 59 9 48 degrees QTcB Int : 464 ms Sinus tachycardia Nonspecific T wave abnormality Abnormal ECG When compared with ECG of 19-Sep-2024 17:58, (unconfirmed) No significant change was found Confirmed by Jaret Perdomo ([id number]) on 09/20/2024 10:26:26 AM Referred By: REFERRED SELF Confirmed By: Jaret Perdomo
--- NOTE | 2024-09-20 10:29 | Neurology Consultation ---
Date of Consultation September 20, 2024 Assessment & Plan (1) Seizure-like activity: (2) Convulsive syncope: Plan 79-year-old female with recurrent episodes of loss of consciousness which seem most consistent with convulsive syncope. EEG completed this morning was normal, she also had a normal EEG in October 2023 under similar circumstances. Brain MRI negative for acute process although does reveal several chronic infarcts. Patient has been started on an empiric trial of antiseizure medication, Keppra, was given a 1 g oral loading dose, now prescribed 500 mg twice daily. Although a cardiovascular etiology for her recurrent syncope is not completely excluded, a seizure disorder is still possible in spite of her 2 normal EEGs. I would recommend that she continue with Keppra 500 mg twice daily. Would also recommend outpatient 72-hour ambulatory EEG monitoring. We can arrange this testing in clinic. Outpatient cardiology assessment ongoing. It looks like there are plans for an implantable loop recorder as well as a CT of the heart to further assess her aortic stenosis. Patient should follow-up with both neurology and cardiology as an outpatient. We can see her in clinic in 2 to 3 weeks after discharge. Can see myself or an ALEXIS at that time. History of Present Illness Reason for Consultation: seizure like episode Requesting Physician: Ela Attending Physician: Chapito Lancaster MD History of Present Illness The patient is a 79-year-old female who presented to the emergency department yesterday after an episode of loss of consciousness. She was at a restaurant with a credit historian at the time of the episode. The patient recalls feeling dizzy for quite some time prior to the reported loss of consciousness, she denies true vertigo. Patient does not recall experiencing any diaphoresis, change in vision, or paresthesias prior to the event. She recalls placing her head on the table due to dizziness. She apparently sat up and exhibited some clenching of the hands and arms, followed by shaking for about 15 to 30 seconds, followed by prolonged loss of consciousness. There was no tongue bite or incontinence or collapse to the floor. No neurologic deficits were identified during her initial emergency department assessment. She reportedly had 2 similar episodes prior to being brought to the emergency department. I see that she was evaluated in the emergency department on July 11, 2024 for after a syncopal episode followed by unresponsiveness. That episode occurred upon standing, she recalled feeling lightheaded and nauseous at that time. Her eyes were apparently open, she appeared dusky or johnson and had dilated pupils according to family members. The patient has no recollection for this particular event. She was seen by [facility] cardiology at that time, impression was of recurrent syncope, moderate to severe aortic stenosis, frequent PVCs, history of cardiomyopathy. She did have an outpatient follow-up with [facility] cardiology on July 31, she has been referred for an assessment with electrophysiology. A previous EEG had been completed October 17, 2023 in the context of syncope versus seizure. No abnormalities were identified on that EEG. Past medical history also notable for rheumatoid arthritis, on methotrexate. A previous brain MRI completed in October 2023 in the context of seizure-like activity revealed chronic microvascular ischemic disease and was otherwise unremarkable. A CT of the head completed yesterday was negative for hemorrhage or acute process, there is a chronic right thalamic ischemic lacunar infarct. A CTA of the head and neck completed yesterday was unremarkable. A follow-up brain MRI was also negative for acute process, chronic lacunar infarcts identified, right thalamus, left frontal and parietal lobes. I independently reviewed these images. There is chronic microvascular ischemic disease, bilateral hippocampal atrophy, no hydrocephalus. I was contacted by the emergency department physician overnight regarding her case. Given the recurrent nature of the episodes with associated possible seizure-like activity, patient was started on levetiracetam. She received a 1000 mg oral loading dose and currently has a prescription for 500 mg twice daily. Allergies Allergy/AdvReac Type Severity Reaction Status Date / Time animal dander Allergy coughing, Verified 07/31/24 10:35 sneezing No Known Drug Allergies Allergy Verified 07/31/24 10:35 Home Medications Medication Instructions Recorded Confirmed Type methotrexate sodium 2.5 mg tablet 20 mg PO WEEKLY 09/22/20 09/19/24 History metoprolol succinate 25 mg 25 mg PO DAILY #90 tabs 10/31/23 09/19/24 Rx tablet,extended release 24 hr potassium chloride 10 mEq 10 meq PO DAILY 10/31/23 09/19/24 History tablet,extended release nitrofurantoin macrocrystal 50 mg 50 mg PO HS #90 caps 04/23/24 09/19/24 Rx capsule aspirin 81 mg tablet,delayed 81 mg PO DAILY 06/06/24 09/19/24 History release calcium carbonate 500 mg PO DAILY 06/06/24 09/19/24 History methenamine hippurate 1 gram 1 g PO UD 06/06/24 09/19/24 History tablet (Hiprex) multivitamin 1 tab PO DAILY 06/06/24 09/19/24 History magnesium 1 tab PO DIRECTED 07/11/24 09/19/24 History sacubitril 24 mg-valsartan 26 mg 1 tab PO UD 09/19/24 09/19/24 History tablet (Entresto) Patient History Medical History Aortic valve sclerosis Malignant neoplasm of uterus Rheumatoid arthritis Bilateral otitis media with spontaneous rupture of eardrum HTN (hypertension) Surgical History History of hernia repair S/P knee replacement S/P hysterectomy S/P cholecystectomy Family History Grandfather Stroke Aunt Cancer Other Asthma No family history of bleeding disorder Denies family history of Ovarian cancer Prostate cancer Heart disease Myocardial infarction Breast cancer Colorectal cancer Hypertension Social History Smoking Status: Never smoker Second Hand Exposure: No; Do You Dip or Chew Tobacco: No; Hx Alcohol Use: No Hx Substance Use: No Preferred Language: B[place] Communication Ability: Effective Visual Impairment: No Limitations Hearing Ability: Use of Hearing Aid 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: No Beliefs That Will Affect Care: None marital status: Current Living Situation: Spouse Current Living Situation Comment: At home w/ current occupational status: retired 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 How many Children do You have: 6 Other Information That Helps Us Care for You: No Feels Safe at Home: Yes Safety Concerns: Feels Safe At This Time Childhood Exposure to Second-Hand Smoke: Yes Diet: regular Dental Care, Regularly: Yes Physical Activity Frequency: Daily Seatbelt Use: always Sunscreen Use: Yes Assistive Devices: Cane, Hearing Aid - Bilateral and Walker Review of Systems Constitutional: no fever and no chills Eyes: no blind spots and no diplopia Ear, Nose, Mouth, Throat: no hearing loss Respiratory: no cough and no dyspnea Cardiovascular: no chest pain and no palpitations Gastrointestinal: no nausea and no vomiting Genitourinary: no dysuria Musculoskeletal: no myalgia and no muscle weakness Integumentary: no rash and no lesions Neurologic: as per Subjective / HPI Psychiatric: no depression and no anxiety Hematologic / Lymphatic: no easy bleeding and no easy bruising Exam (Neuro) Constitutional: well developed and well nourished; no acute distress Eyes: normal visual whitaker by confrontation, PERRL and EOM intact bilaterally; no nystagmus Neurologic: Oriented to:: Person, Place and Time Memory: Short Term Intact and Remote Intact Attention: Span Intact and Concentration Intact Speech Fluency: negative Dysarthria or Dysfluency Speech Aphasia: negative Aphasia Fund of Knowledge: Current Events, Past History and Vocabulary Cranial Nerves: Normal II, III, IV, , V, VII, VIII, IX, X, XI and XII Motor Strength: Normal Lower Extremities and Normal Upper Extremities Motor Tone: Normal Lower Extremities and Normal Upper Extremities Muscle Bulk/Involuntary Movements: No Involuntary Movements; negative Muscle Atrophy Sensation: Light Touch Intact, Pain/Temperature Intact and Proprioception Intact; negative Vibration Intact Coordination: Normal; negative Dysdiadochokinesia, Finger- Nose Abnormal or Heel-Pritchett Abnormal Deep Tendon Reflexes: Rt Triceps: 2+, Lt Triceps: 2+, Rt Biceps: 2+, Lt Biceps: 2+, Rt Brachioradialis: 2+, Lt Brachioradialis: 2+, Rt Patellar: 1+, Lt Patellar: 1+, Rt Ankle: 1+ and Lt Ankle: 1+ Special Tests: Babinski Present (right) Details: Arthritic deformity of both hands noted related to rheumatoid arthritis Results & Data Vital Signs (Past 12 Hours) Vital Signs Temp Pulse Pulse Resp BP Pulse Ox O2 Del Method 09/20/24 07:34 69 09/20/24 07:32 36.6 C 86 16 145/79 H 95 Room Air 09/20/24 02:15 36.6 C 83 18 133/77 95 Room Air 09/19/24 23:06 66 09/19/24 22:57 36.8 C 103 H 18 145/71 H 94 Room Air Laboratory Results WBC 6.37, hemoglobin 10.6, hematocrit 31.7, platelet count 196, sodium 135, potassium 3.8, BUN 10, creatinine 0.65, glucose 126, magnesium 1.6, AST 27, ALT 18, high-sensitivity troponin 23.4, prolactin 33.[address] of the head, CTA of the head and neck, and brain MRI are as described in the HPI. Electrocardiogram reveals sinus tachycardia, 101 bpm EEG completed this morning was normal, no epileptiform abnormalities. Coding Level of Care Code 18094 INT INP/OBS CARE 3/75MIN Diagnoses Seizure-like activity R56.9 Convulsive syncope R55 Time Spent (min) 90 Comment Total time includes patient contact, chart review, counseling, note preparation
[2024-09-20 12:26] VITALS: BP 136/67; PULSE 83; RESP 18; TEMP 98.2; O2SAT 93
--- NOTE | 2024-09-20 12:46 | Communication Note ---
Date of Service: September 20, 2024 By CMS guidelines, a determination that the admission or continued stay is not medically necessary has been made by a member of the UR committee and a ph ysician for this hospital stay, therefore a Code 44 will be completed and the Inpatient admission will be changed to outpatient.
--- NOTE | 2024-09-20 12:56 | Discharge Summary ---
Discharge Summary Date of Service September 20, 2024 Principal Dx & Hospital Course #1 = Principal Diagnosis (1) Unresponsive episode: Possible Seizure Was out to eat, unresponsive with shaking for 10-15 seconds. - CT and CTA head unremarkable on admission - MRI: extensive white matter abnormalities - likely due to chronic small vessel ischemic disease. old infarcts. No acute infarction or mass lesion. - CK and lactate negative, prolactin mildly elevated - consult neurology - EEG normal - continue Keppra 500mg BID - outpatient follow up and continue follow up with cardiology -no acute events on tele (2) Hypomagnesemia: Chronic - 1.6 on admission - continue home supplement + additional 400 mg PO on admission and 1g given IV (3) Elevated troponin: - 16.1 on admission, peaked at 25 and down trending - EKG showing NSR, no ischemic changes (4) Diabetes mellitus type 2, diet-controlled: Diet controlled at home - Most recent A1C 6.7% (5) Frequent urinary tract infections: - continue home Methenamine and nitrofurantoin for chronic UTIs - UA ordered Plan Chronic stable diagnoses: aortic stenosis - continue to follow with cardiology outpatient osteoarthritis - continue Methotrexate weekly on Mondays HTN - continue home metoprolol Dispo: discharge to home today updated at bedside correspondence sent to Ranjeet Coffey - Cardiology Notes For Next Care Provider another unreposive episode, possible seizure, started on Keppra. messaged cardiology for possible closer follow up Medication Changes From Visit keppra 500 BID Admission HPI Per Admitting Provider Patient is a 79-year-old female with a past medical history of chronic hypomagnesia, T2DM, cardiomyopathy, mitral regurgitation, aortic valve stenosis. She presents today due to 2 unresponsive episodes that occurred at a restaurant today. She came in as a stroke alert, CT head negative. Patient cannot remember the episode and the following history was obtained from her . He stated that he was not with her at the restaurant, her daughter was but this is what she reportedthe patient was sitting at the table and fell forward onto the table she then began with a shaking episode. There was a downstream biomanufacturing technician at the restaurant that helped set the patient up. The patient then had a second episode of shaking. She had unconsciousness/confusion until she came to the hospital via EMS. Even after arrival she still had confusion, not knowing where she was, but has now improved. The patient's family stated that this is the fourth time it has happened. The previous 2 times she just had unresponsiveness with a clenched fist and quickly came back to it. The patient has been following up with cardiology after her recent discharge. They are working on getting her Holter monitor, but have not yet completed it. Patient does endorse feeling dizzy this morning, although chronic for her (improved with recent d/c of Entresto). She has also had recent ankle edema since this weekend. This is chronic for her and she wears compression socks at home. Patient denies headache, vision changes, rhinorrhea, sore throat, cough, dyspnea, dyspnea on exertion, chest pain, abdominal pain, nausea, vomiting, diarrhea, constipation, dysuria, hematuria, numbness, tingling. She lives at home with her . She does not use nicotine or drink alcohol. Given she has no current cancer, no previous VTE, CVA, [place], COPD, asthma, or kidney disease. Her diabetes is currently diet controlled. She does not use oxygen at baseline. She took her home medications morning. She wishes to be full code at this time. Patient's and daughter updated at bedside. Discharge Exam General: NAD, VS as above Resp: normal respiratory effort, lungs clear to auscultation CV: RRR, no murmur, Abd: normal bowel sounds, non tender, no hepatosplenomegaly Extremities: Moves all extremities, no edema Neuro: A&O x3, no focal deficits Skin: intact, no lesions noted Discharge Plan Discharge Items Patient Disposition: Home - Self-Care Reason For Visit: SEIZURE LIKE ACTIVITY Discharge Diagnosis: Seizure like acitvity Activity: Resume your previous activity Driving/Machine Use: No driving until neurology follow up Non-emergency contact: Primary Care Provider, Special Education Science Teacher and Neurologist Call non-emergency contact if: you have any medication questions and your symptoms worsen Follow-up/Referrals: Hiram Campos MD [Physician] - (follow up in 2-3 weeks Neurology will call Pt to schedule appointment) Mary Lam MD [Primary Care Provider] - 10/01/24 4:00 pm (follow up within one week Hospital follow up scheduled October 01 at 4:00 with Jarrell Cope.) Diet: Carb Consistent or DM2 and Heart Healthy Addtl Attending Provider Instructions: Ms. Castrejon, You were hospitalized after another episode of unresponsiveness. Unfortunately, we have not been able to definitively say if it was a seizure or not a seizure. You were seen by neurology and since we cannot rule out seizure, we have started you on Keppra which is an antiseizure medication. You will take this twice a day. Recommended that you follow up with neurology in 2-3 weeks, they should be making an appointment but if you do not hear from them but Tuesday please call the number above. I have attached general information about seizures below. I have also sent a message to your cardiology providers, they will be in touch if anything needs to be changed with their current treatment plan. I would recommend not driving until you are seen in the neurology office. No other changes to your home medications. Activity: You can do normal everyday activities as your body allows. Take rest breaks if you feel tired. Do not overexert. Stop activity if you have pain, shortness of breath or feel dizzy. Follow-up appointments: Make an appointment with your primary care physician within one week of discharge. A copy of this summary will be sent to them. Every time you see your primary care physician, or any other doctor, bring your medication list, and a list of questions. CONTACT YOUR PRIMARY CARE PROVIDER if you experience any of the following: Shortness of breath or difficulty breathing Fevers or chills Feeling tired with normal activity or experiencing dizziness or fainting Difficulty following your treatment plan, or difficulty taking medications CALL 911 OR GO TO THE EMERGENCY DEPARTMENT if you experience any of the following: Severe abdominal pain or nausea/vomiting Severe chest pain, or chest pain that radiates (moves) to your jaw or arm Sudden, severe shortness of breath or difficulty breathing Thank you for allowing us to participate in your care. Pending Studies at Discharge: Yes (urine culture ) Stand-Alone Forms: My [employer], Smoking Cessation Medications and DC Order Prescriptions: New levetiracetam [Keppra] 500 mg Tablet 500 mg PO BID 30 Days Qty: 60 1RF Continued methotrexate sodium 2.5 mg tablet 20 mg PO WEEKLY Patient Comments: PO WEEKLY; Rx Instructions: on Mondays potassium chloride 10 mEq tablet extended release 10 meq PO DAILY Dose Instruction: TAKE 2 TABLETS BY MOUTH DAILY FOR HYPOKALEMIA Rx Instructions: TAKE 1 TABLETS BY MOUTH DAILY FOR HYPOKALEMIA metoprolol succinate 25 mg tablet extended release 24 hr 25 mg PO DAILY Qty: 90 3RF nitrofurantoin macrocrystal 50 mg capsule 50 mg PO HS Qty: 90 1RF Rx Instructions: must administer with a meal/food. Take one capsule daily at bedtime. methenamine hippurate [Hiprex] 1 gram tablet 1 g PO UD Rx Instructions: 1 g po hs last filled with pharmacy end of April 2024, pharmacist thinks they switched her over to the preventive Macrobid multivitamin Tablet 1 tab PO DAILY Rx Instructions: otc unable to verify 11/6 aspirin 81 mg Tablet,Delayed Release (Dr/Ec) 81 mg PO DAILY Rx Instructions: otc unable to verify 11/6 calcium carbonate 500 mg calcium (1,250 mg) Tablet 500 mg PO DAILY Rx Instructions: otc unable to verify 11/6 magnesium 1 tab PO DIRECTED Rx Instructions: otc unable to verify 11/6 Discontinued Entresto 24-26 mg tablet 1 tab PO UD Rx Instructions: 1 tab po bid. Last filled with pharmacy 04/10/24. Discharge Orders: Discharge Order (Routine); Ordered 09/20/24 Ordered By: Elen Bernal/Other Patient Handouts: ED Seizure New [facility] Adult Admission Data Admit Date/Time: 09/19/24 17:34 Attending Provider: Chapito Lancaster Admit Provider: Jim Cruz Primary Care Provider: Mayr Lam Other Providers: Jim Cruz; Hiram Campos Other Interventions: Discharge Summary Assessment (RN) Last Done: 09/20/24 13:59 Hospital Stay Data Consultations 09/19/24 17:06 ED Decision to Admit Stat 09/19/24 17:28 Consult Neurology Stat Diagnostic Imagining Performed Head CT 09/19/24 13:26 CT angio head w con, CT head/brain wo con CLINICAL HISTORY: 79 years-old Female with neuro deficit, acute stroke suspected. Acute stroke like symptoms COMPARISON STUDY: CT neck of same day, CTA head and CT head 07/11/2024 TECHNIQUE: Unenhanced axial CT scan of the brain is performed. Subsequently, following the IV administration of 112 cc of Optiray, CT angiogram of the brain was performed from the skull base to the vertex. Images are reviewed in the axial, sagittal, and coronal planes. 3-D MIPS images are created and assessed. IV contrast was administered without complication. All measurements were obtained according to NASCET criteria. A dose lowering technique was utilized adhering to the principles of ALARA. FINDINGS: CT BRAIN: There is no acute intracranial hemorrhage, midline shift, hydrocephalus, intracranial mass, territorial ischemia or abnormal extra-axial collections. No abnormal intra-axial or extra-axial enhancement. Involutional changes with chronic microvascular ischemic disease. Unchanged 8 mm hypodensity within the anterior medial right thalamus suggestive of a chronic lacunar infarct. Cerebral vascular calcifications. Mastoid air cells and middle ear cavities are clear. No calvarial fracture. Paranasal sinuses are clear. CT ANGIOGRAM OF THE BRAIN: The imaged bilateral internal carotid arteries are patent. The bilateral anterior and middle cerebral arteries are also patent. The vertebrobasilar system and posterior cerebral arteries are widely patent. Developmentally diminutive right vertebral artery terminates into the right PICA. Mild to moderate multifocal stenoses of the intracranial arteries. There is no aneurysm, high-grade stenosis, or proximal branch occlusion identified. Dural sinuses appear patent. IMPRESSION: 1. No acute intracranial abnormality. 2. Unremarkable CTA of the head. ACT 112: Negative or not required by law. The above report was generated using voice recognition software. It may contain grammatical, syntax or spelling errors. Electronically signed by: Carl Germain M.D. 09/19/2024 2:00 PM Head CTA 09/19/24 13:26 CT angio head w con, CT head/brain wo con CLINICAL HISTORY: 79 years-old Female with neuro deficit, acute stroke suspected. Acute stroke like symptoms COMPARISON STUDY: CT neck of same day, CTA head and CT head 07/11/2024 TECHNIQUE: Unenhanced axial CT scan of the brain is performed. Subsequently, following the IV administration of 112 cc of Optiray, CT angiogram of the brain was performed from the skull base to the vertex. Images are reviewed in the axial, sagittal, and coronal planes. 3-D MIPS images are created and assessed. IV contrast was administered without complication. All measurements were ob tained according to NASCET criteria. A dose lowering technique was utilized adhering to the principles of ALARA. FINDINGS: CT BRAIN: There is no acute intracranial hemorrhage, midline shift, hydrocephalus, intracranial mass, territorial ischemia or abnormal extra-axial collections. No abnormal intra-axial or extra-axial enhancement. Involutional changes with chronic microvascular ischemic disease. Unchanged 8 mm hypodensity within the anterior medial right thalamus suggestive of a chronic lacunar infarct. Cerebral vascular calcifications. Mastoid air cells and middle ear cavities are clear. No calvarial fracture. Paranasal sinuses are clear. CT ANGIOGRAM OF THE BRAIN: The imaged bilateral internal carotid arteries are patent. The bilateral anterior and middle cerebral arteries are also patent. The vertebrobasilar system and posterior cerebral arteries are widely patent. Developmentally diminutive right vertebral artery terminates into the right PICA. Mild to moderate multifocal stenoses of the intracranial arteries. There is no aneurysm, high-grade stenosis, or proximal branch occlusion identified. Dural sinuses appear patent. IMPRESSION: 1. No acute intracranial abnormality. 2. Unremarkable CTA of the head. ACT 112: Negative or not required by law. The above report was generated using voice recognition software. It may contain grammatical, syntax or spelling errors. Electronically signed by: Carl Germain M.D. 09/19/2024 2:00 PM Neck CTA 09/19/24 13:26 CT ANGIOGRAPHY OF THE NECK WITH CONTRAST CLINICAL HISTORY: neuro deficit, acute stroke suspected COMPARISON STUDY: CTA of the neck July 11, 2024. Technique: CT angiography of the carotid and vertebral arteries was obtained using Optiray and 3D reconstruction on an independent workstation. NASCET criteria was utilized. Automated exposure control was utilized for the study. A dose lowering technique was utilized adhering to the principles of ALARA. CT DOSE: 1173.18 mGy.cm Findings: No cervical spine fractures are present. There is no cervical lymphadenopathy. The bilateral common carotid, cervical internal carotid and vertebral arteries are patent. The left vertebral artery is dominant. The right vertebral artery is somewhat diminutive on a congenital basis. There is no dissection or aneurysm within the neck. There is mild plaque within the bilateral carotid bifurcations without stenosis. IMPRESSION: No stenosis or dissection within the major vessels of the neck. ACT 112: Negative or not required by law. Electronically signed by: Braydon Patten M.D. 09/19/2024 2:05 PM Brain MRI 09/19/24 17:12 Clinical History: Confusion. Possible seizure. History of melanoma and uterine cancer Technique: Multiple T1 and T2-weighted magnetic resonance images were obtained of the brain both before and after the administration of 9 cc of Gadavist intravenous gadolinium contrast Comparison is made to the prior MRI dated 10/17/2023 Findings: There is no sign of acute infarction with normal-appearing diffusion weighted images. There is cerebral atrophy, within expected limits for the patient's age. There are worsened areas of increased T2 signal intensity within the periventricular white matter, most likely due to chronic small vessel ischemic disease. There are prominent perivascular spaces within the basal ganglia bilaterally. There is an old infarct of the anterior aspect of the right thalamus. There is also an unchanged suspected small old infarct at the junction of the left frontal and left parietal lobes No mass lesion or other area of abnormal enhancement is identified. There is no intracranial hemorrhage or other fluid collection. No midline shift or other form of herniation is seen. There is no hydrocephalus. The pituitary gland appears normal. Normal flow-voids are seen within the arteries of the [id number]. The orbits and paranasal sinuses appear normal. There is partial opacification of the right mastoid air cells Impression: 1. Extensive white matter abnormalities, worsened since the prior study. This is most likely due to chronic small vessel ischemic disease 2. 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 No sign of acute infarction or mass lesion 4. Partial opacification of the right mastoid air cells, which may be due to inflammatory mastoiditis Electronically signed by Isma Hines 09-19-2024 7:17 PM Pending Results Patient Have Any Pending Studies at Discharge: Yes (urine culture ) Discharge Instructions Given to Patient (Per Discharging Provider) Ms. Castrejon, You were hospitalized after another episode of unresponsiveness. Unfortunately, we have not been able to definitively say if it was a seizure or not a seizure. You were seen by neurology and since we cannot rule out seizure, we have started you on Keppra which is an antiseizure medication. You will take this twice a day. Recommended that you follow up with neurology in 2-3 weeks, they should be making an appointment but if you do not hear from them but Tuesday please call the number above. I have attached general information about seizures below. I have also sent a message to your cardiology providers, they will be in touch if anything needs to be changed with their current treatment plan. I would recommend not driving until you are seen in the neurology office. No other changes to your home medications. Activity: You can do normal everyday activities as your body allows. Take rest breaks if you feel tired. Do not overexert. Stop activity if you have pain, shortness of breath or feel dizzy. Follow-up appointments: Make an appointment with your primary care physician within one week of discharge. A copy of this summary will be sent to them. Every time you see your primary care physician, or any other doctor, bring your medication list, and a l ist of questions. CONTACT YOUR PRIMARY CARE PROVIDER if you experience any of the following: Shortness of breath or difficulty breathing Fevers or chills Feeling tired with normal activity or experiencing dizziness or fainting Difficulty following your treatment plan, or difficulty taking medications CALL 911 OR GO TO THE EMERGENCY DEPARTMENT if you experience any of the following: Severe abdominal pain or nausea/vomiting Severe chest pain, or chest pain that radiates (moves) to your jaw or arm Sudden, severe shortness of breath or difficulty breathing Thank you for allowing us to participate in your care. Supervising Physician Co-Signing Physician Notes Attending Attestation & Discharge Note: Pt seen/examined, chart reviewed, discharge care plan d/w ARON Dc. I agree w/ the gonzalez components of her discharge documentation. 79yo female with T2DM, aortic stenosis, recurrent UTIs. Presented after having 2 episodes of "shaking" while eating at a restaurant. Patient was altered/unconscious during the above episodes. After resolution of the shaking she remained altered. Even after arrival at [facility] she remained confused for a period of time. During the stay she underwent EEG testing which was negative for seizure focus. MRI Brain showed old strokes but no acute or subacute CVA. CTA head/neck - wnl. Seen by [facility] Neurology - Dr Hiram Campos. He did feel that her episodes could be convulsive syncope. He advised keppra 500mg BID. He also advised a 72-hour ambulatory EEG which will be arranged when she follows up with neurology in the clinic. Discharge exam: gen - NAD, pleasant; awake/alert neck - no JVD heart - RRR, s1 s2, 2/6 systolic murmur RUSB lungs - CTA b/l abd - soft NT ND BS+ ext - no edema, pulses 2+ b/l neuro - strength 5/5 x 4 exts, speech fluent/clear Finally, patient advised NO DRIVING and no swimming/tub baths unattended. Chapito Lancaster MD Total Time Total Time Spent Total Time Spent (In Minutes): Time spent day of discharge 40 minutes including direct patient care, medication reconciliation, documentation, review of labs and images, and coordination of care. Coding Level of Care Code 35215 INP/OBS DISCH >30 MIN Diagnoses Unresponsive episode R40.4 Hypomagnesemia E83.42 Elevated troponin R79.89 Diabetes mellitus type 2, diet-controlled E11.9 Frequent urinary tract infections N39.0
--- NOTE | 2024-09-20 12:59 | Communication Note ---
Date of Service: September 20, 2024 By CMS guidelines, a determination that the admission or continued stay is not medically necessary has been made by a member of the UR committee and nasim rodriguez for this hospital stay, therefore a Code 44 will be completed and the Inpatient admission will be changed to outpatient.
[2024-09-24] MEDS ORDERED: metHOTREXate sodium 2.5 MG TAB PO SCH (09:00)
== END 2024-09-20 14:52 | disposition home or self-care (01) | DRG 101 ==
LOC: ED 13:28 → 2S 17:34 → SUATTDRO 17:34 → INTOOBSV 17:34 → 2S 18:26

== ENCOUNTER 2025-01-10 09:08 | Observation (INO) ==
--- NOTE | 2025-01-10 09:27 | Emergency Department Note ---
Impression & Plan Syncope and collapse ED Provider Note Name: CHIKIS QUEZADA Age: 79 Sex: Female Arrives Via: Ambulance Informant: Patient, ED Provider: Delgado Pena MD Chief Complaint: Syncope Impression: As per impressions above Medical Decision Makin-year-old female arrives for evaluation following a syncopal event while sitting at the kitchen table. She did not strike her head. Per EMS patient was hypoxic requiring nasal cannula O2 before she came to prior to coming to the hospital. Patient does have a report of a epilepsy and syncope in the past and had not had any issues since September when she had been started on Keppra. My suspicion is that this may have been another seizure however the hypoxia following it and somewhat unusual circumstances make me a bit more hesitant to completely rule out other cause such as cardiac. Initial EKG and troponin are reassuring and other laboratory workup is reassuring as well. Given the syncope I did discuss with hospitalist service who will bring her in for observation. Of note CT imaging of the head and other workup is reassuring at this time. Given complete resolution of symptoms no shortness of breath and otherwise in no distress I do not think that PE would be likely. No evidence of sepsis either Triage/Nursing Notes reviewed by Me External Chart Review by me: I reviewed the discharge summary from patient's hospitalization stay on 09/20/2024 discussing previous syncopal episode and seizure findings. Differential:Vasovagal event, dehydration, infection, hypoglycemia, electrolyte abnormalities, cardiac sources, intracerebral event, pulmonary embolism, seizure, toxicologic, neurologic, as well as other pathologies. Vital Signs: reviewed and remarkable for no significant abnormalities on arrival in particular no hypoxia on room air Labs:ED labs Reviewed by me and remarkable for no significant abnormalities Imaging:CT of the head without contrast as per my informal interpretation reveals no intracranial hemorrhage or mass effect confirmed by radiologist. 1 view chest x-ray as per my interpretation no infiltrate, effusion, pneumothorax appreciated. EKG:As per my interpretation. Indication syncope. Normal sinus rhythm at 67 bpm QTc of 424. There is no ectopy nor overt ischemia. When compared to EKG of September 20, 2024 rate has decreased. Cardiac/Tele Monitoring: Cardiac Monitoring: An Order was placed for continuous cardiac monitoring. The monitor shows a rate of 60 with a normal sinus rhythm. Consults:Discussed with Dr. Cade of the [facility] hospitalist service who will bring in for further manage and evaluation given the syncope with reported hypoxia following Plan: Disposition:Hospitalization. Condition: Good History of Present Illness: 79-year-old female arrives for evaluation of syncope. Patient with a recurrent history of syncopal episodes thought possibly due to epilepsy. Last occurred about 3 months ago though and has since been on Keppra with good result. This morning while sitting at the breakfast table patient states she was feeling very dizzy. She told her she was not feeling well. He notes that she sort of collapsed onto the top of the table. She initially was mumbling some to his talking but eventually became unresponsive. She developed slow breathing. EMS arrived and state had sonorous respirations with low oxygenation. She was placed on 5 L nasal cannula before coming to. Patient states she feels fine now. Denies any headache, neck, chest pain, shortness of breath, back pain, abdominal pain, leg swelling, neurologic deficits, visual changes or other concerning signs or symptoms. She did not strike her head denies any headache or neck pain. She did not have a ground- level fall. She not take any blood thinners other than aspirin 81 mg daily. Her Keppra is 500 mg twice daily which she has not missed doses for. Past Medical History:See Below Home Medications:See Below Allergies: No known drug allergy Vitals:Blood Pressure: 141/83, Pulse 87, RR 20, T 36.8C, O2 97% on RA Physical Exam: GENERAL: Patient is well appearing and in no acute distress. HEAD: AT/NC RESPIRATORY: No dyspnea. Clear to auscultation and equal bilaterally. CARDIOVASCULAR: Regular rate and rhythm.No murmur appreciated. GASTROINTESTINAL: Abdomen soft, non-tender, no peritonitis. EXTREMITIES: Normal motion all extremities, no cyanosis, no edema. NEUROLOGIC: Alert and oriented. No focal neurologic deficits appreciated SKIN: No rash, no jaundice, no diaphoresis. PSYCH: Appropriate GCS: 15 ED Course: Times/Reassessments: Patient stable throughout with good vital signs no hypoxia nor hypotension. 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 Encounter for interrogation of cardiac recorder Seizure-like activity Convulsive syncope Recurrent syncope (Acute) Mitral regurgitation Aortic valve stenosis with insufficiency (Acute) Lightheadedness Frequent PVCs Cardiomyopathy ETD (eustachian tube dysfunction) Sensorineural hearing loss (SNHL) of both ears Hyponatremia (Chronic) Bilateral hearing loss (Chronic) History of squamous cell carcinoma in situ of skin Osteoarthritis, knee (Chronic 12/24/14) Medical History Frequent urinary tract infections Diabetes mellitus type 2, diet-controlled Aortic valve sclerosis Malignant neoplasm of uterus Rheumatoid arthritis Bilateral otitis media with spontaneous rupture of eardrum HTN (hypertension) Surgical History History of hernia repair S/P knee replacement S/P hysterectomy S/P cholecystectomy Family History Grandfather Stroke Aunt Cancer Mother , age 90 with heart issues Heart disease Father , age 85 of uncertain issues. Hypertension Other Asthma No family history of bleeding disorder Denies family history of Ovarian cancer Prostate cancer Myocardial infarction Breast cancer Colorectal cancer Social History Smoking Status: Never smoker Second Hand Exposure: No; Do You Dip or Chew Tobacco: No; Hx Alcohol Use: No Hx Substance Use: No Preferred Language: Yakut Communication Ability: Effective Visual Impairment: No Limitations Hearing Ability: Use of Hearing Aid Telecommunications Sales Representative Required: No Beliefs That Will Affect Care: None marital status: Current Living Situation: Spouse Current Living Situation Comment: At home w/ current occupational status: retired 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 How many Children do You have: 6 Feels Safe at Home: Yes Childhood Exposure to Second-Hand Smoke: Yes Diet: regular Dental Care, Regularly: Yes Physical Activity Frequency: Daily Seatbelt Use: always Sunscreen Use: Yes Assistive Devices: Cane and Walker Allergies Allergies Allergy/AdvReac Type Severity Reaction Status Date / Time No Known Allergies Allergy Unverified 11/26/24 11:42 Home Meds Home Medications Medication Instructions Recorded Confirmed methotrexate sodium 2.5 mg tablet 20 mg PO WEEKLY 09/22/20 01/10/25 potassium chloride 10 mEq 10 meq PO DAILY 10/31/23 01/10/25 tablet,extended release aspirin 81 mg tablet,delayed 81 mg PO DAILY 06/06/24 01/10/25 release calcium carbonate 500 mg PO DAILY 06/06/24 01/10/25 methenamine hippurate 1 gram 1 g PO UD 06/06/24 01/10/25 tablet (Hiprex) multivitamin 1 tab PO DAILY 06/06/24 01/10/25 magnesium 1 tab PO DIRECTED 07/11/24 01/10/25 Previous Rx's Medication Instructions Recorded metoprolol succinate 25 mg 25 mg PO DAILY #90 tabs 11/09/24 tablet,extended release 24 hr nitrofurantoin macrocrystal 50 mg 50 mg PO HS #90 caps 11/12/24 capsule levetiracetam 750 mg tablet 750 mg PO BID 30 days #60 tabs 01/11/25 (Keppra) Results & Data (ED) Vital Signs Vital Signs - 24 hr 01/10/25 09:13 01/10/25 09:13 01/10/25 09:13 Temperature 36.8 C Temperature Source Oral Pulse Rate 71 Pulse Rate [Apical] Respiratory Rate 20 Respiratory Effort / Characteristics Non-Labored Non-Labored Respiratory Depth Normal Normal Blood Pressure 141/83 H Blood Pressure [Right Arm] Blood Pressure Mean 102 Blood Pressure Mean [Right Arm] Pulse Oximetry 97 Oxygen Delivery Method Room Air Room Air Sepsis Recent Fever Within 48 Hours No Sepsis New/Unexplained Change in Mental Status Yes Sepsis Action Taken by Nursing No Action Required 01/10/25 09:35 01/10/25 09:46 01/10/25 10:01 Temperature Temperature Source Pulse Rate 87 65 65 Pulse Rate [Apical] Respiratory Rate 18 Respiratory Effort / Characteristics Respiratory Depth Blood Pressure 156/90 H 135/106 H Blood Pressure [Right Arm] Blood Pressure Mean 105 120 Blood Pressure Mean [Right Arm] Pulse Oximetry 96 95 Oxygen Delivery Method Room Air Room Air Sepsis Recent Fever Within 48 Hours Sepsis New/Unexplained Change in Mental Status Sepsis Action Taken by Nursing 01/10/25 10:15 01/10/25 11:07 Temperature Temperature Source Pulse Rate 62 Pulse Rate [Apical] 60 Respiratory Rate 20 18 Respiratory Effort / Characteristics Respiratory Depth Normal Blood Pressure 135/80 Blood Pressure [Right Arm] 165/67 H Blood Pressure Mean 103 Blood Pressure Mean [Right Arm] 99 Pulse Oximetry 96 96 Oxygen Delivery Method Room Air Room Air Sepsis Recent Fever Within 48 Hours Sepsis New/Unexplained Change in Mental Status Sepsis Action Taken by Nursing Laboratory Data 01/11/25 06:00 01/11/25 06:00 Lab Results 01/10/25 Range/Units 09:22 WBC 6.34 (4.8-10.8) K/ul RBC 3.73 L (4.20-5.40) M/uL Hgb 12.5 (12.0-16.0) g/dl Hct 36.6 L (37.0-47.0) % MCV 98.1 (80.0-100.0) fL MCH 33.5 (25.0-34.0) pg MCHC 34.2 (32.0-36.0) g/dL RDW Std Deviation 49.1 H (36.4-46.3) fL RDW Coeff of Connie 13.8 (11.5-14.5) % Plt Count 221 (130-400) K/uL MPV 9.9 (9.4-12.4) fL Immature Gran % (Auto) 1.1 % Neut % (Auto) 64.1 % Lymph % (Auto) 18.6 % [place] % (Auto) 9.9 % Eos % (Auto) 5.2 % Baso % (Auto) 1.1 % Neut # (Auto) 4.06 (1.40-6.50) K/uL Lymph # (Auto) 1.18 L (1.20-3.40) K/uL [place] # (Auto) 0.63 H (0.11-0.59) K/uL Eos # (Auto) 0.33 (0.00-0.50) K/uL Baso # (Auto) 0.07 (0.00-0.20) K/uL Immature Gran # (Auto) 0.07 (0.01-0.20) K/uL Sodium 137 (136-145) mmol/L Potassium 3.8 (3.5-5.1) mmol/L Chloride 105 (98-107) mmol/L Carbon Dioxide 26 (21-32) mmol/L Anion Gap 6 (3-11) BUN 13 (6-23) mg/dl Creatinine 0.77 (0.6-1.2) mg/dl Est Cr Clr Drug Dosing 67.2 ml/min eGFR 79.40 BUN/Creatinine Ratio 16.9 (10-20) Glucose 153 H (70-99(Fasting)) mg/dl Calcium 8.8 (8.6-10.3) mg/dl Magnesium 1.5 L (1.7-2.4) mg/dl Total Bilirubin 1.2 H (0.2-1.0) mg/dl Direct Bilirubin 0.2 (0-0.2) mg/dl AST 21 (13-39) U/L ALT 12 (7-52) U/L Alkaline Phosphatase 76 (34-104) U/L Troponin I High Sens 12.0 (0-14) pg/ml Total Protein 7.1 (6.0-8.3) gm/dl Albumin 3.2 L (3.4-5.0) gm/dl TSH 3.161 (0.300-4.500) uIu/ml Administered Medications Discontinued Medications Aspirin (Aspirin 81 Mg Ectab) 81 mg PO DAILY JESUS Stop: 02/10/25 08:59 Last Admin: 01/11/25 09:11 Dose: 81 mg Documented By: JERONIMO Aspirin (Aspirin 81 Mg Ectab) 81 mg PO ONE ONE Stop: 01/10/25 12:46 Last Admin: 01/10/25 13:06 Dose: 81 mg Documented By: DEON Magnesium Sulfate/Dextrose (Magnesium Sulfate / D5w) 1 gm in 100 mls @ 50 mls/hr IV Q2H JESUS Stop: 01/10/25 15:29 Last Infusion: 01/10/25 16:35 Dose: Infused Documented By: Admin: 01/10/25 13:26 Dose: 50 mls/hr Documented By: Infusion: 01/10/25 13:25 Dose: Infused Documented By: Admin: 01/10/25 11:40 Dose: 50 mls/hr Documented By: DEON Levetiracetam (Levetiracetam 500 Mg/5 Ml Vial) 1,000 mg IV NOW STA Stop: 01/10/25 11:48 Last Admin: 01/10/25 13:06 Dose: 1,000 mg Documented By: DEON Levetiracetam (Levetiracetam 250 Mg Tab) 750 mg PO BID JESUS Stop: 02/09/25 20:59 Last Admin: 01/11/25 09:11 Dose: 750 mg Documented By: Admin: 01/10/25 20:14 Dose: 750 mg Documented By: PERRI Metoprolol Succinate (Metoprolol Succ 25mg Ext Rel Tab) 25 mg PO DAILY JESUS Stop: 02/10/25 08:59 Last Admin: 01/11/25 09:11 Dose: 25 mg Documented By: JERONIMO Metoprolol Succinate (Metoprolol Succ 25mg Ext Rel Tab) 25 mg PO ONE ONE Stop: 01/10/25 12:46 Last Admin: 01/10/25 13:06 Dose: 25 mg Documented By: MMG Nitrofurantoin Macrocrystals (Nitrofurantoin Macrocrystal 50 Mg Cap) 50 mg PO HS [facility] Stop: 02/09/25 20:59 Last Admin: 01/10/25 20:14 Dose: 50 mg Documented By: PERRI Potassium Chloride (Potassium Chloride 10 Meq Tabcr) 10 meq PO DAILY JESUS Stop: 02/10/25 08:59 Last Admin: 01/11/25 09:14 Dose: 10 meq Documented By: JERONIMO Discharge Plan Visit Data Chief Complaint: Lethargic ED Provider: Delgado Pena Discharge Problem: Syncope and collapse Patient Disposition: Admitted As Inpatient Discharge Instructions Interventions: ED Discharge Assessment Last Done: 01/10/25 13:49
[2025-01-10 09:49] LABS: Basophils # (auto) 0.07 K/uL (0.00-0.20); Basophils % (auto) 1.1 %; Eosinophils # (auto) 0.33 K/uL (0.00-0.50); Eosinophils % (auto) 5.2 %; Hematocrit (blood only) 36.6 % (37.0-47.0); Hemoglobin 12.5 g/dl (12.0-16.0); Immature Granulocytes # (auto) 0.07 K/uL (0.01-0.20); Immature Granulocytes % (auto) 1.1 %; Lymphocytes # (auto) 1.18 K/uL (1.20-3.40); Lymphocytes % (auto) 18.6 %; Mean Corpuscular Hemoglobin 33.5 pg (25.0-34.0); Mean Corpuscular Hgb Conc 34.2 g/dL (32.0-36.0); Mean Corpuscular Volume 98.1 fL (80.0-100.0); Mean Platelet Volume 9.9 fL (9.4-12.4); Monocytes # (auto) 0.63 K/uL (0.11-0.59); Monocytes % (auto) 9.9 %; Neutrophils # (auto) 4.06 K/uL (1.40-6.50); Neutrophils % (auto) 64.1 %; Platelet Count 221 K/uL (130-400); RDW Coefficient of Variation 13.8 % (11.5-14.5); RDW Standard Deviation 49.1 fL (36.4-46.3); Red Blood Count 3.73 M/uL (4.20-5.40); White Blood Count 6.34 K/ul (4.8-10.8)
--- NOTE | 2025-01-10 09:51 | CT Scan Report ---
CT head/brain wo con CLINICAL HISTORY: 79 years-old Female with syncope. Acute syncope TECHNIQUE: Multiple axial CT images of the head were obtained without contrast. A dose lowering tech nique was utilized adhering to the principles of ALARA. CT DOSE: 547.75 mGy.cm COMPARISON: Brain MRI 09/19/2024 FINDINGS: No acute intracranial hemorrhage, midline shift, intracranial mass, hydrocephalus, territorial ischem ia or abnormal extra-axial collection. Involutional changes with chronic microvascular ischemic disea se. Chronic right basal ganglia lacunar infarcts. Cerebral vascular calcifications. The calvarium is intact. The paranasal sinuses, mastoid air cells, and middle ear cavities are clear . IMPRESSION: No acute intracranial abnormality. ACT 112: Negative or not required by law. The above report was generated using voice recognition software. It may contain grammatical, syntax o r spelling errors. Electronically signed by: Carl Germain M.D. 01/10/2025 9:49 AM
[2025-01-10 10:07] LABS: Albumin Level 3.2 gm/dl (3.4-5.0); BUN Creatinine Ratio 16.9 (10-20); Bilirubin Direct 0.2 mg/dl (0-0.2); Bilirubin,Total 1.2 mg/dl (0.2-1.0); Calcium 8.8 mg/dl (8.6-10.3); Creatinine Clr Calc Pharmacy 67.2 ml/min; Magnesium 1.5 mg/dl (1.7-2.4); Potassium 3.8 mmol/L (3.5-5.1); Total Protein 7.1 gm/dl (6.0-8.3)
[2025-01-10 10:20] LABS: Thyroid Stimulating Hormone 3.161 uIu/ml (0.300-4.500)
--- OUTSIDE RECORDS SUMMARY | 2025-01-10 10:28 | External Medical Summary | Summary of Care ---
Author Name Unknown Organization [facility] Address [address] [place] [address] Phone [phone] Care Team Providers Care Director Of District Office Name Role Phone Mary Lam MD Primary Care Provider Encounter Details Date Type Department Care Team (Late st Contact Info) Description 01/01/2025 Orders Only Rheumatology [place] [address] [employer] [place] [address] Hiram Gusman MD [facility] [employer] [place] [address] Allergies Active Allergy Reactions Criticality Noted Date Comments Other - Environmental 10/21/2004 Dogs and cats, eyes getting itchy and watery, has dogs and a cat, pt taking allergy medication documented as of this encounter (statuses as of 01/01/2025) Medications ASPIRIN 81 MG PO TABS one tab by mouth daily 100 Tab 0 5 Active MEDICAL INSTRUCTIONSIndic ations:Arthritis, rheumatoid (HCC) VNA consult for nursing, home PT/OT. dx: status bilateral knee replacements, DM, HTN, RA 1 Each 1 5 Active CALCIUM CARBONATE 600 MG PO TABSIndications:A rthritis, rheumatoid (HCC) one daily 30 Tab 0 5 Active MULTI-VITAMIN PO TABSIndications:K nee joint replacement status 1 daily 100 Tab 0 5 Active folic acid 1 MG Tablet TAKE 1 TAB BY MOUTH DAILY. 30 Tab 2 7 Active Cetirizine HCl (ZYRTEC ALLERGY) 10 MG Capsule Take 1 Capsule by mouth in the morning. Active Ascorbic Acid (VITAMIN C) 1000 MG Tablet Take 1 Tablet by mouth in the morning. Active Potassium Chloride Joaquina ER 20 MEQ TBCR Take 1 Tablet by mouth in the morning. Active Magnesium 250 MG Oral Capsule Take by mouth. Ac tive Cinnamon 500 MG Oral Capsule Take 1 Capsule by mouth in the morning. Active Metoprolol Succinate ER 25 MG Oral Tablet Extended Release 24 Hour (toPROL XL) 1/2 daily 3 Active levETIRAcetam 500 MG Oral Tablet (Keppra) 1 Tablet. 1 twice daily 4 Active Nitrofurantoin Macrocrystal 50 MG Oral Capsule (Macrodantin) 1 daily Active Methenamine Hippurate 1 GM Oral Tablet (Hiprex) 1 daily Active Methotrexate Sodium 2.5 MG Oral TabletIndications :Rheumatoid arthritis involving multiple sites with positive rheumatoid factor (HCC) Take 7 Tablets by mouth once a week. 96 Tablet 5 Active documented as of this encounter (statuses as of 01/01/2025) Active Problems Problem Noted Date Diagnosed Date Senile osteoporosis 01/12/2019 Advance directive on file 10/26/2016 Overview (02/09/2008): Yes, Patient instructed to provide copy of [...] 35.0 to 39.9 with serious comorbidity 02/09/2010 Overview (08/30/2018): Per Obesity Taxonomy ICD-10 update of inactive diagnosis DYSLIPIDEMIA, GOAL LDL BELOW 100 10/27/2009 Overview (10/27/2009): Per Lipid Taxonomy. Type 2 diabetes mellitus wit h hemoglobin A1c goal of less than 7.0% 09/11/2009 Overview (03/09/2016): Per Diabetes Taxonomy. ICD-10 update of inactive term Encounter for long-term (current) use of medicat ions 03/18/2009 Malignant neoplasm of corpus uteri 09/20/2007 Allergic rhinitis 10/21/2004 documented as of this encounter (statuses as of 01/01/2025) Resolved Problems Problem Noted Date Diagnosed Date Resolved Date Encounter for examination fo r normal comparison and control in clinical research program 10/26/2012 05/15/2014 Overview (03/02/2021): Diagnosis changed due to Research Module. Go to Snapshot for study details. HTN, GOAL BELOW 130/80 10/07/200907/06 Overview (10/07/2009): Modified per HTN protocol #16. ARTHRITIS,RHEUMATOID 11/12/2008 016 Type 2 diabetes mellitus wit h hemoglobin A1c goal of less than 7.0% 08/08/2008 09/11/2009 Overview (03/09/2016): Per Diabetes Taxonomy. ICD-10 update of inactive term Examination following surgery 11/05/2007 01/03/2013 Abdominal pain, generalized 11/03/2007 06/26/2013 Morbid obesity, BMI not known 09/22/2007 02/09/2010 Overview (02/09/2010): Per Obesity Taxonomy HTN, goal to be determined 09/13/2005 1 12/07/2008 Overview (10/07/2009): Modified per HTN protocol #16. Allergic rhinitis 09/13/2005 09/13/2005 DM type 2, not at goal 05/08 Dyslipidemia, goal to be determined 10/27/2009 Overview (10/27/2009): Per Lipid Taxonomy. 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 Not on file Not on file Not on file documented as of this encounter Plan of Treatment Upcoming Encounters Date Type Department Care Team (Late st Contact Info) Description 03/15/2025 1:00 PM EDT Appointment Radiology [facility], [address] [address] 07/05/2025 10:20 AM EDT Office Visit Rheumatology [address] [place] [phone] Hiram Gusman MD [address] [employer] [place] [address] 08/26/2025 10:30 AM EDT Office Visit Rheumatology [address] [place] [phone] Sully Melgar CRNP [address] [place] [address] Health Maintenance Due Date Last Done Comments [...] 2024 09/14/2021, 08/14/2020, 09/20/2019, Additional history exists *BISPHONATE OR OTHER ACCEPTABLE MEDICATION NEEDED FOR OSTEOPOROSIS (REFER TO SMARTSET #8105) 12/27/2024 DXA Scan 03/14/2025 03/14/2023, 11/15, 11/30/2017, Additional history exists GFR 09/20/2025 11/26/2024, 05/2024, 09/19/2024, Additional history exists Colonoscopy Discontinued 02/25/2005 Colorectal Cancer Screening Discontinued Pneumococcal Vaccine: 50+ Years Completed 11/01/2019, 10/19/2019, 10/26/2015, Additional history exists VITAMIN D LEVEL ONCE IN A LIFETIME-USE SMARTSET# 49400 Completed 03/01/2022, 01/18/2020, 01/12/2019, Additional history exists Cologuard Discontinued Fecal Occult Blood Test Discontinued HPV (Gardasil) Vaccine Aged Out No lo nger eligible based on patient's age to complete this topic Hepatitis B Vaccine Aged Out No longe r eligible based on patient's age to complete this topic MENINGOCOCCAL (MENACTRA/MENVEO) Aged Out No longer eligible based on patient's age to complete this topic Meningitis B Vaccine (Bexsero/Trumemba) Aged Out No longer eligible based on patient's age to complete this topic Sigmoidoscopy Discontinued documented as of this encounter Medical Devices Not on filedocumented as of this encounter Procedures Procedure Name Priority Date/Time Associated Diagnosis Comments CHEMISTRY-OUTSIDE Routine 11/26/2024 documented in this encounter Results * (ABNORMAL) CHEMISTRY-OUTSIDE (11/26/2024) Not all results display below - see scan for full detail OUTSIDE LAB (SEE SCANNED REPORT) Comment:SCAN INCLUDES - BMP, MG CREATININE 0.82 0.6 - 1.2 MG/DL OUTSIDE LAB (SEE SCANNED REPORT) EGFR 73.63 OUTSIDE LA B (SEE SCANNED REPORT) POTASSIUM 3.8 3.5 - 5.1 MMOL/L OUTSIDE LAB (SEE SCANNED REPORT) GLUCOSE 142(A) 70 - 99 MG/DL OUTSIDE LAB (SEE SCANNED REPORT) HOURS FASTING OUTSID E LAB (SEE SCANNED REPORT) TRIGLYCERIDES-OUT SIDE LAB OUTSIDE LAB (SEE SCANNED REPORT) CHOLESTEROL-OUTSI DE LAB OUTSIDE LAB (SEE SCANNED REPORT) HDL-OUTSIDE LAB OUTS OMID LAB (SEE SCANNED REPORT) CHOL/HDL RATIO-OUTSIDE LAB OUTSIDE LA B (SEE SCANNED REPORT) LDL (CALCULATED)-OUTS OMID LAB OUTSIDE LAB (SEE SCANNED REPORT) LDL (DIRECT MEASURE)-OUTSIDE LAB OUTSIDE LAB (SEE SCANNED REPORT) HEMOGLOBIN, [id number]-[id number] LAB OUTSIDE LAB (SEE SCANNED REPORT) PHOSPHORUS-OUTSID E LAB OUTSIDE LAB (SEE SCANNED REPORT) PTH-OUTSIDE LAB OUTS OMID LAB (SEE SCANNED REPORT) MICROALBUMIN RATIO-OUTSIDE LAB OUTSIDE LA B (SEE SCANNED REPORT) PROTEIN, UA-OUTSIDE LAB OUTSIDE LAB (SEE SCANNED REPORT) HGB OUTSIDE LA B (SEE SCANNED REPORT) 11/26/2024 us Mary Lam MD LABORATORY Final R esult OUTSIDE LAB (SEE SCANNED REPORT) documented in this encounter Advance Directives * Full Code (Latest Code Status on File) Date Activated Date Inactivated Comments 11/03/2007 1:48 PM 11/06/2007 12:28 PM Care Teams Director Of District Office Relationship Specialty Start Date End Date Mary Lam MD [address] [place] [address] PCP - General Family Medicine 05/23/15 documented as of this encounter
--- OUTSIDE RECORDS SUMMARY | 2025-01-10 10:28 | External Medical Summary | Summary of Care ---
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 [employer] Name Role Phone Mary Lam MD Primary Care Provider Reason for Visit * Reason Onset Date Comments Medication Refill 12/27/2024 Encounter Details Date Type Department Care Team (Late st Contact Info) Description 12/27/2024 Refill [address] [place] [phone] Catrachita Zelaya CRNP [address] [place] [address] [place] [address] Rheumatoid arthritis involving multiple sites with positive rheumatoid factor (HCC) Allergies Active Allergy Reactions Criticality Noted Date Comments Other - Environmental 10/21/2004 Dogs and cats, eyes getting itchy and watery, has dogs and a cat, pt taking allergy medication documented as of this encounter (statuses as of 12/27/2024) Medications ASPIRIN 81 MG PO TABS one tab by mouth daily 100 Tab 0 5 Active MEDICAL INSTRUCTIONSIndi cations:Arthriti s, rheumatoid (HCC) VNA consult for nursing, home PT/OT. dx: status bilateral knee replacements, DM, HTN, RA 1 Each 1 5 Active CALCIUM CARBONATE 600 MG PO TABSIndications: Arthritis, rheumatoid (HCC) one daily 30 Tab 0 5 Active MULTI-VITAMIN PO TABSIndications: Knee joint replacement status 1 daily 100 Tab [...] 250 MG Oral Capsule Take by mouth. Active Cinnamon 500 MG Oral Capsule Take 1 [...] daily Active Methotrexate Sodium 2.5 MG Oral TabletIndication s:Rheumatoid arthritis involving multiple sites with positive rheumatoid factor (HCC) Take 7 Tablets by mouth once a week. 96 Tablet 5 Active Methotrexate Sodium 2.5 MG Oral TabletIndication s:Rheumatoid arthritis involving multiple sites with positive rheumatoid factor (HCC) Take 7 Tablets by mouth once a week. 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 Thanks, J Luis Fernandez, PharmD Clinical Pharmacist [facility] [phone] 12/27/2024 3:38 PM * Telephone Encounter - Karina Brewer LPN - 12/27/2024 3:07 PM EST [facility] requesting [facility] 90 day [facility] Pending Prescriptions: Disp Refills Methotrexate Sodium 2.5 MG Oral Tablet 96 Tab*0 Sig: Take 7 Tablets by mouth once a week. Last Visit: 12/24/2024 (in office), Visit date not found (telemedicine) Next Visit: 07/05/2025 Patient Active Problem List Diagnosis Allergic rhinitis Advance directive on file Malignant neoplasm of corpus uteri (HCC) Encounter for long-term (current) use of medications Type 2 diabetes mellitus with hemoglobin A1c goal of less than 7.0% (HCC) DYSLIPIDEMIA, GOAL LDL BELOW 100 Severe obesity with body mass index (BMI) of 35.0 to 39.9 with serious comorbidity (HCC) HTN, GOAL BELOW 140/80 Murmur, cardiac Knee joint replacement status S/P knee replacement Rheumatoid arthritis involving multiple sites with positive rheumatoid factor (HCC) Senile osteoporosis documented in this encounter Plan of Treatment Upcoming Encounters Date Type Department Care Team (Late st Contact Info) Description 03/15/2025 1:00 PM EDT Appointment Radiology [facility], [place] [address] 07/05/2025 10:20 AM EDT Office Visit Rheumatology [address] [place] [phone] Hiram Gusman MD [address] [place] [address] 08/26/2025 10:30 AM EDT Office Visit Rheumatology [address] [place] [phone] Catrachita Zelaya CRNP [address] [place] [address] Health Maintenance Due Date Last Done Comments [...] MEDICATION NEEDED FOR OSTEOPOROSIS (REFER TO SMARTSET #1146) 12/27/2024 DXA Scan 03/14/2025 03/14/2023, 11/15, 11/30/2017, Additional history exists GFR 09/20/2025 09/20/2024, 04/2024, 04/30/2024, Additional history exists Colonoscopy Discontinued 02/25/2005 Colorectal Cancer Screening Discontinued Pneumococcal Vaccine: 50+ Years Completed 11/01/2019, 10/19/2019, 10/26/2015, Additional history exists VITAMIN D LEVEL ONCE IN A LIFETIME-USE SMARTSET# 31333 Completed 03/01/2022, 01/18/2020, 01/12/2019, Additional history exists [...] 1:48 PM 11/06/2007 12:28 PM Care 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 [address] PCP - General Family Medicine 05/23/15 documented as of this encounter
--- NOTE | 2025-01-10 10:37 | XRay Report ---
XR chest 1V portable CLINICAL HISTORY: syncope COMPARISON STUDY: 07/11/2024 FINDINGS: Cardiac loop recorder is present. Heart size and pulmonary vasculature are normal. No effus ion, consolidation, or pneumothorax. IMPRESSION: No acute findings. ACT 112: Negative or not required by law. Electronically signed by: August Leonardo M.D. 01/10/2025 10:35 AM
--- NOTE | 2025-01-10 10:49 | History & Physical Report ---
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 She presented on 01/10 for an unresponsive episode at morning. Patient woke up feeling normal. Around 8:30 AM, she went to the bathroom, and rode her stair chair down the steps. When she got to the bottom, she got up and felt dizzy, and told her she needed to sit down. She then placed her head down on the table, and had to hold her up that she lost consciousness. No fall or head strike. reports that she was out for approximately 5 minutes. Just prior to passing out, reports that her eyes rolled into the back of her head. #Unresponsive episode H/o recurrent unresponsive episodes (most recently being in June and September 2024) ? Secondary to focal seizures DDx on arrival includes seizure, orthostasis, cardiac syncope, and cardiac arrhythmia (among other etiologies) Given patient's "eyes rolled back into her head", and her symptoms were similar to prior seizure in September 2024, suspect seizure as leading dx on admission Patient currently has a loop recorder; will work with EP lab to obtain records Echocardiogram ordered, pending (last echo in June showed moderate ) Orthostatic vitals ordered Seizure precautions Ativan 2 mg IV q5m x 3 max doses on-call for active seizure-like activity Continuous telemetry monitoring #Focal epilepsy Note: Patient had a negative EEG in September 2024 Patient is normally on Keppra 500 mg p.o. BID She reports no missed doses in the week prior to admission Per neurology recommendation, Keppra 1 g IV x 1 Increase Keppra to 750 mg p.o. BID Neurology consult appreciated #Hypomagnesemia Mild; mag 1.5 on arrival Magnesium sulfate 1 mg IV x 2 Recheck a.m. mag Disposition: Obs - MedSurg telemetry Full code Regular diet VTE PPx: SCDs History of Present Illness Chief Complaint: Lethargic, unresponsive episode Primary Care Provider: Mary Lam MD Sue is a 79-year-old female with PMH of recurrent syncope, aortic valvular stenosis, PVCs, cardiomyopathy, and focal epilepsy. She presented on 01/10 for an unresponsive episode at morning. Patient woke up feeling normal. Around 8:30 AM, she went to the bathroom, and rode her stair chair down the steps. When she got to the bottom, she got up and felt dizzy, and told her she needed to sit down. She then placed her head down on the table, and had to hold her up that she lost consciousness. No fall or head strike. reports that she was out for approximately 5 minutes. Just prior to passing out, reports that her eyes rolled into the back of her head. Patient then began to have labored breathing. There was no witnessed convulsions, jerking, tongue biting, or loss of urinary continence. However, patient's reports that there was no convulsions during her last seizure episode in September. In September, the patient was at a restaurant with her , when she lost consciousness for approximately half an hour; during that episode, she did not regain consciousness until she was in the hospital. She did experience muscle tightness during both episodes. She did not appear to have a postictal state today, as she was able to converse with EMS upon arrival. Patient did not take her regular morning medicine today; no recent change in medications. She reports good compliance with taking her Keppra twice daily, and has not missed any doses in the past week. She denies prior history of strokes, or strokelike symptoms today such as slurred speech, facial droop, or unilateral deficits. Patient currently follows with cardiology and has a loop recorder, but reports that all heart monitoring tests have been negative so far. She also follows with neurology, and was told that she has "scarring" on her brain. No prior history of vertigo. Patient denies smoking, tobacco use, recent alcohol use. Per EMS, patient was hypoxic at 80% on RA, and she was placed on 4L NC en route. Patient's vitals are stable at time of admission. ED course: ROS: Patient endorses dizziness, lightheadedness, and brief episode of syncope. Patient denies fever, chills, night-sweats, headache, changes in vision, tinnitus, changes in taste/smell, rashes, tick bites, chest pain, chest palpitations, SOB, pleuritic chest pain, cough, abdominal pain, N/V/D, changes in urinary bowel habits, burning with urination, blood in the urine or stool, or numbness or tingling in arms or legs. Allergies Allergy/AdvReac Type Severity Reaction Status Date / Time No Known Allergies Allergy Unverified 11/26/24 11:42 Home Medications Medication Instructions Recorded Confirmed Type methotrexate sodium 2.5 mg tablet 20 mg PO WEEKLY 09/22/20 01/10/25 History potassium chloride 10 mEq 10 meq PO DAILY 10/31/23 01/10/25 History tablet,extended release aspirin 81 mg tablet,delayed 81 mg PO DAILY 06/06/24 01/10/25 History release calcium carbonate 500 mg PO DAILY 06/06/24 01/10/25 History methenamine hippurate 1 gram 1 g PO UD 06/06/24 01/10/25 History tablet (Hiprex) multivitamin 1 tab PO DAILY 06/06/24 01/10/25 History magnesium 1 tab PO DIRECTED 07/11/24 01/10/25 History levetiracetam 500 mg tablet 500 mg PO BID 30 days #60 tabs 09/26/24 01/10/25 Rx (Keppra) metoprolol succinate 25 mg 25 mg PO DAILY #90 tabs 11/09/24 01/10/25 Rx tablet,extended release 24 hr nitrofurantoin macrocrystal 50 mg 50 mg PO HS #90 caps 11/12/24 01/10/25 Rx capsule Past Med/Surg History Problem List (Updated 01/10/25 @ 11:36 by Jose Alejandro sEcobar PA-C) Hypomagnesemia Unresponsive episode 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 Encounter for interrogation of cardiac recorder Seizure-like activity Convulsive syncope Recurrent syncope (Acute) Mitral regurgitation Aortic valve stenosis with insufficiency (Acute) Lightheadedness Frequent PVCs Cardiomyopathy ETD (eustachian tube dysfunction) Sensorineural hearing loss (SNHL) of both ears Hyponatremia (Chronic) Bilateral hearing loss (Chronic) History of squamous cell carcinoma in situ of skin Osteoarthritis, knee (Chronic 12/24/14) Medical History Aortic valve sclerosis Malignant neoplasm of uterus Rheumatoid arthritis Bilateral otitis media with spontaneous rupture of eardrum HTN (hypertension) Surgical History History of hernia repair S/P knee replacement S/P hysterectomy S/P cholecystectomy Family History Grandfather Stroke Aunt Cancer Other Asthma No family history of bleeding disorder Denies family history of Ovarian cancer Prostate cancer Heart disease Myocardial infarction Breast cancer Colorectal cancer Hypertension Social History Smoking Status: Never smoker Second Hand Exposure: No; Do You Dip or Chew Tobacco: No; Hx Alcohol Use: No Hx Substance Use: No Preferred Language: German Communication Ability: Effective Visual Impairment: No Limitations Hearing Ability: Use of Hearing Aid Cartridge Belt Puncher Required: No Beliefs That Will Affect Care: None marital status: Current Living Situation: Spouse Current Living Situation Comment: At home w/ current occupational status: retired 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 How many Children do You have: 6 Feels Safe at Home: Yes Childhood Exposure to Second-Hand Smoke: Yes Diet: regular Dental Care, Regularly: Yes Physical Activity Frequency: Daily Seatbelt Use: always Sunscreen Use: Yes Assistive Devices: Cane, Hearing Aid - Bilateral and Walker Review of Systems Review of Systems: See HPI above Physical Exam Physical Exam: General: no acute distress; at bedside; frail appearing; well-nourished; cooperative; SpO2 96% on RA HEENT: normocephalic, atraumatic; no scleral icterus; PERRLA w/ EOMs intact; vision and hearing grossly intact Neck: supple; no lymphadenopathy; trachea midline; patient demonstrates weak to shrug shoulders and rotate neck against resistance without UNILAT deficits Skin: warm, dry without signs of tenting; no cyanosis; no rashes, bruising, lesions, or erythema noted CV: chest wall NTP; RRR; S1/S2 normal; 3/6 systolic ejection murmur auscultated at the second ICS MCL; pulses intact and symmetric at radial, DP, and PT Lungs: no acute respiratory distress; symmetrical chest wall expansion; clear breath sounds across all lung whitaker w/o adventitious sounds; no wheezing ABD: Soft, NTP; BS present; no rebound/guarding; no distention MSK: no tics or fasciculations; no edema noted in the LEs b/l, nonerythematous; 5/5 product ambassador strength bilaterally; patient demonstrates ability wiggle toes/plantarflex/dorsiflex/lift legs bilaterally without unilateral deficits Neuro: A&Ox3; normal mood and affect; fluent speech; no focal deficits; no facial droop; sensation intact and symmetric in the upper extremities and lower extremity bilaterally Results & Data Results & Data Vital Signs (Past 12 Hours) Vital Signs Temp Pulse Resp BP Pulse Ox O2 Del Method 01/10/25 10:15 62 20 135/80 96 Room Air 01/10/25 10:01 65 135/106 H 95 Room Air 01/10/25 09:46 65 18 156/90 H 96 Room Air 01/10/25 09:35 87 01/10/25 09:13 Room Air 01/10/25 09:13 36.8 C 71 20 141/83 H 97 Room Air Laboratory Results Abnormal lab results 01/10/25 Range/Units 09:22 RBC 3.73 L (4.20-5.40) M/uL Hct 36.6 L (37.0-47.0) % RDW Std Deviation 49.1 H (36.4-46.3) fL Lymph # (Auto) 1.18 L (1.20-3.40) K/uL [place] # (Auto) 0.63 H (0.11-0.59) K/uL Glucose 153 H (70-99(Fasting)) mg/dl Magnesium 1.5 L (1.7-2.4) mg/dl Total Bilirubin 1.2 H (0.2-1.0) mg/dl Albumin 3.2 L (3.4-5.0) gm/dl Diagnostic Findings Head CT 01/10/25 09:23 CT head/brain wo con CLINICAL HISTORY: 79 years-old Female with syncope. Acute syncope TECHNIQUE: Multiple axial CT images of the head were obtained without contrast. A dose lowering technique was utilized adhering to the principles of ALARA. CT DOSE: 547.75 mGy.cm COMPARISON: Brain MRI 09/19/2024 FINDINGS: No acute intracranial hemorrhage, midline shift, intracranial mass, h ydrocephalus, territorial ischemia or abnormal extra-axial collection. Involutional changes with chronic microvascular ischemic disease. Chronic right basal ganglia lacunar infarcts. Cerebral vascular calcifications. The calvarium is intact. The paranasal sinuses, mastoid air cells, and middle ear cavities are clear. IMPRESSION: No acute intracranial abnormality. ACT 112: Negative or not required by law. The above report was generated using voice recognition software. It may contain grammatical, syntax or spelling errors. Electronically signed by: Carl Germain M.D. 01/10/2025 9:49 AM Chest X-Ray 01/10/25 09:24 XR chest 1V portable CLINICAL HISTORY: syncope COMPARISON STUDY: 07/11/2024 FINDINGS: Cardiac loop recorder is present. Heart size and pulmonary vasculature are normal. No effusion, consolidation, or pneumothorax. IMPRESSION: No acute findings. ACT 112: Negative or not required by law. Electronically signed by: August Leonardo M.D. 01/10/2025 10:35 AM ECG Additional Comments: ECG revealed NSR at 67 bpm; QTc 424 Code Status & VTE Plan Code Status Full code VTE Prophylaxis Plan VTE Prophylaxis will be ordered: Yes Supervising Physician Co-Signing Physician Notes I have personally seen, evaluated and examined the patient. I have also personally discussed the management of the patient with the resident physician/ALEXIS and I agree with the exam findings documented in the history and physical examination and the documented assessment and plan unless otherwise stated below. Brief Exam: In general very pleasant 79-year-old female. She is alert and oriented x 3 at the time my exam. She is accompanied by her at the time of my examination. states she was seated in a chair. Eyes rolled back in her head. There was no outward tonic-clonic activity. He did hold her up in the chair and lower her torso to the table. There was no loss of bowel or bladder continence. There was no tongue bite. Question possible seizure versus cardiogenic syncope. HEENT: Normocephalic atraumatic. Heart: Regular rate and rhythm. 3 out of 6 systolic murmur appreciated the right sternal border.. Lungs: Clear. Abdomen: Soft nontender positive bowel sounds. Extremities: Intact changes of arthritis in her hands noted. No appreciable peripheral edema. Neurologically: She is alert and orient x 3 feels her normal self. States that she has not had a seizure since they started Keppra. However, she is on a fairly low-dose of 500 mg twice daily. Plan: As described above. Neurology consulted. Increase Keppra maintenance dose to 750 twice daily with the 1 g IV loading dose x 1. Seizure precautions. We are awaiting cardiology's feedback for loop recorder data to see if there is any dysrhythmias during the event today. Will continue to watch her on telemetry. Review of echocardiogram from July 12, 2024 reveals moderate to severe aortic stenosis. Mean gradient was 24. Valve area was 0.8. We will repeat an echocardiogram to check fore progression. Pending loop recorder data and echocardiogram we may entertain cardiology consultation. Please refer to orders for further planning. 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
[2025-01-10] MEDS ORDERED: LORazepam 2 MG/1 ML VIAL IV PRN (11:19)
[2025-01-10] MEDS: MAGNESIUM SULFATE / D5W 1 GM/100 ML BAG IV SCH (11:40)
[2025-01-10] MEDS: METOPROLOL SUCC 25MG EXT REL TAB PO ONE (13:06)
[2025-01-10] MEDS: ASPIRIN 81 MG ECTAB PO ONE (13:06)
[2025-01-10] MEDS: levETIRAcetam 500 MG/5 ML VIAL IV STA (13:06)
[2025-01-10] MEDS ORDERED: ONDANSETRON INJ 2 MG/ML 2 ML VIAL IV PRN (14:54)
[2025-01-10] MEDS ORDERED: ACETAMINOPHEN 325 MG TAB PO PRN (14:54)
--- NOTE | 2025-01-10 15:14 | XCELERA ---
[id number] \\[id number]
[2025-01-10] MEDS: levETIRAcetam 250 MG TAB PO SCH (20:14)
[2025-01-10] MEDS: nitrofurantoin macrocrystaL 50 MG CAP PO SCH (20:14)
--- NOTE | 2025-01-10 21:39 | Electrocardiogram Report ---
Test Reason : Blood Pressure : */* mmHG Vent. Rate : 67 BPM Atrial Rate : 67 BPM P-R Int : 168 ms QRS Dur : 86 ms QT Int : 402 ms P-R-T Axes : 63 7 52 degrees QTcB Int : 424 ms Normal sinus rhythm Nonspecific ST abnormality Abnormal ECG When compared with ECG of 20-Sep-2024 04:26, Vent. rate has decreased by 34 bpm Nonspecific T wave abnormality, improved in Anterolateral leads Confirmed by Sandor Farah ([id number]) on 01/10/2025 9:38:42 PM Referred By: REFERRED SELF Confirmed By: Sandor Farah
[2025-01-11 02:15] LABS: Appearance Urine Clear (Clear); Bacteria Urine Automated None Seen (None Seen); Bilirubin Urine Negative (Negative); Blood Urine Negative (Negative); Cast Urine Automated 0-2 /lpf (0-2); Color Urine Yellow; Epithelial Cell Urine Auto 0-2 /hpf (0-2); Glucose Urine UA Negative (Negative); Ketones Urine Negative (Negative); Leukocyte Esterase Urine Trace (Negative); Nitrite Urine Negative (Negative); Protein Urine Negative (Negative); RBC Urine Automated 0-2 /hpf (0-2); Specific Gravity Urine 1.011 (1.000-1.030); Urobilinogen Urine Negative (Negative); WBC Urine Automated 0-5 /hpf (0-5)
[2025-01-11 06:31] LABS: Hemoglobin 11.7 g/dl (12.0-16.0); Mean Corpuscular Hemoglobin 33.3 pg (25.0-34.0); Mean Corpuscular Hgb Conc 34.4 g/dL (32.0-36.0); Mean Corpuscular Volume 96.9 fL (80.0-100.0); Mean Platelet Volume 9.7 fL (9.4-12.4); Platelet Count 229 K/uL (130-400); RDW Coefficient of Variation 13.9 % (11.5-14.5); RDW Standard Deviation 48.1 fL (36.4-46.3); Red Blood Count 3.51 M/uL (4.20-5.40); White Blood Count 6.62 K/ul (4.8-10.8)
[2025-01-11 06:54] LABS: BUN Creatinine Ratio 16.9 (10-20); Calcium 8.2 mg/dl (8.6-10.3); Creatinine Clr Calc Pharmacy 69.5 ml/min; Magnesium 1.7 mg/dl (1.7-2.4)
[2025-01-11 07:34] VITALS: O2SAT 96
--- NOTE | 2025-01-11 08:27 | Neurology Consultation ---
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 She had another episode January 10, consisting of significant lightheadedness and some loss of consciousness. There were some seizure-like phenomena including some clenching of the muscles and eye rolling. She ended up passing out in a seated position. She has had no further episodes since coming to the emergency room and she is back to baseline clinically. Levetiracetam level July 14 was 18.3 (normal 6-46). She tolerates the levetiracetam well. The patient has moderate chronic cerebral ischemia with old small vessel ischemic disease noted on most recent MRI September 2024. The patient has multiple cardiac issues and has a loop recorder implanted. Recommendations: 1. Agree with the increase in levetiracetam to 750 mg twice a day. 2. Consideration could be given to switching her to (or adding) lamotrigine, but I will defer this to Dr. Campos as an outpatient. 3. Check a trough levetiracetam level in 2 to 3 weeks 4. There is no need for EEG or MRI in this patient, at this time. 5. Continue 81 mg aspirin to prevent small vessel ischemic disease. 6. Follow-up with neurology (Nikky Villalta PA-C) in 2 to 3 weeks after discharge. 7. The loop recorder could be interrogated to find out if she had any cardiac issues 8. Otherwise, I have no further recommendations and please contact me if I can be of further assistance on this case Overall, I spent a total of 75 minutes on this case including review of records, review of CT and MRI films, direct evaluation with patient at bedside, report generation, and discussion of the case with the patient and RN at bedside, and Dr. Lancaster including differential diagnosis and treatment options bilaterally. History of Present Illness Reason for Consultation: Patient is a 79-year-old, who was asked to see at the request of Jose Alejandro Escobar PA-C, for neurologic consultation regarding unresponsive episode and history of seizure disorder. Requesting Physician: Jose Alejandro Escobar PA-C Attending Physician: Chapito Lancaster MD History of Present Illness This patient has a history of unusual episodes with syncope and shaking over the last 2 years. The patient had an MRI which showed old small vessel ischemic disease and an EEG which was unremarkable both in October 2023. More recently she had an episode in June 2024 and then again in September 2024. During that hospitalization in September she had a history of being very dizzy and then losing consciousness. During this she clenched her hands and had generalized shaking for 15 to 30 seconds with prolonged sleepiness thereafter. She had no incontinence or tongue biting. An MRI of the brain showed old lacunar infarcts in the right thalamus and left frontoparietal regions with some hippocampal atrophy and moderate old small vessel ischemic disease. I reviewed these films. An EEG was unremarkable. CT angiography of the head neck were unremarkable as well. The patient was placed on levetiracetam 500 mg twice a day. The patient was seen by cardiology and has a cardiac loop recorder implanted. As an outpatient, in November 2024, she had a 72-hour ambulatory EEG which was positive for focal epilepsy emanating from the right temporal lobe. A levetiracetam level December 14, 2024 was 18.3 (normal 6-46). The patient did well up until January 10. She woke up at 0730 feeling lightheaded. She had no vertigo, blurry vision, weakness, speech, mentation, or numbness. She remembers doing her daily hygiene routine, getting dressed, and coming downstairs to eat breakfast. Somewhere around 8-8 30 the dizziness (lightheadedness) became significantly worse. She sat down at the kitchen table and called to her . Currently she passed out and had seizure-like activity, consisting of her eyes rolling in the back of her head and labored breathing. There was tightness of the limbs but no jerking. There was no incontinence or tongue biting. She was sleepy thereafter. She does not recall any of this event but does remember the EMS coming to the house and traveling to the ER. She ride to the emergency room at 0913 with a temperature 36.8, pulse 71 and regular, respiratory rate 20, blood pressure 141/83, and O2 saturation 97%. Her exam was without any focal neurologic findings, meningeal signs, or encephalopathy. She was alert and oriented. CBC and CHEM profile were unremarkable. Magnesium was mildly low at 1.5. Echocardiogram was similar to previous study of July 12, 2024. CT scan of the head revealed no acute changes. I reviewed these films Chest x-ray was unremarkable. Patient received 1 g levetiracetam IV and a dose has been increased to 750 mg twice a day. Nursing reports no changes overnight. This morning, the patient feels back to baseline, with no headache, pain of a new nature, confusion, speech issues, dizziness or lightheadedness, vision issues, weakness, numbness, or worsening gait. CBC and CHEM profile were unremarkable. Urinalysis was unremarkable. Blood pressure this morning was 123/70. Allergies Allergy/AdvReac Type Severity Reaction Status Date / Time No Known Allergies Allergy Unverified 11/26/24 11:42 Home Medications Medication Instructions Recorded Confirmed Type methotrexate sodium 2.5 mg tablet 20 mg PO WEEKLY 09/22/20 01/10/25 History potassium chloride 10 mEq 10 meq PO DAILY 10/31/23 01/10/25 History tablet,extended release aspirin 81 mg tablet,delayed 81 mg PO DAILY 06/06/24 01/10/25 History release calcium carbonate 500 mg PO DAILY 06/06/24 01/10/25 History methenamine hippurate 1 gram 1 g PO UD 06/06/24 01/10/25 History tablet (Hiprex) multivitamin 1 tab PO DAILY 06/06/24 01/10/25 History magnesium 1 tab PO DIRECTED 07/11/24 01/10/25 History levetiracetam 500 mg tablet 500 mg PO BID 30 days #60 tabs 09/26/24 01/10/25 Rx (Keppra) metoprolol succinate 25 mg 25 mg PO DAILY #90 tabs 11/09/24 01/10/25 Rx tablet,extended release 24 hr nitrofurantoin macrocrystal 50 mg 50 mg PO HS #90 caps 11/12/24 01/10/25 Rx capsule Patient History Medical History Frequent urinary tract infections Diabetes mellitus type 2, diet-controlled Aortic valve sclerosis Malignant neoplasm of uterus Rheumatoid arthritis Bilateral otitis media with spontaneous rupture of eardrum HTN (hypertension) Surgical History History of hernia repair S/P knee replacement S/P hysterectomy S/P cholecystectomy Family History Grandfather Stroke Aunt Cancer Mother , age 90 with heart issues Heart disease Father , age 85 of uncertain issues. Hypertension Other Asthma No family history of bleeding disorder Denies family history of Ovarian cancer Prostate cancer Myocardial infarction Breast cancer Colorectal cancer Social History Smoking Status: Never smoker Second Hand Exposure: No; Do You Dip or Chew Tobacco: No; Hx Alcohol Use: No Hx Substance Use: No Preferred Language: German Communication Ability: Effective Visual Impairment: No Limitations Hearing Ability: Use of Hearing Aid Sourcing Consultant Required: No Beliefs That Will Affect Care: None marital status: Current Living Situation: Spouse Current Living Situation Comment: At home w/ current occupational status: retired 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 How many Children do You have: 6 Feels Safe at Home: Yes Safety Concerns: Feels Safe At This Time Childhood Exposure to Second-Hand Smoke: Yes Diet: regular Dental Care, Regularly: Yes Physical Activity Frequency: Daily Seatbelt Use: always Sunscreen Use: Yes Assistive Devices: Walker Review of Systems Constitutional: no fever, no fatigue and no weakness Eyes: no diplopia, no eye pain and no worsening vision Ear, Nose, Mouth, Throat: no ear pain, no tinnitus, no hearing loss, no dizziness, no snoring, no hoarseness and no dysphagia Respiratory: no cough and no dyspnea Cardiovascular: no chest pain, no palpitations and no lightheadedness Gastrointestinal: no abdominal pain, no nausea and no vomiting Genitourinary: no dysuria, no urinary frequency and no urinary incontinence Musculoskeletal: + joint pain (Distal joint deformities f rom rheumatoid arthritis.); no back pain, no neck pain, no radicular pain and no myalgia Integumentary: no rash and no lesions Neurologic: no gait abnormality, no localized weakness, no generalized weakness, no tingling, no numbness, no tremor(s), no abnormal movements, no headache(s), no abnormal speech, no confusion and no memory loss Psychiatric: no depression, no irritability, no anxiety, no difficulty concentrating, no confusion and no hallucinations Endocrine: no fatigue and no flushing Hematologic / Lymphatic: no easy bleeding and no easy bruising Allergy / Immunological: no urticaria and no problem reported Exam (Neuro) Physical Exam: The patient is right-handed. The patient is awake, alert, and attentive. Speech is normal without any aphasia or dysarthria. Mentation and thought processes are intact, with full orientation and normal fund of knowledge. Mood and affect are normal and appropriate. Appearance and grooming are normal. Short and long-term memory are intact. Pupils are 4 mm bilaterally and reactive to light. Extraocular eye muscles are intact without nystagmus. Visual acuity and visual whitaker seem normal grossly to confrontation. There are no deficits to sensation in the face in all 3 distributions of the fifth cranial nerve bilaterally. Corneal reflexes are positive bilaterally. Facial strength and symmetry was normal bilaterally. Hearing seems intact grossly to voice and finger rub bilaterally. Palate moves well without asymmetry. There is normal sternocleidomastoid and trapezius strength bilaterally. Tongue is midline with good strength bilaterally. Neck has a full range of motion without discomfort. There are no cervical bruits bilaterally. There are no cranial or ocular bruits. Heart is without murmur. There is a regular rhythm and rate. Cervical, thoracic, and lumbar spine are nontender to palpation. Gait was not tested but stance sitting up in bed is normal. With outstretched arms there is no drift. There are no resting, postural, or action tremors. There is no ataxia with finger to nose testing. There is decreased facility in the hands because of the significant joint deformities from her rheumatoid arthritis. No other abnormal involuntary movements are noted. Motor strength is 5/5 diffusely in the arms bilaterally including deltoids, biceps, triceps, brachioradialis, wrist flexors and extensors. Intrinsic hand muscles and male infertility specialist is 4/5 due to the significant joint deformities from rheumatoid arthritis. Motor strength is 5/5 diffusely in the legs bilaterally including hip flexors, quadriceps, hamstrings, gastrocnemius, tibialis anterior, tibialis posterior, and Peroneii muscles bilaterally. Toe extensors are normal and there is good bulk in the extensor digitorum brevis muscles bilaterally. The limbs have good tone without rigidity or spasticity. There is no atrophy noted in the muscles. Muscle bulk is normal, there is no tenderness to palpation, no myotonia to percussion, and no fasciculations seen. Sensory examination is intact to touch and pin throughout all 4 limbs diffusely. Reflexes are 2/4 in the biceps, triceps, brachioradialis, and quadriceps tendons bilaterally. Achilles tendon reflexes are 1/4 bilaterally. Toes are downgoing with plantar stimulation bilaterally. Peripheral pulses are present and of normal quality distally in all 4 limbs. There is no peripheral edema noted in the limbs. Results & Data Vital Signs (Past 12 Hours) Vital Signs Temp Pulse Pulse Resp BP Pulse Ox O2 Del Method 01/11/25 07:34 36.6 C 56 L 18 123/70 96 Room Air 01/11/25 07:33 36.6 C 56 L 18 123/70 96 Room Air 01/11/25 05:45 63 01/11/25 03:33 36.4 C L 97 H 18 97/65 L 93 Room Air 01/10/25 23:23 36.5 C 68 18 99/71 L 92 Room Air 01/10/25 21:43 67 PG Care Time/CCT Total # of Minutes Spent Total Time Spent with Patient: Total time spent is greater than 50% in coordination of care (as documented) at patient's floor/unit and/or counseling patient: Coding Level of Care Code 20968 INT INP/OBS CARE 375MIN Diagnoses 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
[2025-01-11] MEDS: METOPROLOL SUCC 25MG EXT REL TAB PO SCH (09:11)
[2025-01-11] MEDS: ASPIRIN 81 MG ECTAB PO SCH (09:11)
[2025-01-11] MEDS: POTASSIUM CHLORIDE 10 MEQ TABCR PO SCH (09:14)
[2025-01-11 10:28] VITALS: BP 142/73; PULSE 73; RESP 16; TEMP 98.2
--- NOTE | 2025-01-11 11:28 | Discharge Summary ---
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 She presented on 01/10 for an unresponsive episode at morning, woke up feeling normal and then had dizziness prior to episode of unresponsiveness. She lost consciousness, no fall or head strike and called 911. H/o recurrent unresponsive episodes (06/2024 and 09/2024), has been complaint with her keppra at home. Orthostatic VS barely positive, but not hypotensive and asymptomatic. Echocardiogram stable from prior, 06/2024 (discussed with Dr. Davila regarding the notation of hypokinesis, the motion on the images is almost exactly the same and discussed with Dr. Hernandez, just interpreted differently). Loop recorder without arrhythmia, did have some sinus bradycardia on 01/10, but time was not listed and only lasted 39 seconds. Evaluated by Neurology - increase Keppra to 750mg BID. Follow up with neuro PA i n 2-3 weeks. No EEG or MRI needed. Check kepra level in 2-3 weeks. #Hypomagnesemia Mild; mag 1.5 on arrival - replete. Continue home PO supplementaion Dispo: discharge to home today Discussed with Dr. Posey Notes For Next Care Provider check keppra level in 2-3 weeks Medication Changes From Visit increased keppra to 750mg BID Admission HPI Per Admitting Provider Sue is a 79-year-old female with PMH of recurrent syncope, aortic valvular stenosis, PVCs, cardiomyopathy, and focal epilepsy. She presented on 01/10 for an unresponsive episode at morning. Patient woke up feeling normal. Around 8:30 AM, she went to the bathroom, and rode her stair chair down the steps. When she got to the bottom, she got up and felt dizzy, and told her she needed to sit down. She then placed her head down on the table, and had to hold her up that she lost consciousness. No fall or head strike. reports that she was out for approximately 5 minutes. Just prior to passing out, reports that her eyes rolled into the back of her head. Patient then began to have labored breathing. There was no witnessed convulsions, jerking, tongue biting, or loss of urinary continence. However, patient's reports that there was no convulsions during her last seizure episode in September. In September, the patient was at a restaurant with her , when she lost consciousness for approximately half an hour; during that episode, she did not regain consciousness until she was in the hospital. She did experience muscle tightness during both episodes. She did not appear to have a postictal state today, as she was able to converse with EMS upon arrival. Patient did not take her regular morning medicine today; no recent change in medications. She reports good compliance with taking her Keppra twice daily, and has not missed any doses in the past week. She denies prior history of strokes, or strokelike symptoms today such as slurred speech, facial droop, or unilateral deficits. Patient currently follows with cardiology and has a loop recorder, but reports that all heart monitoring tests have been negative so far. She also follows with neurology, and was told that she has "scarring" on her brain. No prior history of vertigo. Patient denies smoking, tobacco use, recent alcohol use. Per EMS, patient was hypoxic at 80% on RA, and she was placed on 4L NC en route. Patient's vitals are stable at time of admission. ED course: ROS: Patient endorses dizziness, lightheadedness, and brief episode of syncope. Patient denies fever, chills, night-sweats, headache, changes in vision, tinnitus, changes in taste/smell, rashes, tick bites, chest pain, chest palpitations, SOB, pleuritic chest pain, cough, abdominal pain, N/V/D, changes in urinary bowel habits, burning with urination, blood in the urine or stool, or numbness or tingling in arms or legs. Discharge Exam General: NAD, VS as above Resp: normal respiratory effort, lungs clear to auscultation CV: RRR, no murmur, Abd: normal bowel sounds, non tender, no hepatosplenomegaly Extremities: Moves all extremities, mild edema but non pitting Neuro: A&O x3, no focal deficits Skin: intact, no lesions noted Discharge Plan Discharge Items Patient Disposition: Home - Self-Care Reason For Visit: UNRESPONSIVE EPISODE, SEIZURE Discharge Diagnosis: unreponsive episode - likely seizure Activity: Resume your previous activity Driving/Machine Use: No driving Weightbearing: Full weightbearing Non-emergency contact: Primary Care Provider and Neurologist Call non-emergency contact if: you have any medication questions, your symptoms worsen, your pain is worsening and your temperature is above 101 Follow-up/Referrals: Mary Lam MD [Primary Care Provider] - (follow up within one week ) Nikky Villalta PA [Physician [facility]] - (Follow up 2- 3 weeks ) Diet: Regular Addtl Attending Provider Instructions: Ms. Castrejon, You were hospitalized after an unresponsive event at home, this was likely a seizure. For this reason, we have increased your Keppra to 750mg twice a day. We did a echocardiogram (heart ultrasound) and looked at your loop recorder and did not find any cardiac cause for your episode. Recommendations: * Increase Keppra to 750mg twice a day * Follow up with neurology PA in 2-3 weeks. They should call you with an appointment, if you do not hear from them by Monday 01/15, please call the number above. * Follow up with PCP within one week. * Do not drive Pending Studies at Discharge: No Stand-Alone Forms: My [facility] [place], Smoking Cessation Medications and DC Order Prescriptions: New levetiracetam [Keppra] 750 mg tablet 750 mg PO BID 30 Days Qty: 60 0RF Continued metoprolol succinate 25 mg tablet extended release 24 hr 25 mg PO DAILY Qty: 90 3RF nitrofurantoin macrocrystal 50 mg capsule 50 mg PO HS Qty: 90 1RF Rx Instructions: must administer with a meal/food. Take one capsule daily at bedtime. methotrexate sodium 2.5 mg tablet 20 mg PO WEEKLY Patient Comments: PO WEEKLY; Rx Instructions: on Mondays potassium chloride 10 mEq tablet extended release 10 meq PO DAILY Dose Instruction: TAKE 2 TABLETS BY MOUTH DAILY FOR HYPOKALEMIA Rx Instructions: TAKE 1 TABLETS BY MOUTH DAILY FOR HYPOKALEMIA methenamine hippurate [Hiprex] 1 gram tablet 1 g PO UD Rx Instructions: spouse thinks pt still takes this but macrobid is the most recent medication filled for preventative multivitamin Tablet 1 tab PO DAILY aspirin 81 mg Tablet,Delayed Release (Dr/Ec) 81 mg PO DAILY Rx Instructions: otc unable to verify 116 calcium carbonate 500 mg calcium (1,250 mg) Tablet 500 mg PO DAILY Rx Instructions: otc unable to verify 11/6 magnesium 1 tab PO DIRECTED Discontinued levetiracetam [Keppra] 500 mg tablet 500 mg PO BID 30 Days Qty: 60 2RF Discharge Orders: Discharge Order (Routine); Ordered 01/11/25 Ordered By: Elen Bernal/Other Patient Handouts: Safety During a Seizure Admission Data Admit Date/Time: 01/10/25 11:18 Attending Provider: Chapito Lancaster Admit Provider: Alexandre Cade Primary Care Provider: Mary Lam Other Providers: Alexandre Sabillon; Matteo Posey Hospital Stay Data Consultations 01/10/25 10:47 ED Decision to Admit Stat 01/10/25 11:29 Consult Neurology Routine Diagnostic Imagining Performed Head CT 01/10/25 09:23 CT head/brain wo con CLINICAL HISTORY: 79 years-old Female with syncope. Acute syncope TECHNIQUE: Multiple axial CT images of the head were obtained without contrast. A dose lowering technique was utilized adhering to the principles of ALARA. CT DOSE: 547.75 mGy.cm COMPARISON: Brain MRI 09/19/2024 FINDINGS: No acute intracranial hemorrhage, midline shift, intracranial mass, hydrocephalus, territorial ischemia or abnormal extra-axial collection. Involutional changes with chronic microvascular ischemic disease. Chronic right basal ganglia lacunar infarcts. Cerebral vascular calcifications. The calvarium is intact. The paranasal sinuses, mastoid air cells, and middle ear cavities are clear. IMPRESSION: No acute intracranial abnormality. ACT 112: Negative or not required by law. The above report was generated using voice recognition software. It may contain grammatical, syntax or spelling errors. Electronically signed by: Carl Germain M.D. 01/10/2025 9:49 AM Chest X-Ray 01/10/25 09:24 XR chest 1V portable CLINICAL HISTORY: syncope COMPARISON STUDY: 07/11/2024 FINDINGS: Cardiac loop recorder is present. Heart size and pulmonary vasculature are normal. No effusion, consolidation, or pneumothorax. IMPRESSION: No acute findings. ACT 112: Negative or not required by law. Electronically signed by: August Leonardo M.D. 01/10/2025 10:35 AM Pending Results Patient Have Any Pending Studies at Discharge: No Discharge Instructions Given to Patient (Per Discharging Provider) Ms. Castrejon, You were hospitalized after an unresponsive event at home, this was likely a seizure. For this reason, we have increased your Keppra to 750mg twice a day. We did a echocardiogram (heart ultrasound) and looked at your loop recorder and did not find any cardiac cause for your episode. Recommendations: * Increase Keppra to 750mg twice a day * Follow up with neurology PA in 2-3 weeks. They should call you with an appointment, if you do not hear from them by Monday 01/15, please call the number above. * Follow up with PCP within one week. * Do not drive Total Time Total Time Spent Total Time Spent (In Minutes): Time spent day of discharge 36 minutes including direct patient care, medication reconciliation, documentation, review of labs and images, and coordination of care. 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
[2025-01-14] MEDS ORDERED: metHOTREXate sodium 2.5 MG TAB PO SCH (09:00)
== END 2025-01-11 12:00 | disposition home or self-care (01) ==
LOC: 2N 09:08 → ED 09:08 → SUATTDRO 11:18 → 2N 13:49

== ENCOUNTER 2025-10-13 23:45 | Observation (INO) ==
[2025-10-14 00:23] LABS: Hematocrit (blood only) 37.1 % (37.0-47.0); Hemoglobin 13.0 g/dL (12.0-16.0); Immature Granulocytes # (auto) 0.10 K/uL (0.01-0.20); Immature Granulocytes % (auto) 1.0 %; Mean Corpuscular Hemoglobin 34.9 pg (25.0-34.0); Mean Corpuscular Volume 99.7 fL (80.0-100.0); Platelet Count 188 K/uL (130-400); RDW Standard Deviation 48.7 fL (36.4-46.3); Red Blood Count 3.72 M/uL (4.20-5.40); White Blood Count 9.96 K/ul (4.8-10.8)
[2025-10-14 00:41] LABS: Alanine Aminotransferase 15.0 U/L (7-52); Albumin Globulin Ratio 0.9 (0.9-2); Albumin Level 3.5 gm/dl (3.4-5.0); Alkaline Phosphatase 77.0 U/L (34-104); Anion Gap 10.0 (3-11); Bilirubin,Total 1.2 mg/dl (0.2-1.0); Blood Urea Nitrogen 12.0 mg/dl (6-23); Calcium 8.7 mg/dl (8.6-10.3); Carbon Dioxide 23.0 mmol/L (21-32); Chloride 101.0 mmol/L (98-107); Creatinine Clr Calc Pharmacy 64.1 ml/min; Globulin 3.7 gm/dl (2.5-4.0); Glucose 208.0 mg/dl (70-99(Fasting)); Lipase 6.0 U/L (11-82); Magnesium 1.6 mg/dl (1.7-2.4); Potassium 4.0 mmol/L (3.5-5.1); Sodium 134.0 mmol/L (136-145); Total Protein 7.2 gm/dl (6.0-8.3)
[2025-10-14 00:50] LABS: INR 1.0 (0.9-1.1); Prothrombin Time 10.9 Seconds (9.0-12.0)
--- NOTE | 2025-10-14 00:51 | Emergency Department Note ---
Impression & Plan Generalized weakness, COVID-19, Hypomagnesemia ED Provider Note NAME: CHIKIS QUEZADA AGE: 80 SEX: F : 1945 ARRIVES VIA: Ambulance INFORMANT: Patient ED PROVIDER(S): Pk Hollins MD CHIEF COMPLAINT: Weakness, body aches, congestion PLAN: Disposition: Admit MEDICAL DECISION MAKING: The patient is a pleasant 80-year-old woman with a past medical history of cardiomyopathy, seizure disorder, diabetes who presents to the emergency department via EMS and then accompanied by her for generalized weakness where she was unable to walk or stand to hold her weight in setting of feeling feverishness and bodyaches with mild congestion over the past 24 hours in the setting of being aware of family members with cold symptoms over . On evaluation the patient is no acute distress, afebrile blood pressure 180s/80s with rate in the 90s and O2 saturation 93% and greater on room air. She appears clinically dry. She exhibits generalized weakness without focal neurologic deficits. EKG without overt acute ischemia. CXR negative for acute cardiopulmonary process per my personal preliminary review/interpretation. WBC, H/H and platelets within normal limits. Chemistry without metabolic acidosis. Magnesium 1.6 with IV repletion provided. LFTs unremarkable. High styptic troponin 14.8, nonspecific and similar to prior values in the setting of history of cardiomyopathy. TSH within normal limits. Procalcitonin is not elevated. Respiratory BioFire was positive for COVID-19. Findings reviewed with the patient and her at the bedside. Patient still feeling weak following gentle IV fluid hydration and IV APAP. Given the patient's generalized weakness where she is unable to ambulate they agree with plan for admission for further management. Case was discussed with Nava Alvarado, [facility] PAC and Dr. Melendez, [facility] hospitalist, who will evaluate the patient for admission. Further management per admitting team. Triage Nursing notes reviewed and agree them. Prior/external medical records reviewed Vital Signs: reviewed Differential diagnosis: Infection, dehydration, metabolic abnormality, hypo/hyperglycemia, electrolyte disturbance, anemia, hypoxia, cardiac sources, intracerebral event, toxicologic, neurologic, as well as other pathologies. ER treatment provided: See below. Diagnostics interpreted by me: ECG: Sinus rhythm, 91 bpm, PVCs, nonspecific ST and T wave abnormality, no overt ST elevation or depression, QTc 425, QRS 88. Cardiac Monitoring: An order for continuous cardiac monitoring was placed and demonstrated sinus rhythm, 91 bpm, PVCs. Laboratory studies: See below Imaging studies: See below Consultation(s): Nava Alvarado [facility] PAC and Dr. Melendez [facility] hospitalist HPI: Per MDM. ROS: See above HPI for pertinent positives & negatives. A total of 10 systems reviewed and were otherwise negative. VITALS:See Below PHYSICAL EXAMINATION: GENERAL: Awake, alert, fatigued-appearing, in no distress. HENT: Normocephalic, atraumatic. Oropharynx with dry mucous membranes and otherwise unremarkable. EYES: Normal conjunctiva. Sclera non-icteric. EOMI. No nystamgus. PEARRL. NECK: Supple. No nuchal rigidity. FROM. No JVD. RESPIRATORY: Clear to auscultation. CARDIAC: Regular rate, normal rhythm. Extremities warm and well perfused. Pulses equal. ABDOMEN: Soft, non-distended. No tenderness to palpation. No rebound or guarding. No masses. MUSCULOSKELETAL: Chest examination reveals no tenderness. The back is symmetrical on inspection without obvious abnormality. There is no CVA tenderness to palpation. No joint edema. LOWER EXTREMITIES: Calves are equal size bilaterally and non-tender. No edema. No discoloration. NEURO: Cranial nerves II-XII grossly intact. Generalized weakness without focal extremity weakness. SKIN: No rash or jaundice noted. Pk Hollins MD Past Med/Surg History Problem List (Updated 10/14/25 @ 06:05 by Pk Hollins MD) Hypomagnesemia (Acute) Hypomagnesemia COVID-19 (Acute) Generalized weakness (Acute) Implantable loop recorder present Seizure disorder Urinary symptom or sign Diabetes mellitus type 2, diet-controlled Encounter for interrogation of cardiac recorder Seizure-like activity Convulsive syncope Recurrent syncope (Acute) Mitral regurgitation Lightheadedness Frequent PVCs Cardiomyopathy ETD (eustachian tube dysfunction) Sensorineural hearing loss (SNHL) of both ears Hyponatremia (Chronic) Bilateral hearing loss (Chronic) History of squamous cell carcinoma in situ of skin Osteoarthritis, knee (Chronic 12/24/14) Medical History Chronic cerebral ischemia Unresponsive episode 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 Hypertension Other Asthma No family history of bleeding disorder Denies family history of Ovarian cancer Prostate cancer Myocardial infarction Breast cancer Colorectal cancer Social History Smoking Status: Never smoker Second Hand Exposure: No; Do You Dip or Chew Tobacco: No; Hx Alcohol Use: No Hx Substance Use: No Preferred Language: Maltese Communication Ability: Effective Visual Impairment: No Limitations Hearing Ability: Use of Hearing Aid Sap Basis Administrator Required: No Beliefs That Will Affect Care: None marital status: Current Living Situation: Spouse Current Living Situation Comment: At home w/ current occupational status: retired 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 How many Children do You have: 6 Feels Safe at Home: Yes Childhood Exposure to Second-Hand Smoke: Yes Diet: regular Dental Care, Regularly: Yes Physical Activity Frequency: Daily Seatbelt Use: always Sunscreen Use: Yes Assistive Devices: Cane and Walker Allergies Allergies Allergy/AdvReac Type Severity Reaction Status Date / Time No Known Allergies Allergy Verified 06/28/25 10:29 Home Meds Home Medications Medication Instructions Recorded Confirmed methotrexate sodium 2.5 mg tablet 15 mg PO WEEKLY 09/22/20 10/14/25 aspirin 81 mg tablet,delayed 81 mg PO DAILY 06/06/24 10/14/25 release calcium 650 mg-vitamin D3 12.5 1 tab PO DAILY 01/14/25 10/14/25 mcg-vitamin K 40 mcg chewable tablet cetirizine 10 mg tablet (Zyrtec) 10 mg PO DAILY PRN Allergy Symptoms 01/14/25 10/14/25 cinnamon bark extract 500 mg tablet 500 mg PO DAILY 01/14/25 10/14/25 d-mannose 500 mg capsule 500 mg PO DAILY 01/14/25 10/14/25 glucosamine-chondroitin 2,000 30 ml PO DAILY 01/14/25 10/14/25 mg-1,200 mg/30 mL oral liquid Bacillus coagulans 250 million 500 mmu cells PO DAILY 01/18/25 10/14/25 cell chewable tablet (Digestive Advantage Probiotic Gummy) [id number] 8 mg-folic 400 1 tab PO DAILY 01/18/25 10/14/25 mcg-K 50 mcg-lutein 300 mcg tablet (Centrum Silver Women) magnesium oxide 250 mg PO DAILY 10/14/25 10/14/25 Previous Rx's Medication Instructions Recorded potassium chloride 10 mEq 10 meq PO DAILY #180 tabs 03/29/25 tablet,extended release levetiracetam 750 mg tablet 750 mg PO BID 90 days #180 tabs 06/13/25 (Keppra) metoprolol succinate 100 mg 100 mg PO DAILY #90 tabs 06/28/25 tablet,extended release 24 hr nitrofurantoin macrocrystal 50 mg 50 mg PO HS #90 caps 07/18/25 capsule Results & Data (ED) Vital Signs Vital Signs - 24 hr 10/13/25 23:45 10/13/25 23:53 10/14/25 00:09 Temperature 37.0 C Temperature Source Oral Pulse Rate 90 83 Pulse Rate [Apical] Pulse Rhythm [Apical] Respiratory Rate 20 Respiratory Effort / Characteristics Non-Labored Spontaneous Respiratory Depth Normal Respiratory Pattern Regular Blood Pressure 187/89 H Blood Pressure [Right Arm] Blood Pressure Mean 121 Blood Pressure Mean [Right Arm] Pulse Oximetry 93 93 Oxygen Delivery Method Room Air Room Air Sepsis Recent Fever Within 48 Hours No Sepsis New/Unexplained Change in Mental Status No Sepsis Action Taken by Nursing No Action Required 10/14/25 00:45 10/14/25 01:00 10/14/25 02:40 Temperature Temperature Source Pulse Rate Pulse Rate [Apical] 75 71 61 Pulse Rhythm [Apical] Regular Respiratory Rate 19 20 21 Respiratory Effort / Characteristics Non-Labored Spontaneous Non-Labored Spontaneous Non-Labored Spontaneous Respiratory Depth Normal Normal Normal Respiratory Pattern Regular Regular Regular Blood Pressure Blood Pressure [Right Arm] 161/121 H 168/97 H 153/48 H Blood Pressure Mean Blood Pressure Mean [Right Arm] 134 120 83 Pulse Oximetry 96 96 95 Oxygen Delivery Method Room Air Room Air Room Air Sepsis Recent Fever Within 48 Hours Sepsis New/Unexplained Change in Mental Status Sepsis Action Taken by Nursing 10/14/25 03:00 Temperature Temperature Source Pulse Rate Pulse Rate [Apical] 45 L Pulse Rhythm [Apical] Respiratory Rate 20 Respiratory Effort / Characteristics Non-Labored Spontaneous Respiratory Depth Normal Respiratory Pattern Regular Blood Pressure Blood Pressure [Right Arm] 138/50 L Blood Pressure Mean Blood Pressure Mean [Right Arm] 79 Pulse Oximetry 93 Oxygen Delivery Method Room Air Sepsis Recent Fever Within 48 Hours Sepsis New/Unexplained Change in Mental Status Sepsis Action Taken by Nursing Laboratory Data Attestation: I reviewed the patient's lab results. 10/14/25 00:04 10/14/25 00:03 Lab Results 10/13/25 10/14/25 10/14/25 Range/Units 23:55 00:03 00:04 WBC 9.96 (4.8-10.8) K/ul RBC 3.72 L (4.20-5.40) M/uL Hgb 13.0 (12.0-16.0) g/dL Hct 37.1 (37.0-47.0) % MCV 99.7 (80.0-100.0) fL MCH 34.9 H (25.0-34.0) pg MCHC 35.0 (32.0-36.0) g/dL RDW Std Deviation 48.7 H (36.4-46.3) fL RDW Coeff of Connie 13.4 (11.5-14.5) % Plt Count 188 (130-400) K/uL MPV 10.1 (9.4-12.4) fL Immature Gran % (Auto) 1.0 % Neut % (Auto) 76.7 % Lymph % (Auto) 8.5 % Wilkes % (Auto) 12.6 % Eos % (Auto) 0.5 % Baso % (Auto) 0.7 % Neut # (Auto) 7.64 H (1.40-6.50) K/uL Lymph # (Auto) 0.85 L (1.20-3.40) K/uL Wilkes # (Auto) 1.25 H (0.11-0.59) K/uL Eos # (Auto) 0.05 (0.00-0.50) K/uL Baso # (Auto) 0.07 (0.00-0.20) K/uL Immature Gran # (Auto) 0.10 (0.01-0.20) K/uL PT 10.9 (9.0-12.0) Seconds INR 1.0 (0.9-1.1) Sodium 134 L (136-145) mmol/L Potassium 4.0 (3.5-5.1) mmol/L Chloride 101 (98-107) mmol/L Carbon Dioxide 23 (21-32) mmol/L Anion Gap 10 (3-11) BUN 12 (6-23) mg/dl Creatinine 0.80 (0.6-1.2) mg/dl Est Cr Clr Drug Dosing 64.1 ml/min eGFR 75.37 BUN/Creatinine Ratio 15.0 (10-20) Glucose 208 H (70-99(Fasting)) mg/dl Calcium 8.7 (8.6-10.3) mg/dl Phosphorus 2.9 (2.5-4.9) mg/dl Magnesium 1.6 L (1.7-2.4) mg/dl Total Bilirubin 1.2 H (0.2-1.0) mg/dl AST 24 (13-39) U/L ALT 15 (7-52) U/L Alkaline Phosphatase 77 (34-104) U/L Troponin I High Sens 14.8 H (0-14) pg/ml Total Protein 7.2 (6.0-8.3) gm/dl Albumin 3.5 (3.4-5.0) gm/dl Globulin 3.7 (2.5-4.0) gm/dl Albumin/Globulin Ratio 0.9 (0.9-2) Lipase 6 L (11-82) U/L Procalcitonin 0.20 (0-0.5) ng/ml TSH 1.377 (0.300-4.500) uIu/ml Adenovirus (PCR) Not Detected (NotDetected) B. pertussis DNA (PCR) Not Detected (NotDetected) B.parapertussis DNA PCR Not Detected (NotDetected) C. pneumoniae DNA (PCR) Not Detected (NotDetected) Coronavirus OC43 (PCR) Not Detected (NotDetected) Coronavirus HKU1 (PCR) Not Detected (NotDetected) Coronavirus 229E (PCR) Not Detected (NotDetected) SARS-CoV-2 (PCR) DETECTED A (NotDetected) Coronavirus NL63 (PCR) Not Detected (NotDetected) Human Metapneumovir PCR Not Detected (NotDetected) Influenza Type A (PCR) Not Detected (NotDetected) Influenza Type B (PCR) Not Detected (NotDetected) M. pneumoniae (PCR) Not Detected (NotDetected) Parainfluenza 1 (PCR) Not Detected (NotDetected) Parainfluenza 2 (PCR) Not Detected (NotDetected) Parainfluenza 3 (PCR) Not Detected (NotDetected) Parainfluenza 4 (PCR) Not Detected (NotDetected) RSV (PCR) Not Detected (NotDetected) Entero/Rhino (PCR) Not Detected (NotDetected) Administered Medications Discontinued Medications Magnesium Sulfate/Dextrose (Magnesium Sulfate / D5w) 1 gm in 100 mls @ 100 mls/hr IV NOW STA Stop: 10/14/25 01:52 Last Infusion: 10/14/25 02:34 Dose: Infused Documented By: Admin: 10/14/25 01:31 Dose: 100 mls/hr Documented By: JYOTI Sodium Chloride (Nss) 500 mls @ 999 mls/hr IV .Q31M ONE Stop: 10/14/25 01:22 Last Infusion: 10/14/25 01:45 Dose: Infused Documented By: Admin: 10/14/25 01:11 Dose: 999 mls/hr Documented By: JYOTI Acetaminophen (Ofirmev) 1,000 mg in 100 mls @ 400 mls/hr IV NOW STA Stop: 10/14/25 01:06 Last Infusion: 10/14/25 01:30 Dose: Infused Documented By: Admin: 10/14/25 01:07 Dose: 400 mls/hr Documented By: JYOTI Magnesium Sulfate/Dextrose (Magnesium Sulfate / D5w) 1 gm in 100 mls @ 50 mls/hr IV ONE ONE Stop: 10/14/25 03:52 Last Infusion: 10/14/25 04:40 Dose: Infused Documented By: Admin: 10/14/25 02:37 Dose: 50 mls/hr Documented By: JYOTI Dexamethasone 6 mg/ Syringe 1.5 mls @ 1 mls/min IV ONE ONE Stop: 10/14/25 01:54 Last Admin: 12/01/25 03:17 Dose: 1 mls/min Documented By: KLS Imaging Data Radiologist's Impression: Chest X-Ray 10/14/25 00:04 EXAM: XR chest 1V portable CLINICAL HISTORY: weakness TECHNIQUE: An X-ray image of the chest is obtained in AP projection. COMPARISON: 01/10/2025 FINDINGS: Pulmonary Parenchyma: No evidence of consolidation or collapse. Left basilar atelectasis. No evidence of pleural effusion or pleural thickening. Heart and Mediastinum: Heart size and shape are normal. No mediastinal widening or masses. No hilar or mediastinal lymphadenopathy. Atherosclerotic calcification is noted along the aortic arch. Bony Thorax: Bony thorax appears intact. Right acromioclavicular arthrosis. 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 Correlate clinically Soft Tissues: Soft tissues overlying the chest wall are unremarkable. Chest leads are noted overlying the chest wall. A cardiac loop recorder is noted. IMPRESSION: No acute pulmonary abnormalities are identified. No significant interval change Electronically signed by Dakotah Valencia 10-14-2025 01:13 AM Discharge Plan Visit Data Chief Complaint: Weakness Stated Complaint: WEAKNESS, UNABLE TO AMBULATE ED Provider: Pk Hollins Discharge Problem: Generalized weakness, COVID-19, Hypomagnesemia Patient Disposition: Admitted As Inpatient Condition: Fair Discharge Instructions Interventions: ED Discharge Assessment Last Done: 10/14/25 05:07
[2025-10-14 00:56] LABS: Thyroid Stimulating Hormone 1.377 uIu/ml (0.300-4.500)
[2025-10-14] MEDS: ACETAMINOPHEN 1,000 MG/100 ML VIAL IV STA (01:07)
[2025-10-14] MEDS: SODIUM CHLORIDE 0.9% 500 ML IV ONE (01:11)
[2025-10-14 01:13] LABS: Chlamydia pneumoniae PCR Not Detected (NotDetected); Coronavirus 229E PCR Not Detected (NotDetected); Coronavirus CoV-2 (COVID19)PCR DETECTED (NotDetected); Coronavirus HKU1 PCR Not Detected (NotDetected); Coronavirus NL63 PCR Not Detected (NotDetected); Coronavirus OC43PCR Not Detected (NotDetected); Human Metapneumovirus PCR Not Detected (NotDetected); Parainfluenza Virus 1 PCR Not Detected (NotDetected); Parainfluenza Virus 2 PCR Not Detected (NotDetected); Parainfluenza Virus 3 PCR Not Detected (NotDetected); Parainfluenza Virus 4 PCR Not Detected (NotDetected); Respiratory Syncytial VirusPCR Not Detected (NotDetected); Rhinovirus/Enterovirus PCR Not Detected (NotDetected)
--- NOTE | 2025-10-14 01:14 | XRay Report ---
EXAM: XR chest 1V portable CLINICAL HISTORY: weakness TECHNIQUE: An X-ray image of the chest is obtained in AP projection. COMPARISON: 01/10/2025 FINDINGS: Pulmonary Parenchyma: No evidence of consolidation or collapse. Left basilar atelectasis. No evidence of pleural effusion or pleural thickening. Heart and Mediastinum: Heart size and shape are normal. No mediastinal widening or masses. No hilar or mediastinal lymphadenopathy. Atherosclerotic calcification is noted along the aortic arch. Bony Thorax: Bony thorax appears intact. Right acromioclavicular arthrosis. 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 Correlate clinically Soft Tissues: Soft tissues overlying the chest wall are unremarkable. Chest leads are noted overlying the chest wall. A cardiac loop recorder is noted. IMPRESSION: No acute pulmonary abnormalities are identified. No significant interval change Electronically signed by Dakotah Valencia 10-14-2025 01:13 AM
[2025-10-14] MEDS: MAGNESIUM SULFATE / D5W 1 GM/100 ML BAG IV STA (01:31)
--- NOTE | 2025-10-14 01:52 | History & Physical Report ---
Date of Service October 14, 2025 Assessment & Plan (1) COVID-19: (2) Generalized weakness: (3) Hypomagnesemia: (4) Diabetes mellitus type 2, diet-controlled: Plan 80-year-old female PMHx OA, squamous cell carcinoma, ETD, cardiomyopathy, PVCs, MR, seizure-like activity, T2DM, seizure disorder, and loop recorder presenting for generalized weakness for 1 week. Her evaluation is without gross abnormalities of CBC, slightly decreased magnesium 1.6, elevated troponin 14.8 and BioFire positive for COVID. CXR without pneumonia. Patient feels too weak to go home. Admission for COVID-19 with associated profound weakness. #COVID-19/Weakness Recent exposure to family with similar symptoms, weakness worsening with the past 24 hours. Has not been hypoxic at all during ED course. - CBC stable; Pro-Magdi WNL - BioFire positive for COVID - CXR no actue findings - Isolation precautions, fall precautions - IS - O2 prn - DuoNeb as needed - Dexamethasone 6 mg IV - PT/OT ordered - appreciate assistance #Hypomagnesemia H/o such.; received mag sulfate 1g in ED. On Mag oxide at home. - Mg 1.6 - Mag sulfate 1g IV now - total 2 g IV - Mg am #Hyponatremia In setting of hyperglycemia. Weakness. - Na 134, glucose 208 -- corrected 137 - BMP am #Elevated troponin No current chest pain. - Troponin 14.8, pending repeat - EKG read as A-fib but appears to be artifact, no ischemic changes noted - pending repeat - Likely 2/2 demand - Will continue to monitor on tele #T2DM H/o DMT2; No home medications. - Glucose at admission 208; Most recent A1C 11/2024 @ 6.8% - pending repeat - Deferred SSI - T2DM diet #Seizures- Levetiracetam - continue #OA- Methotrexate weekly (Mondays) - may continue #HTN- Metoprolol - continue #Frequent UTIs- Pending UA; Nitrofurantoin - continue #Loop recorder/- Echo 12/2024 EF 45-50%, severe ; Follows with cardiology Dispo: Admit, med/tele VTE Prophylaxis: SCDs This document was dictated utilizing [employer]. Please excuse any grammatical errors that may be secondary to use of this software. Admission and Anticipated Discharge Date Admission Date: History of Present Illness Chief Complaint: Weakness Primary Care Provider: Mary Lam MD 80-year-old female PMHx OA, squamous cell carcinoma, ETD, cardiomyopathy, PVCs, MR, seizure-like activity, T2DM, seizure disorder, and loop recorder presenting for generalized weakness for 1 day. Patient's is present in room at time of visit and helps provide history. States that she was weak on the day of arrival that she was unable to stand by herself or go to the bathroom on her own. 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 She was exposed to multiple other sick family members on , they are unsure what the family was sick with but they had similar symptoms of cough and congestion. Patient is having some coughing that started today, nonproductive in nature. Her reports that she had 2 episodes of "collapsing but all the way to the ground" in which her legs became very weak and she started to fall down but did not hit the ground. 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 Is not SOB or with any chest pain. No palpitations. No fever or chills. Patient did not receive any COVID vaccines. Denies chest pain, SOB, palpitations, abdominal pain, N/V/D/C, numbness/tingling, fever/chills, LUTS, syncope, or falls. ED evaluation revealed CBC without leukocytosis or leukopenia, stable H&H; PT/INR WNL; CMP sodium 134, glucose 208, magnesium 1.6, bilirubin 1.2; troponin 14.8; lipase 6; procalcitonin 0.2; TSH 1.377; BioFire positive for COVID; CXR no acute findings.; Provided with 500 mL NSS, mag sulfate 1 g IV, acetaminophen 1 g IV in ED. Please see Dr. Melendez's attestation for adjustments/additions to treatment plan. Allergies Allergy/AdvReac Type Severity Reaction Status Date / Time No Known Allergies Allergy Verified 06/28/25 10:29 Home Medications Medication Instructions Recorded Confirmed Type methotrexate sodium 2.5 mg tablet 15 mg PO WEEKLY 09/22/20 10/14/25 History aspirin 81 mg tablet,delayed 81 mg PO DAILY 06/06/24 10/14/25 History release calcium 650 mg-vitamin D3 12.5 1 tab PO DAILY 01/14/25 10/14/25 History mcg-vitamin K 40 mcg chewable tablet cetirizine 10 mg tablet (Zyrtec) 10 mg PO DAILY PRN Allergy Symptoms 01/14/25 10/14/25 History cinnamon bark extract 500 mg tablet 500 mg PO DAILY 01/14/25 10/14/25 History d-mannose 500 mg capsule 500 mg PO DAILY 01/14/25 10/14/25 History glucosamine-chondroitin 2,000 30 ml PO DAILY 01/14/25 10/14/25 History mg-1,200 mg/30 mL oral liquid Bacillus coagulans 250 million 500 mmu cells PO DAILY 01/18/25 10/14/25 History cell chewable tablet (Digestive Advantage Probiotic Gummy) [id number] 8 mg-folic 400 1 tab PO DAILY 01/18/25 10/14/25 History mcg-K 50 mcg-lutein 300 mcg tablet (Centrum Silver Women) potassium chloride 10 mEq 10 meq PO DAILY #180 tabs 03/29/25 10/14/25 Rx tablet,extended release levetiracetam 750 mg tablet 750 mg PO BID 90 days #180 tabs 06/13/25 10/14/25 Rx (Keppra) metoprolol succinate 100 mg 100 mg PO DAILY #90 tabs 06/28/25 10/14/25 Rx tablet,extended release 24 hr nitrofurantoin macrocrystal 50 mg 50 mg PO HS #90 caps 07/18/25 10/14/25 Rx capsule magnesium oxide 250 mg PO DAILY 10/14/25 10/14/25 History Past Med/Surg History Problem List (Updated 10/14/25 @ 01:57 by Nava Alvarado PA-C) Hypomagnesemia COVID-19 (Acute) Generalized weakness (Acute) Implantable loop recorder present Seizure disorder Urinary symptom or sign Diabetes mellitus type 2, diet-controlled Encounter for interrogation of cardiac recorder Seizure-like activity Convulsive syncope Recurrent syncope (Acute) Mitral regurgitation Lightheadedness Frequent PVCs Cardiomyopathy ETD (eustachian tube dysfunction) Sensorineural hearing loss (SNHL) of both ears Hyponatremia (Chronic) Bilateral hearing loss (Chronic) History of squamous cell carcinoma in situ of skin Osteoarthritis, knee (Chronic 12/24/14) Medical History Chronic cerebral ischemia Unresponsive episode 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 Hypertension Other Asthma No family history of bleeding disorder Denies family history of Ovarian cancer Prostate cancer Myocardial infarction Breast cancer Colorectal cancer Social History Smoking Status: Never smoker Second Hand Exposure: No; Do You Dip or Chew Tobacco: No; Hx Alcohol Use: No Hx Substance Use: No Preferred Language: Lithuanian Communication Ability: Effective Visual Impairment: No Limitations Hearing Ability: Use of Hearing Aid Brand Communications Manager Required: No Beliefs That Will Affect Care: None marital status: Current Living Situation: Spouse Current Living Situation Comment: At home w/ current occupational status: retired 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 How many Children do You have: 6 Feels Safe at Home: Yes Childhood Exposure to Second-Hand Smoke: Yes Diet: regular Dental Care, Regularly: Yes Physical Activity Frequency: Daily Seatbelt Use: always Sunscreen Use: Yes Assistive Devices: Cane and Walker Review of Systems Review of Systems: All systems reviewed & are unremarkable except as noted in Subjective Physical Exam Physical Exam: General: No acute distress Skin: Warm and dry Head: Normocephalic, atraumatic Eyes: PERRL, conjunctivae clear, sclera non-icteric ENT: External ear and ear canal without swelling; nose atraumatic; good dentition, tongue normal appearance, pharynx normal Neck: Supple, no LAD Cardio: RRR, systolic murmur, no G/R, S1 and S2 normal Resp: No respiratory distress, Lungs CTA in all lobes bilaterally, no wheezes, rales, or rhonchi Abdomen: Soft, symmetric, nontender; No masses or hepatosplenomegaly; Bowel sounds normoactive MSK: No deformities; pulses palpable and equal; no edema. Neuro: Awake, alert; Sensation intact bilaterally; CN grossly intact Psych: Appropriate mood and affect; good judgement and insight. present room at time of visit. Results & Data Results & Data Vital Signs (Past 12 Hours) Vital Signs Temp Pulse Pulse Resp BP BP Pulse Ox 10/14/25 01:00 71 20 168/97 H 96 10/14/25 00:45 75 19 161/121 H 96 10/14/25 00:09 83 10/13/25 23:53 93 10/13/25 23:45 37.0 C 90 20 187/89 H 93 O2 Del Method 10/14/25 01:00 Room Air 10/14/25 00:45 Room Air 10/14/25 00:09 10/13/25 23:53 Room Air 10/13/25 23:45 Room Air Laboratory Results 10/14/25 10/14/25 10/13/25 00:04 00:03 23:55 WBC 9.96 RBC 3.72 L Hgb 13.0 Hct 37.1 MCV 99.7 MCH 34.9 H MCHC 35.0 RDW Std Deviation 48.7 H RDW Coeff of Connie 13.4 Plt Count 188 MPV 10.1 Immature Gran % (Auto) 1.0 Neut % (Auto) 76.7 Lymph % (Auto) 8.5 Rosebud % (Auto) 12.6 Eos % (Auto) 0.5 Baso % (Auto) 0.7 Neut # (Auto) 7.64 H Lymph # (Auto) 0.85 L Rosebud # (Auto) 1.25 H Eos # (Auto) 0.05 Baso # (Auto) 0.07 Immature Gran # (Auto) 0.10 PT 10.9 INR 1.0 Sodium 134 L Potassium 4.0 Chloride 101 Carbon Dioxide 23 Anion Gap 10 BUN 12 Creatinine 0.80 Est Cr Clr Drug Dosing 64.1 eGFR 75.37 BUN/Creatinine Ratio 15.0 Glucose 208 H Calcium 8.7 Phosphorus 2.9 Magnesium 1.6 L Total Bilirubin 1.2 H AST 24 ALT 15 Alkaline Phosphatase 77 Troponin I High Sens 14.8 H Total Protein 7.2 Albumin 3.5 Globulin 3.7 Albumin/Globulin Ratio 0.9 Lipase 6 L Procalcitonin 0.20 TSH 1.377 Adenovirus (PCR) Not Detected B. pertussis DNA (PCR) Not Detected B.parapertussis DNA PCR Not Detected C. pneumoniae DNA (PCR) Not Detected Coronavirus OC43 (PCR) Not Detected Coronavirus HKU1 (PCR) Not Detected Coronavirus 229E (PCR) Not Detected SARS-CoV-2 (PCR) DETECTED A Coronavirus NL63 (PCR) Not Detected Human Metapneumovir PCR Not Detected Influenza Type A (PCR) Not Detected Influenza Type B (PCR) Not Detected M. pneumoniae (PCR) Not Detected Parainfluenza 1 (PCR) Not Detected Parainfluenza 2 (PCR) Not Detected Parainfluenza 3 (PCR) Not Detected Parainfluenza 4 (PCR) Not Detected RSV (PCR) Not Detected Entero/Rhino (PCR) Not Detected Diagnostic Findings Chest X-Ray 10/14/25 00:04 EXAM: XR chest 1V portable CLINICAL HISTORY: weakness TECHNIQUE: An X-ray image of the chest is obtained in AP projection. COMPARISON: 01/10/2025 FINDINGS: Pulmonary Parenchyma: No evidence of consolidation or collapse. Left basilar atelectasis. No evidence of pleural effusion or pleural thickening. Heart and Mediastinum: Heart size and shape are normal. No mediastinal widening or masses. No hilar or mediastinal lymphadenopathy. Atherosclerotic calcification is noted along the aortic arch. Bony Thorax: Bony thorax appears intact. Right acromioclavicular arthrosis. 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 Correlate clinically Soft Tissues: Soft tissues overlying the chest wall are unremarkable. Chest leads are noted overlying the chest wall. A cardiac loop recorder is noted. IMPRESSION: No acute pulmonary abnormalities are identified. No significant interval change Electronically signed by Dakotah Valencia 10-14-2025 01:13 AM Medications Administered 500 mL NSS Mag sulfate 1 g IV Acetaminophen 1 g IV ECG Additional Comments: Read as A-fib with premature ventricular or aberrantly conducted complexes, ST and T wave abnormalities that are nonspecific 91 bpm, QRS 88, QT/QTc 346/425, PRT */2/68 Code Status & VTE Plan Code Status Full Supervising Physician Co-Signing Physician Notes Attending addendum: I have physically seen this patient, have supervised the ALEXIS's activities, and agree with the H&P unless as otherwise noted. Assessment and Plan: The patient is a 80-year-old female with past medical history including osteoarthritis, squamous cell carcinoma, eustachian tube dysfunction, cardiomyopathy, PVCs, MR, seizure-like activity, diabetes mellitus type 2, seizure disorder, and loop recorder. She presents to the emergency department for 1 week of generalized weakness. Workup in the emergency department was significant for a BioFire test positive for COVID infection, magnesium 1.6. COVID-19 infection/progressive generalized weakness- No signs of hypoxia Chest x-ray without acute findings Dexamethasone 6 mg IV now every morning to address fatigue COVID precautions Incentive spirometry DuoNebs every 2 hours as needed Not a candidate for antivirals Hypomagnesemia- Magnesium 1.6 on admission Give magnesium sulfate 2 g IV, recheck laboratories in a.m. Elevated troponin/hypertension/severe - Troponin 14.8 on admission Continue metoprolol Supply/demand mismatch Repeat in a.m. History of frequent urinary tract infections- Follow urine culture and sensitivity On nitrofurantoin in the outpatient setting, will discontinue for now Remaining orders and notations as noted PG Care Time/CCT Total # of Minutes Spent Total Time Spent with Patient: Total time spent is greater than 50% in coordination of care (as documented) at patient's floor/unit and/or counseling patient: Coding Level of Care Code 03738 INT INP/OBS CARE 3/75MIN Diagnoses COVID-19 U07.1 Generalized weakness R53.1 Hypomagnesemia E83.42 Diabetes mellitus type 2, diet-controlled E11.9
[2025-10-14] MEDS ORDERED: ALBUT/IPRATROP 3MG/0.5MG NEB 3 ML VIAL NEB PRN (01:53)
[2025-10-14] MEDS: MAGNESIUM SULFATE / D5W 1 GM/100 ML BAG IV ONE (02:37)
[2025-10-14] MEDS: dexAMETHasone 6 MG in SYRINGE 0 ML IV ONE (03:17)
[2025-10-14] MEDS ORDERED: ONDANSETRON INJ 2 MG/ML 2 ML VIAL IV PRN (05:42)
[2025-10-14] MEDS ORDERED: MELATONIN 3 MG TAB PO PRN (05:42)
[2025-10-14] MEDS ORDERED: POLYETHYLENE (MIRALAX) 17 GM PACK PO PRN (05:42)
[2025-10-14] MEDS ORDERED: ACETAMINOPHEN 325 MG TAB PO PRN (05:42)
[2025-10-14] MEDS: MAGNESIUM OXIDE 400 MG TAB PO SCH (09:32)
[2025-10-14] MEDS: levETIRAcetam 250 MG TAB PO SCH (09:32)
[2025-10-14] MEDS: ASPIRIN 81 MG ECTAB PO SCH (09:33)
[2025-10-14] MEDS: METOPROLOL SUCC 50MG EXT REL TAB PO SCH (09:33)
--- NOTE | 2025-10-14 10:03 | Electrocardiogram Report ---
Test Reason : Blood Pressure : */* mmHG Vent. Rate : 91 BPM Atrial Rate : * BPM P-R Int : * ms QRS Dur : 88 ms QT Int : 346 ms P-R-T Axes : * 2 68 degrees QTcB Int : 425 ms Poor data quality, interpretation may be adversely affected Normal sinus rhythm with frequent Premature atrial complexes Premature ventricular complexes Nonspecific ST and T wave abnormality Abnormal ECG When compared with ECG of 28-Jun-2025 10:14, No significant change Confirmed by Jaret Perdomo ([id number]) on 10/14/2025 10:03:31 AM Referred By: REFERRED SELF Confirmed By: Jaret Perdomo
[2025-10-14 11:44] VITALS: PULSE 58; RESP 16; TEMP 97.7
[2025-10-14 12:40] VITALS: O2SAT 95
--- NOTE | 2025-10-14 13:02 | Communication Note ---
Date of Service: October 14, 2025 By CMS guidelines, a determination that the admission or continued stay is not medically necessary has been made by a member of the UR committee and a ph ysician for this hospital stay, therefore a Code 44 will be completed and the Inpatient admission will be changed to outpatient.
--- NOTE | 2025-10-14 13:02 | Communication Note ---
Date of Service: October 14, 2025 By CMS guidelines, a determination that the admission or continued stay is not medically necessary has been made by a member of the UR committee and a phy sician for this hospital stay, therefore a Code 44 will be completed and the Inpatient admission will be changed to outpatient.
--- NOTE | 2025-10-14 13:03 | Discharge Summary ---
Discharge Summary Date of Service October 14, 2025 Principal Dx & Hospital Course #1 = Principal Diagnosis (1) COVID-19: (2) Generalized weakness: (3) Hypomagnesemia: (4) Diabetes mellitus type 2, diet-controlled: Plan 80-year-old female PMHx OA, squamous cell carcinoma, ETD, cardiomyopathy, PVCs, MR, seizure-like activity, T2DM, seizure disorder, and loop recorder presenting for generalized weakness for 1 week. Her evaluation is without gross abnormalities of CBC, slightly decreased magnesium 1.6, elevated troponin 14.8 and BioFire positive for COVID. CXR without pneumonia. Patient feels too weak to go home. Admission for COVID-19 with associated profound weakness. #COVID-19/Weakness Recent exposure to family with similar symptoms, weakness worsening with the past 24 hours. Has not been hypoxic at all during ED course. Sue felt much better today after IV fluids and some supportive care. She did well with physical therapy and Occupational Therapy and is able to return home today with home health to help her regain her baseline functional status. she had no hypoxia so ongoing steroids not indicated, she is 1 week into symptoms with only mild disease so risks of side effects are probably greater t anderson benefits for Paxlovid. #Hypomagnesemia replaced IV, continue mag oxide per her home meds very mild hyponatremia related to COVID, volume depletion, some translational hyponatremia due to hyperglycemia. She received IV fluids and sodium stable at 134 today. Asymptomatic troponin was minimally elevated at 14.8, 14.7. the EKG was a poor tracing but has been over read by the machine ii trimmer and is normal sinus rhythm with frequent PACs and PVCs, not atrial fibrillation slight troponin increase reflects minimal myocardial demand ischemia from COVID in the setting of severe aortic stenosis. No evidence of ACS she has diet controlled type 2 diabetes, hemoglobin A1c in November was 6.8 which is at goal for her age follow-up in primary care #Seizures- Levetiracetam - continue #OA- Methotrexate weekly (Mondays) - continue #HTN- Metoprolol - continue #Frequent UTIs- urinalysis negative for pyuria, continue suppressive nitrofurantoin #Loop recorder/- Echo 12/2024 EF 45-50%, severe ; Follows with cardiology Notes For Next Care Provider very mild COVID-19 Medication Changes From Visit no changes to home medications Admission HPI Per Admitting Provider 80-year-old female PMHx OA, squamous cell carcinoma, ETD, cardiomyopathy, PVCs, MR, seizure-like activity, T2DM, seizure disorder, and loop recorder presenting for generalized weakness for 1 day. Patient's is present in room at time of visit and helps provide history. States that she was weak on the day of arrival that she was unable to stand by herself or go to the bathroom on her own. 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 She was exposed to multiple other sick family members on , they are unsure what the family was sick with but they had similar symptoms of cough and congestion. Patient is having some coughing that started today, nonproductive in nature. Her reports that she had 2 episodes of "collapsing but all the way to the ground" in which her legs became very weak and she started to fall down but did not hit the ground. 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 Is not SOB or with any chest pain. No palpitations. No fever or chills. Patient did not receive any COVID vaccines. Denies chest pain, SOB, palpitations, abdominal pain, N/V/D/C, numbness/tingling, fever/chills, LUTS, syncope, or falls. ED evaluation revealed CBC without leukocytosis or leukopenia, stable H&H; PT/INR WNL; CMP sodium 134, glucose 208, magnesium 1.6, bilirubin 1.2; troponin 14.8; lipase 6; procalcitonin 0.2; TSH 1.377; BioFire positive for COVID; CXR no acute findings.; Provided with 500 mL NSS, mag sulfate 1 g IV, acetaminophen 1 g IV in ED. Please see Dr. Melendez's attestation for adjustments/additions to treatment plan. Discharge Plan Discharge Items Patient Disposition: Home - Home Health Services Reason For Visit: COVID, WEAK Discharge Diagnosis: COVID-19, generalized weakness Condition on Discharge: Good Activity: Resume your previous activity Non-emergency contact: Primary Care Provider Call non-emergency contact if: you have any medication questions and your symptoms worsen Follow-up/Referrals: Mary Lam MD [Primary Care Provider] - 10/24/25 10:20 am Diet: Carb Consistent or DM2 Addtl Attending Provider Instructions: You were diagnosed with COVID-19. This is causing cough, malaise, generalized weakness Fortunately you are not severely ill and your oxygen levels are normal Since you've had symptoms for almost a week and symptoms are mild, you're unlikely to benefit from antiviral treatment like paxlovid at this time You did well with PT and OT Home health PT and OT is recommended to help regain your strength Stay hydrated Take acetaminophen for fever, aches and pains related to the COVID. You can safely take up to 3000 mg per 24h If the acetaminophen is ineffective it is ok to take ibuprofen 400 mg no more than three times a day. Use this sparingly and only for a few days. It's ok to take over the counter cough medicine - guaifenasin alone is the safest kind It was a pleasure taking care of you in the hospital, Cheryl Nguyen MD Pending Studies at Discharge: No Stand-Alone Forms: My [facility], Smoking Cessation Medications and DC Order Prescriptions: Continued calcium-vitamin D3-vitamin K 650 mg-12.5 mcg-40 mcg tablet,chewable 1 tab PO DAILY cetirizine [Zyrtec] 10 mg tablet 10 mg PO DAILY PRN (Reason: Allergy Symptoms) glucosamine-chondroitin 2,000-1,200 mg/30 mL liquid 30 ml PO DAILY Rx Instructions: give with food (meal/snack) d-mannose 500 mg capsule 500 mg PO DAILY cinnamon bark extract 500 mg tablet 500 mg PO DAILY potassium chloride 10 mEq tablet extended release 10 meq PO DAILY Qty: 180 1RF Dose Instruction: TAKE 2 TABLETS BY MOUTH DAILY FOR HYPOKALEMIA Rx Instructions: TAKE 1 TABLETS BY MOUTH DAILY FOR HYPOKALEMIA nitrofurantoin macrocrystal 50 mg capsule 50 mg PO HS Qty: 90 3RF Rx Instructions: must administer with a meal/food methotrexate sodium 2.5 mg tablet 15 mg PO WEEKLY Patient Comments: PO WEEKLY; Rx Instructions: 6 tablet dose on Mondays Digestive Advantage Prob Gummy 250 million cell tablet,chewable 500 mmu cells PO DAILY Centrum Silver Women 8 mg iron-400 mcg-50 mcg tablet 1 tab PO DAILY levetiracetam [Keppra] 750 mg tablet 750 mg PO BID 90 Days Qty: 180 3RF metoprolol succinate 100 mg tablet extended release 24 hr 100 mg PO DAILY Qty: 90 3RF aspirin 81 mg Tablet,Delayed Release (Dr/Ec) 81 mg PO DAILY magnesium oxide 250 mg magnesium Tablet 250 mg PO DAILY Discharge Orders: Discharge Order (Routine); Ordered 10/14/25 Ordered By: Cheryl Bernal/Other Patient Handouts: COVID-19 Home Care, Diabetes: Meal Planning, Type 2 Diabetes Admission Data Admit Date/Time: 10/14/25 03:32 Attending Provider: Cheryl Nguyen Admit Provider: Nithin Melendez Primary Care Provider: Mary Lam Other Providers: Nithin Melendez; Alberto Joy [facility] Other Interventions: Discharge Summary Assessment (RN) Last Done: 10/14/25 14:37 Hospital Stay Data Consultations 10/14/25 01:32 ED Decision to Admit Stat Pending Results Patient Have Any Pending Studies at Discharge: No Discharge Instructions Given to Patient (Per Discharging Provider) You were diagnosed with COVID-19. This is causing cough, malaise, generalized weakness Fortunately you are not severely ill and your oxygen levels are normal Since you've had symptoms for almost a week and symptoms are mild, you're unlikely to benefit from antiviral treatment like paxlovid at this time You did well with PT and OT Home health PT and OT is recommended to help regain your strength Stay hydrated Take acetaminophen for fever, aches and pains related to the COVID. You can safely take up to 3000 mg per 24h If the acetaminophen is ineffective it is ok to take ibuprofen 400 mg no more than three times a day. Use this sparingly and only for a few days. It's ok to take over the counter cough medicine - guaifenasin alone is the safest kind It was a pleasure taking care of you in the hospital, Cheryl Nguyen MD Total Time Total Time Spent Total Time Spent (In Minutes): less than 30 minutes Coding Level of Care Code 71903 IN/OBS DISCH 30 MIN/LESS Diagnoses COVID-19 U07.1 Generalized weakness R53.1 Hypomagnesemia E83.42 Diabetes mellitus type 2, diet-controlled E11.9
[2025-10-14] MEDS: INFLUENZA VACC TS2025-26(65y+)/PF (IIV3) 0.5mL Syr IM ONE (13:16)
[2025-10-14 14:40] VITALS: BP 142/73
== END 2025-10-14 16:30 | disposition home health service (06) ==
LOC: ED 23:45 → SUATTDRO 10-14 03:32 → INTOOBSV 10-14 03:32 → 2N 10-14 03:32